=== PATIENT | female | born 1960 | race Caucasian/White ===

== ENCOUNTER 2018-10-28 10:48 | Observation (INO) | payer MEDICARE, OTHER ==
[2018-10-24 14:25] LABS: BASOPHILS % 0.4 % (0.0-1.0); EOSINOPHILS # (AUTO) 0.1 (0.0-0.4); EOSINOPHILS % 1.1 % (0.0-6.0); HEMATOCRIT 44.6 % (34.2-44.1); HEMOGLOBIN 14.9 g/dL (12.0-16.0); LYMPHOCYTES # (AUTO) 1.9 (1.0-3.2); LYMPHOCYTES % 27.2 % (18.0-39.1); MEAN CORPUSCULAR HGB CONC 33.4 g/dL (31-35); MEAN CORPUSCULAR VOLUME 86.8 fL (81-99); MONOCYTES # (AUTO) 0.6 (0.2-0.8); NEUTROPHILS # (AUTO) 4.3 (2.1-6.9); NEUTROPHILS % 61.9 % (38.7-80.0); PLATELET COUNT 205 x10e3/uL (140-360); RED BLOOD COUNT 5.14 x10e6/uL (3.6-5.1); RED CELL DISTRIBUTION WIDTH 12.3 % (11.7-14.4)
[2018-10-24 14:41] LABS: ANION GAP 19.2 mmol/L (8-16); BLOOD UREA NITROGEN 10 mg/dL (7-26); BUN/CREATININE RATIO 13 (6-25); CALCIUM 9.7 mg/dL (8.4-10.2); CARBON DIOXIDE 30 mmol/L (22-29); CHLORIDE 94 mmol/L (98-107); CREATININE, SERUM 0.77 mg/dL (0.57-1.11); EST GLOMERULAR FILTRATION RATE > 60 ML/MIN (60-); GLUCOSE 151 mg/dL (74-118); POTASSIUM 4.2 mmol/L (3.5-5.1); SODIUM 139 mmol/L (136-145)
[~2018-10-28] VITALS: Ht 172.7 cm; Wt 137.0 kg
[~2018-10-28 10:48] MED LIST: AMLODIPINE BESYL5 MG PO; CYCLOBENZAPRINE10 MG PO; CYMBALTA30 MG PO; FUROSEMIDE40 MG PO; GABAPENTIN400 MG PO; GLIPIZIDE ER5 MG PO; HUMULIN R100 UNIT/2 SC; INSULIN 70/30 SQ; JANUVIA100 MG PO; METFORMIN HCL500 M1 PO; MYRBETRIQ50 MG PO; PRAMIPEXOLE D0.25 MG PO; PRAVASTATIN SOD40 MG PO; TYLENOL WITH C1 EAC1 PO; VASOTEC10 MG PO
--- OUTSIDE RECORDS SUMMARY | 2018-10-28 10:53 | XMS REPORT ---
Author Author [facility] Address Unknown Phone Unavailable Care Team Providers Care Visual Associate Name Role Phone Unavailable Unavailable Problems This patient has no known problems. Allergies, Adverse Reactions, Alerts This patient has no known allergies or adverse reactions. Medications This patient has no known medications. Results Test Description Test Time Test Comments Text Results Atomic Results Result Comments SCR MAMM BILATERAL DOMINIQUE CAD DIGITAL 2018-04-14 16:43:19 - SCR MAMM BILATERAL DOMINIQUE CAD DIGITALBILATERAL DIGITAL SCREENING MAMMOGRAM 3D/2D WITH CAD: 03/28/2018CLINICAL: Asymptomatic. Digital breast tomosynthesis was performed in addition to routine CC and MLO views. Current mammographic images were evaluated by either a [employer] M-Vu or a [employer] ImageChecker CAD (computer aided detection system). Comparison is made to exams dated 01/28/2013 mammogram, mammogram, and 09/12/2010 mammogram - [facility]. There are scattered fibroglandular tissues in both breasts. There are benign calcifications in both breasts. No suspicious mass, architectural distortion, malignant type calcification, or lymph node abnormality detected. Breast architecture is stable compared to prior exams.IMPRESSION: BENIGNThere is no mammographic evidence of malignancy. Resume annual screening mammography in one year. Saba roe/arabella:04/14/2018 16:43:19 Entry: bhupinder - 04/15/2018 11:04:16Attending Technologist: Estefany Buck MM, [facility] [place] [facility] MammographyImaging Technologist: Britney Thompson MM, [facility] [place] Mobile Mammographyletter sent: BIRADS 1-2 Normal Mammogram BI-RADS: 2 Benign
[2018-10-28] MEDS ORDERED: CEFAZOLIN SOD 1 GM/NS 50ML 50 ML IV ONE (11:18)
[2018-10-28] MEDS ORDERED: BACITRACIN 50,000 UNIT VIAL ONE (14:52)
[2018-10-28] MEDS ORDERED: BUPIVACAINE HCL 0.5% INJ 30 ML VIAL INJ ONE (15:03)
[2018-10-28] MEDS ORDERED: MORPHINE SULFATE 5 MG/ML VIAL IV PRN (15:15)
[2018-10-28] MEDS ORDERED: DEXTROSE 50% SYRINGE 50 ML IV PRN (15:15)
[2018-10-28] MEDS ORDERED: HYDROCODONE/APAP 5MG-325MG TAB PO PRN (15:15)
[2018-10-28] MEDS ORDERED: ONDANSETRON HCL INJ 2MG/ML 2ML 2 MG/ML VIAL IV PRN (15:15)
[2018-10-28] MEDS ORDERED: METOCLOPRAMIDE HCL 10 MG/2ML VIAL ONE (15:40)
--- NOTE | 2018-10-28 16:02 | Operative Report ---
DATE OF PROCEDURE: 10/28/2018 SURGEON: Alejandro Stone MD PREOPERATIVE DIAGNOSIS: Incarcerated incisional hernia. POSTOPERATIVE DIAGNOSIS: Incarcerated incisional hernia. PROCEDURES: Repair of incarcerated incisional hernia with mesh, partial omentectomy. STAMP MAKER: None. ANESTHESIA: General. INDICATIONS AND FINDINGS: The patient is a 58-year-old female, who presented with complaints of pain and bulge at the upper end of her lower midline wound from previous surgery. Surgery based on the chronically incarcerated incisional hernia, containing a large mass of omentum, which could not be reduced. The herniated mass was about 12 cm in diameter while the fascial defect was about 3 cm in diameter. TECHNIQUE: After adequate general endotracheal anesthesia, the patient in supine position, the abdomen was prepped and draped in sterile fashion with ChloraPrep solution. Transverse incision was made over the area of the hernia, carried down through subcutaneous tissue. The herniated mass was dissected free from the surrounding tissues down to the fascia and freed from the fascia throughout the circumference of the hernia defect. Hernia sac was opened, contained omentum which could not be reduced in the peritoneal cavity. Partial omentectomy was done. The omentum was divided between clamps and the herniated omentum removed and the divided omentum ligated with 2-0 Vicryl. This was then reduced through the hernia defect into the peritoneal cavity. A few adhesions of the edge of the fascia were also lysed. A Sepramesh of appropriate size was soaked in antibiotic solution placed on the undersurface of the fascia and sutured to the undersurface of the fascia with a running horizontal mattress suture of 0 prolene. Thinned out edge of the fascia were then closed transversely over the mesh with a running suture of 0 prolene. Hemostasis of the wound was seen to be adequate. It was irrigated with antibiotic solution, it was then infiltrated with 0.5% Marcaine. A 19-Lao Noe drain was placed in the wound through a separate stab incision. The wound was then closed with 3-0 Vicryl, subcutaneous tissue and denzel for the skin. Sterile dressing was applied. The patient tolerated the procedure well. Estimated blood loss was 50 mL. There were no complications. All counts were correct. The patient was taken to the recovery room in satisfactory condition. MD FE Gloria/WOODY /[id number]
[2018-10-28] MEDS: INSULIN LISPRO 100 UNIT/1 ML 3ML VIAL SQ SCH ×2 (16:30→21:15)
[2018-10-28 16:50] VITALS: BP 121/58
[2018-10-28 16:52] VITALS: BP 124/55
[2018-10-28] MEDS ORDERED: INSULIN SQ SCH (17:00)
[2018-10-28] MEDS ORDERED: MORPHINE SULFATE INJ 4 MG/ML INJ 1ML IV PRN (17:15)
[2018-10-28] MEDS ORDERED: LABETALOL HCL 5 MG/ML 20ML VIAL ONE (17:25)
[2018-10-28] MEDS ORDERED: LIDOCAINE HCL 2% LOCAL INJ 5 ML SDV VIAL INJ ONE (17:25)
[2018-10-28] MEDS ORDERED: ROCURONIUM BROMIDE 10 MG/ML 5ML VIAL ONE (17:25)
[2018-10-28] MEDS ORDERED: SEVOFLURANE INHAL SOLN 250 ML PEN BTL ONE (17:25)
[2018-10-28] MEDS ORDERED: DEXAMETHASONE SOD PHOS INJ 4 MG/ML VIAL ONE (17:25)
[2018-10-28] MEDS ORDERED: SUCCINYLCHOLINE 200 MG/10 ML SYR ONE (17:25)
[2018-10-28] MEDS ORDERED: ONDANSETRON HCL INJ 2MG/ML 2ML 2 MG/ML VIAL ONE (17:25)
[2018-10-28] MEDS ORDERED: PROPOFOL IV EMULSION 10 MG/ML 20 ML VIAL ONE (17:25)
[2018-10-28] MEDS: HUMULIN 70/30 VIAL SQ SCH (17:30)
[2018-10-28] MEDS: ENALAPRIL MALEATE 10 MG TAB PO SCH (17:33)
[2018-10-28] MEDS: GLIPIZIDE 5 MG TAB ER PO SCH (17:33)
[2018-10-28] MEDS: GABAPENTIN 400 MG CAP PO SCH (17:33)
[2018-10-28] MEDS: METFORMIN HCL 500 MG TAB CR PO SCH (17:33)
[2018-10-28] MEDS ORDERED: FENTANYL CITRATE/PF 100MCG/2 ML INJ ONE (18:47)
[2018-10-28] MEDS ORDERED: MIDAZOLAM HCL 2 MG/2 ML VIAL ONE (18:47)
[2018-10-28 20:00] VITALS: BP 105/53
[2018-10-28] MEDS ORDERED: PRAVASTATIN 20 MG TAB PO SCH (21:00)
[2018-10-28] MEDS ORDERED: NON-FORMULARY MEDICATION (Pravastatin Sodium 40 MG) PO SCH (21:00)
[2018-10-28] MEDS ORDERED: PRAMIPEXOLE DIHYDROCHLORIDE 0.25 MG TAB PO SCH (21:00)
[2018-10-28] MEDS: CYCLOBENZAPRINE HCL 10 MG TAB PO SCH (21:16)
[2018-10-29] VITALS: BP 126/57
[2018-10-29] MEDS: SODIUM CHLORIDE 0.9% 1000ML 1,000 ML IV SCH ×3 (01:04→11:04)
[2018-10-29 04:00] VITALS: BP 130/68
[2018-10-29 05:17] VITALS: BP 126/57
[2018-10-29 05:44] LABS: BASOPHILS % 0.3 % (0.0-1.0); HEMATOCRIT 37.2 % (34.2-44.1); HEMOGLOBIN 12.3 g/dL (12.0-16.0); LYMPHOCYTES # (AUTO) 1.3 (1.0-3.2); LYMPHOCYTES % 16.5 % (18.0-39.1); MEAN CORPUSCULAR HEMOGLOBIN 28.5 pg (28-32); MEAN CORPUSCULAR HGB CONC 33.1 g/dL (31-35); MEAN CORPUSCULAR VOLUME 86.1 fL (81-99); MONOCYTES # (AUTO) 0.9 (0.2-0.8); MONOCYTES % 10.9 % (4.4-11.3); NEUTROPHILS # (AUTO) 5.7 (2.1-6.9); NEUTROPHILS % 71.7 % (38.7-80.0); PLATELET COUNT 180 x10e3/uL (140-360); RED BLOOD COUNT 4.32 x10e6/uL (3.6-5.1); RED CELL DISTRIBUTION WIDTH 12.5 % (11.7-14.4)
[2018-10-29 06:05] LABS: ANION GAP 17.2 mmol/L (8-16); BLOOD UREA NITROGEN 17 mg/dL (7-26); BUN/CREATININE RATIO 20 (6-25); CARBON DIOXIDE 26 mmol/L (22-29); CHLORIDE 97 mmol/L (98-107); CREATININE, SERUM 0.83 mg/dL (0.57-1.11); EST GLOMERULAR FILTRATION RATE > 60 ML/MIN (60-); GLUCOSE 319 mg/dL (74-118); POTASSIUM 5.2 mmol/L (3.5-5.1); SODIUM 135 mmol/L (136-145)
--- NOTE | 2018-10-29 06:50 | NUR ---
Report given to LYNN Bruce dayshift nurse at this time.
[2018-10-29] MEDS ORDERED: SOD POLYSTYRENE SULFONATE SUSP 15 GM/60 ML BTL PO ONE (07:45)
[2018-10-29] MEDS ORDERED: NORCO 5-325 TA1 EACH PO (07:53)
[2018-10-29] MEDS ORDERED: SOD POLYSTYRENE SULFONATE SUSP 15 GM/60 ML BTL ONE (08:06)
[2018-10-29 08:14] VITALS: BP 114/61
[2018-10-29] MEDS: INSULIN LISPRO 100 UNIT/1 ML 3ML VIAL SQ SCH ×2 (08:22→12:12)
[2018-10-29] MEDS: CYCLOBENZAPRINE HCL 10 MG TAB PO SCH (08:23)
[2018-10-29] MEDS: METFORMIN HCL 500 MG TAB CR PO SCH (08:23)
[2018-10-29] MEDS: GABAPENTIN 400 MG CAP PO SCH (08:23)
[2018-10-29] MEDS: GLIPIZIDE 5 MG TAB ER PO SCH (08:23)
[2018-10-29] MEDS: ENALAPRIL MALEATE 10 MG TAB PO SCH (08:24)
--- NOTE | 2018-10-29 08:25 | NUR ---
discharge instructions and prescriptions given. theron drain teaching complete iv dc pressure dressing applied and taped pt is waiting for ride home
[2018-10-29] MEDS: HUMULIN 70/30 VIAL SQ SCH (08:49)
[2018-10-29] MEDS ORDERED: DULOXETINE HCL 20 MG DELAYED RELEASE PO SCH (09:00)
[2018-10-29] MEDS ORDERED: FUROSEMIDE 20 MG TAB PO SCH (09:00)
[2018-10-29] MEDS ORDERED: MYRBETRIQ PO SCH (09:00)
[2018-10-29] MEDS ORDERED: AMLODIPINE BESYLATE 5 MG TAB PO SCH (09:00)
[2018-10-29] MEDS ORDERED: FUROSEMIDE 40 MG TAB PO SCH (09:00)
[2018-10-29] MEDS ORDERED: DULOXETINE HCL 30 MG DELAYED RELEASE PO SCH (09:00)
[2018-10-29] MEDS ORDERED: SITAGLIPTIN 100 MG TAB PO SCH (09:00)
[2018-10-29] MEDS ORDERED: ONDANSETRON HCL 4 MG ORAL DISINTEGRATING TAB PO PRN (09:15)
[2018-10-29 09:44] VITALS: BP 114/61
[2018-10-29 12:22] VITALS: BP 138/63
--- NOTE | 2018-10-29 12:25 | NUR ---
PT OFF UNIT TO HOME VIA WHEEL CHAIR
--- NOTE | 2018-10-29 17:43 | NUR ---
KUMAR EXPLAINED TO PT, SIGNED BY PT AND PLACED ON CHART COPY TO PT IN CARE TRANSITIONS FOLDER
[2018-10-29] MEDS ORDERED: SIMVASTATIN 20 MG TAB PO SCH (21:00)
== END 2018-10-29 12:25 | disposition home or self-care (01) ==
LOC: OR 10:48 → RAD HOLD 15:26 → MED/SURG 16:42
PROVIDERS: ADMIT Surgery; ATTEND Surgery
DX: K43.0 Incisional hernia with obstruction, without gangrene (principal); I10 Essential (primary) hypertension; E11.9 Type 2 diabetes mellitus without complications; E78.5 Hyperlipidemia, unspecified; G62.9 Polyneuropathy, unspecified; F32.9 Major depressive disorder, single episode, unspecified
CPT/HCPCS: 36415 ×3; 49561; 49568; 80048 ×2; 82948 ×2; 85025 ×2; 88302; 93005; C1781; G0378 ×2; J0690; J1100; J2001; J2250; J2405; J2704; J2765; J3010; J3490; J7030

== ENCOUNTER 2018-11-05 17:37 | Inpatient (IN) | payer MEDICARE, OTHER ==
[~2018-11-05] VITALS: Ht 172.7 cm; Wt 142.9 kg
[~2018-11-05 17:37] MED LIST changes: +NORCO 5-325 TA1 EACH PO
[2018-11-05] MEDS ORDERED: ASPIRIN 81 MG CHEW TAB PO ONE (18:15)
[2018-11-05 18:26] LABS: BASOPHILS % 0.2 % (0.0-1.0); EOSINOPHILS % 0.2 % (0.0-6.0); HEMATOCRIT 35.8 % (34.2-44.1); HEMOGLOBIN 12.1 g/dL (12.0-16.0); LYMPHOCYTES # (AUTO) 1.2 (1.0-3.2); MEAN CORPUSCULAR HEMOGLOBIN 28.9 pg (28-32); MEAN CORPUSCULAR HGB CONC 33.8 g/dL (31-35); MEAN CORPUSCULAR VOLUME 85.6 fL (81-99); MONOCYTES # (AUTO) 1.3 (0.2-0.8); MONOCYTES % 12.4 % (4.4-11.3); NEUTROPHILS % 75.5 % (38.7-80.0); PLATELET COUNT 208 x10e3/uL (140-360); RED BLOOD COUNT 4.18 x10e6/uL (3.6-5.1); RED CELL DISTRIBUTION WIDTH 12.6 % (11.7-14.4)
[2018-11-05] MEDS ORDERED: ONDANSETRON HCL INJ 2MG/ML 2ML 2 MG/ML VIAL IV ONE (18:29)
[2018-11-05] MEDS ORDERED: SODIUM CHLORIDE 0.9% 1000ML 1,000 ML IV STA (18:29)
[2018-11-05] MEDS ORDERED: KETOROLAC TROMETHAMINE 30 MG/ML VIAL IV ONE (18:29)
[2018-11-05] MEDS ORDERED: ACETAMINOPHEN 325 MG TAB PO PRN (18:30)
[2018-11-05 18:35] LABS: INR 1.11; PROTHROMBIN TIME 14.8 seconds (11.9-14.5)
[2018-11-05 18:36] LABS: PARTIAL THROMBOPLASTIN TIME 36.6 seconds (23.8-35.5)
[2018-11-05 18:42] LABS: ALANINE AMINOTRANSFERASE 27 IU/L (0-55); ALBUMIN 2.7 g/dL (3.5-5.0); ALBUMIN/GLOBULIN RATIO 0.7 (0.8-2.0); ALKALINE PHOSPHATASE 84 IU/L (40-150); ANION GAP 17.4 mmol/L (8-16); BLOOD UREA NITROGEN 10 mg/dL (7-26); BUN/CREATININE RATIO 11 (6-25); CALCIUM 9.2 mg/dL (8.4-10.2); CARBON DIOXIDE 25 mmol/L (22-29); CHLORIDE 94 mmol/L (98-107); CREATINE KINASE 60 IU/L (29-168); CREATININE, SERUM 0.88 mg/dL (0.57-1.11); EST GLOMERULAR FILTRATION RATE > 60 ML/MIN (60-); GLUCOSE 239 mg/dL (74-118); POTASSIUM 4.4 mmol/L (3.5-5.1); SODIUM 132 mmol/L (136-145)
[2018-11-05] MEDS ORDERED: PIPER-TAZ 3.375 GM 50 ML IV ONE (18:45)
[2018-11-05] MEDS ORDERED: VANCOMYCIN 1GM/NS 250 ML 250 ML IV ONE (18:45)
--- NOTE | 2018-11-05 19:53 | Diagnostic Imaging Report ---
EXAM: CT Abdomen and Pelvis WITH contrast INDICATION: ^abd pain COMPARISON: None. TECHNIQUE: Abdomen and pelvis were scanned utilizing a multidetector helical scanner from the lung base to the pubic symphysis after administration of IV contrast. Coronal and sagittal reformations were obtained. Dose modulation, iterative reconstruction, and/or weight based adjustment of the mA/kV was utilized to reduce the radiation dose to as low as reasonably achievable. Routine protocol was performed. Scan was performed when during portal venous phase. IV CONTRAST: 100 mL of Isovue-370 ORAL CONTRAST: None. COMPLICATIONS: None RADIATION DOSE: Total DLP: 1254.63 mGy*cm Estimated effective dose: (DLP x 0.015 x size factor) mSv CTDIvol has been reviewed. It is below the limits set by the Radiation Protocol Committee (RPC). FINDINGS: LINES and TUBES: None. LOWER THORAX: Right lower lobe calcified granuloma. Otherwise, unremarkable. HEPATOBILIARY: Hepatomegaly. No focal hepatic lesions. No biliary ductal dilation. GALLBLADDER: Not visualized. SPLEEN: Splenomegaly. Several punctate calcified granulomas. PANCREAS: No focal masses or ductal dilatation. ADRENALS: No adrenal nodules KIDNEYS/URETERS: Kidneys enhance symmetrically. No hydronephrosis. No cystic or solid mass lesions. No stones. GI TRACT: No abnormal distention, wall thickening, or evidence of bowel obstruction. Appendix is normal. PELVIC ORGANS/BLADDER: Unremarkable. LYMPH NODES: No lymphadenopathy. VESSELS: Unremarkable. PERITONEUM / RETROPERITONEUM: No free air or fluid. BONES: Degenerative changes of the thoracolumbar spine. SOFT TISSUES: Persistent fat-containing periumbilical hernia measuring 6.3 x 4.3 cm. There is adjacent abdominal wall gas containing collection measuring 9.4 x 5.8 cm with adjacent moderate inflammation/edema of the abdominal wall. IMPRESSION: 1. Fat-containing periumbilical hernia with internal fat stranding. Adjacent approximately 9.4 cm abdominal wall gas containing fluid collection, concerning for developing abscess. Surrounding inflammation/edema. 2. Hepatosplenomegaly. Signed by: Dr. Sunny Valentine MD on 11/05/2018 7:50 PM
--- NOTE | 2018-11-05 19:54 | Diagnostic Imaging Report ---
EXAMINATION: CHEST SINGLE (PORTABLE) INDICATION: ^ERMD ORDER ^[id number] ^192 ^Y COMPARISON: None FINDINGS: AP view TUBES and LINES: None. LUNGS: Lungs are well inflated. There is no evidence of pneumonia or pulmonary edema. PLEURA: No pleural effusion or pneumothorax. HEART AND MEDIASTINUM: The cardiomediastinal silhouette is unremarkable. BONES AND SOFT TISSUES: No acute osseous lesion. Soft tissues are unremarkable. UPPER ABDOMEN: No free air under the diaphragm. IMPRESSION: No acute thoracic abnormality. Signed by: Dr. Sunny Valentine MD on 11/05/2018 7:50 PM
[2018-11-05] MEDS ORDERED: MORPHINE SULFATE 2 MG/ML SYR 1ML IV PRN (20:45)
[2018-11-05] MEDS ORDERED: MORPHINE SULFATE INJ 4 MG/ML INJ 1ML IV PRN (20:45)
[2018-11-05] MEDS ORDERED: DEXTROSE 50% SYRINGE 50 ML IV PRN (20:45)
[2018-11-05] MEDS: INSULIN REGULAR, HUMAN 100 UNIT/1 ML 3ML VIAL SQ SCH (21:00)
[2018-11-05] MEDS ORDERED: SODIUM CHLORIDE 0.9% 50ML 50 ML ONE (21:23)
[2018-11-05] MEDS ORDERED: IOPAMIDOL 370 MG/ML 200 ML INFUS..BTL INJ ONE (21:23)
[2018-11-05] MEDS: SODIUM CHLORIDE 0.9% 1000ML 1,000 ML IV SCH (22:06)
[2018-11-05] MEDS: ONDANSETRON HCL INJ 2MG/ML 2ML 2 MG/ML VIAL IV PRN (22:06)
[2018-11-05] MEDS: CEFEPIME 1GM/NS 0.9% 50 ML 50 ML IV SCH (22:06)
--- NOTE | 2018-11-05 22:23 | NUR ---
Received report from ER nurse.
[2018-11-05] MEDS: ACETAMINOPHEN 325 MG TAB PO PRN (22:54)
[2018-11-05] MEDS: VANCOMYCIN 1GM/NS 250 ML 250 ML IV SCH (22:54)
--- NOTE | 2018-11-05 23:00 | NUR ---
Patient arrived to floor via stretcher.
[2018-11-05] MEDS: METRONIDAZOLE 500MG/NS 100ML 100 ML IV SCH (23:40)
[2018-11-06] VITALS (8 sets, daily range): BP systolic 118–152; BP diastolic 56–67
[2018-11-06] MEDS: ONDANSETRON HCL INJ 2MG/ML 2ML 2 MG/ML VIAL IV PRN ×2 (03:32→23:09)
--- NOTE | 2018-11-06 03:32 | NUR ---
Patient c/o nausea, meds given as ordered by MD.
[2018-11-06] MEDS: ACETAMINOPHEN 325 MG TAB PO PRN ×2 (05:19→14:30)
[2018-11-06] MEDS: METRONIDAZOLE 500MG/NS 100ML 100 ML IV SCH ×3 (05:20→23:50)
[2018-11-06 05:24] LABS: BASOPHILS % 0.3 % (0.0-1.0); EOSINOPHILS % 0.3 % (0.0-6.0); HEMATOCRIT 34.8 % (34.2-44.1); HEMOGLOBIN 11.5 g/dL (12.0-16.0); LYMPHOCYTES # (AUTO) 1.5 (1.0-3.2); LYMPHOCYTES % 13.6 % (18.0-39.1); MEAN CORPUSCULAR HEMOGLOBIN 28.7 pg (28-32); MEAN CORPUSCULAR VOLUME 86.8 fL (81-99); MONOCYTES # (AUTO) 1.6 (0.2-0.8); MONOCYTES % 14.5 % (4.4-11.3); NEUTROPHILS % 70.6 % (38.7-80.0); PLATELET COUNT 182 x10e3/uL (140-360); RED BLOOD COUNT 4.01 x10e6/uL (3.6-5.1); RED CELL DISTRIBUTION WIDTH 12.7 % (11.7-14.4)
[2018-11-06] MEDS ORDERED: MECLIZINE HCL 12.5 MG TAB PO PRN (05:30)
[2018-11-06 05:38] LABS: ANION GAP 14.9 mmol/L (8-16); BLOOD UREA NITROGEN 15 mg/dL (7-26); BUN/CREATININE RATIO 19 (6-25); CALCIUM 9.2 mg/dL (8.4-10.2); CARBON DIOXIDE 25 mmol/L (22-29); CHLORIDE 99 mmol/L (98-107); EST GLOMERULAR FILTRATION RATE > 60 ML/MIN (60-); GLUCOSE 246 mg/dL (74-118); POTASSIUM 4.9 mmol/L (3.5-5.1); SODIUM 134 mmol/L (136-145)
[2018-11-06] MEDS: PIPER-TAZ 3.375 GM 50 ML IV SCH ×3 (05:51→18:10)
[2018-11-06] MEDS: SODIUM CHLORIDE 0.9% 1000ML 1,000 ML IV SCH ×2 (06:32→18:18)
--- NOTE | 2018-11-06 07:00 | NUR ---
BEDSIDE SHIFT REPORT RECEIVED FROM THE COMMERCIAL CORRESPONDENT RN. PT DENIES NEEDS AT THIS TIME.
[2018-11-06] MEDS: INSULIN REGULAR, HUMAN 100 UNIT/1 ML 3ML VIAL SQ SCH ×4 (08:00→21:00)
[2018-11-06 08:06] LABS: BILIRUBIN,URINE NEGATIVE (NEGATIVE); CLARITY,URINE CLEAR (CLEAR); COLOR,URINE YELLOW (YELLOW); KETONES,URINE TRACE (NEGATIVE); LEUKOCYTE ESTERASE ,URINE NEGATIVE (NEGATIVE); NITRITE,URINE NEGATIVE (NEGATIVE); PROTEIN,URINE DIPSTICK NEGATIVE (NEGATIVE); URINE UROBILINOGEN 0.2 mg/dL (0.2 - 1)
--- NOTE | 2018-11-06 08:23 | NUR ---
PT OFF UNIT FOR PROCEDURE IN SAFE CONDITION.
[2018-11-06 08:29] LABS: BACTERIA,URINE MODERATE /HPF; EPITHELIAL CELLS,URINE RARE /LPF; RBC,URINE 0-5 /HPF (0-5)
[2018-11-06] MEDS ORDERED: MORPHINE SULFATE INJ 4 MG/ML INJ 1ML IV PRN (08:45)
--- NOTE | 2018-11-06 08:50 | NUR ---
PT BACK TO UNIT AFTER PROCEDURE. PT DENIES NEEDS AT THIS TIME.
[2018-11-06] MEDS ORDERED: INSULIN SQ SCH (09:00)
[2018-11-06] MEDS ORDERED: DULOXETINE HCL 30 MG DELAYED RELEASE PO SCH (09:00)
[2018-11-06] MEDS ORDERED: NON-FORMULARY MEDICATION (Mirabegron (Myrbetriq) 50 MG) PO SCH (09:00)
[2018-11-06] MEDS: NON-FORMULARY MEDICATION (Mirabegron (Myrbetriq) 50 MG) PO SCH (09:00)
[2018-11-06] MEDS ORDERED: FUROSEMIDE 40 MG TAB PO SCH (09:00)
[2018-11-06] MEDS: FAMOTIDINE 20 MG TAB PO SCH ×2 (09:26→18:10)
[2018-11-06] MEDS: AMLODIPINE BESYLATE 5 MG TAB PO SCH (09:34)
[2018-11-06] MEDS: FUROSEMIDE 20 MG TAB PO SCH (09:34)
[2018-11-06] MEDS: GABAPENTIN 400 MG CAP PO SCH ×2 (09:34→18:10)
[2018-11-06] MEDS: SITAGLIPTIN 100 MG TAB PO SCH (09:34)
[2018-11-06] MEDS: PRAMIPEXOLE DIHYDROCHLORIDE 0.25 MG TAB PO SCH (09:34)
[2018-11-06] MEDS: CYCLOBENZAPRINE HCL 10 MG TAB PO SCH ×3 (09:34→22:20)
[2018-11-06] MEDS: DULOXETINE HCL 20 MG DELAYED RELEASE PO SCH (09:34)
--- NOTE | 2018-11-06 09:42 | Diagnostic Imaging Report ---
Exam: Head CT without contrast History: Trauma, fall Comparison studies: None Technique: Axial images were obtained from the skull base to the vertex. Coronal and sagittal images reconstructed from the axial data. Dose modulation, iterative reconstruction, and/or weight based adjustment of the mA/kV was utilized to reduce the radiation dose to as low as reasonably achievable. Radiation dose: Total DLP: 832 mGy*cm. Estimated effective dose: DLP x 0.015 Intravenous contrast: None Findings: Scalp: No abnormalities. Bones: No fractures, blastic or lytic lesions. Brain sulci: Appropriate for age. Ventricles: Normal in size and configuration. No hydrocephalus. Extra-axial spaces: No masses, no fluid collection. Parenchyma: A few scattered hypodensities in the supratentorial white matter are nonspecific but most compatible with chronic small vessel ischemic changes. No mass, acute hemorrhage or acute cortical vascular insults. Sellar/suprasellar region: Partially CSF filled sella. Craniocervical junction: Patent foramen magnum. No Chiari one malformation. Incidental findings: Right lens replacement presumably for previous cataract surgery. Atherosclerotic calcifications in the carotid siphons and intradural vertebral arteries. IMPRESSION: 1. No acute abnormalities. 2. Mild chronic microvascular ischemic changes. Signed by: Dr. Alejandro Forrest M.D. on 11/06/2018 9:38 AM
[2018-11-06] MEDS: ENALAPRIL MALEATE 10 MG TAB PO SCH ×2 (10:00→18:10)
[2018-11-06] MEDS: INSULIN ASPART 70/30 100 UNITS/ML VIAL SC SCH ×2 (10:00→18:00)
--- NOTE | 2018-11-06 11:40 | NUR ---
Notified [facility] So that pt has [facility], gave order to change admitting to Dr. Peña. CM spoke with Dr. Peña who agrees to accept pt. Gave lab orders, which were entered into system.
[2018-11-06 13:14] LABS: CHOL/HDL RATIO 2.8 (3.0-3.6)
--- NOTE | 2018-11-06 16:00 | NUR ---
DR. PARKS AT BEDSIDE TO SEE THE PT.
--- NOTE | 2018-11-06 19:00 | NUR ---
BEDSIDE SHIFT REPORT GIVEN TO THE CONSULTING NURSE RN. PT DENIES NEEDS AT THIS TIME.
--- NOTE | 2018-11-06 19:33 | NUR ---
Patient received lying in bed. AAO x 3. Patient had no complaints of pain. No signs of respiratory distress. IVF infusing at 100 cc / hr. Bed locked and in lowest position. Bed rails up x 2. Patient instructed to call for assistance when needed. Call light within reach.
[2018-11-06] MEDS ORDERED: NON-FORMULARY MEDICATION (Pravastatin Sodium 40 MG) PO SCH ×2 (21:00)
[2018-11-06] MEDS: CEFEPIME 1GM/NS 0.9% 50 ML 50 ML IV SCH (22:20)
[2018-11-06] MEDS: PRAVASTATIN 20 MG TAB PO SCH (22:20)
--- NOTE | 2018-11-06 22:48 | Consultation ---
DATE OF CONSULTATION: 11/06/2018 HISTORY OF PRESENT ILLNESS: The patient is a 58-year-old female, who is known to me. She had repair of an incarcerated incisional hernia about 9 days ago. She was seen in my office a couple days ago, denzel removed at that time. She had slight erythema around the drain site, which she has had a drain, was removed. The patient apparently has had low-grade fever and she fell at home and came back to the hospital. A CT of the abdomen and pelvis was done, which revealed fluid collection in the abdominal wound with some postsurgical changes, also small hernia seen in the periumbilical area. The patient denies any abdominal pain. She does have some nausea. PAST MEDICAL HISTORY: Significant for diabetes, hypertension, peripheral neuropathy, hyperlipidemia, and depression. PAST SURGICAL HISTORY: Includes section, cholecystectomy, recent hernia repair, and previous hernia repair. ALLERGIES: SHE HAS ALLERGY TO METOPROLOL AND SHRIMP. MEDICATIONS: Listed in the chart. FAMILY HISTORY: Noncontributory. SOCIAL HISTORY: The patient occasionally drinks alcohol. Does not smoke cigarettes. REVIEW OF SYSTEMS: Significant only for occasional dizziness and low-grade fever. PHYSICAL EXAMINATION: GENERAL: The patient is awake and alert, in no distress. VITAL SIGNS: Normal. She still has low-grade fever. Temperature 100.8 today. Blood pressure is normal. HEENT: There was no scleral icterus. NECK: Had no masses. LUNGS: Equal breath sounds are clear bilaterally. CARDIAC: Regular rate and rhythm with no murmur. ABDOMEN: Soft. There is some erythema around the drain site on the left side of the abdomen away from the area of the recent hernia repair. There is no drainage noted. There is no crepitus. EXTREMITIES: Have no edema. NEUROLOGIC: Grossly intact. LABORATORY TEST: The white blood count on admission was 10.6, repeat was 11.3, hemoglobin 11.5, and hematocrit 35. Chemistries were essentially normal. ASSESSMENT: This is a 58-year-old female, status post repair of incarcerated incisional hernia. There is postop seroma, which is part of the primary findings seen on CT scan. I do not think this is an abscess because clinically the site of the hernia repair is clean with no erythema, but there is some cellulitis around the drain site. At this point, I recommend continue the patient on antibiotics as have been ordered. She may have diet as tolerated. Hopefully, the seroma will not become infected, if it does then she may require a drainage procedure, but at this point, I think it may resolve without surgery. Thank you for asking me to see Ms. Johnson. MD FE Gloria/WOODY /[id number]
[2018-11-06] MEDS: VANCOMYCIN 1GM/NS 250 ML 250 ML IV SCH (22:50)
[2018-11-07] VITALS (11 sets, daily range): BP systolic 108–147; BP diastolic 51–85
[2018-11-07] MEDS: PIPER-TAZ 3.375 GM 50 ML IV SCH ×5 (00:30→23:50)
[2018-11-07] MEDS: ACETAMINOPHEN 325 MG TAB PO PRN ×3 (01:37→16:17)
[2018-11-07 04:00] LABS: BASOPHILS % 0.3 % (0.0-1.0); EOSINOPHILS % 0.1 % (0.0-6.0); HEMATOCRIT 32.8 % (34.2-44.1); HEMOGLOBIN 10.9 g/dL (12.0-16.0); LYMPHOCYTES # (AUTO) 1.6 (1.0-3.2); LYMPHOCYTES % 16.6 % (18.0-39.1); MEAN CORPUSCULAR HEMOGLOBIN 28.2 pg (28-32); MEAN CORPUSCULAR HGB CONC 33.2 g/dL (31-35); MEAN CORPUSCULAR VOLUME 84.8 fL (81-99); MONOCYTES # (AUTO) 1.2 (0.2-0.8); MONOCYTES % 12.8 % (4.4-11.3); NEUTROPHILS # (AUTO) 6.6 (2.1-6.9); NEUTROPHILS % 69.7 % (38.7-80.0); PLATELET COUNT 216 x10e3/uL (140-360); RED BLOOD COUNT 3.87 x10e6/uL (3.6-5.1); RED CELL DISTRIBUTION WIDTH 12.5 % (11.7-14.4)
[2018-11-07 04:29] LABS: ANION GAP 11.8 mmol/L (8-16); BLOOD UREA NITROGEN 8 mg/dL (7-26); BUN/CREATININE RATIO 12 (6-25); CALCIUM 8.8 mg/dL (8.4-10.2); CARBON DIOXIDE 28 mmol/L (22-29); CHLORIDE 98 mmol/L (98-107); CHOL/HDL RATIO 2.9 (3.0-3.6); CHOLESTEROL 120 MD/DL (0-199); CREATININE, SERUM 0.65 mg/dL (0.57-1.11); EST GLOMERULAR FILTRATION RATE > 60 ML/MIN (60-); GLUCOSE 75 mg/dL (74-118); HDL CHOLESTEROL 42 MG/DL (40-60); LDL CHOLESTEROL 64 MG/DL (60-130); MAGNESIUM 1.6 MG/DL (1.3-2.1); SODIUM 134 mmol/L (136-145); TRIGLYCERIDES 71 MG/DL (0-149)
[2018-11-07 04:32] LABS: POTASSIUM 3.8 mmol/L (3.5-5.1)
[2018-11-07 04:35] LABS: B-TYPE NATRIURETIC PEPTIDE2 118.3 pg/mL (0-100)
[2018-11-07 04:52] LABS: FREE T4 (FREE THYROXINE) 1.15 ng/dL (0.8-1.8); THYROID STIMULATING HORMONE 0.747 uIU/mL (0.350-4.940)
[2018-11-07] MEDS: SODIUM CHLORIDE 0.9% 1000ML 1,000 ML IV SCH ×3 (05:00→22:32)
[2018-11-07] MEDS: METRONIDAZOLE 500MG/NS 100ML 100 ML IV SCH ×2 (05:28→13:12)
--- NOTE | 2018-11-07 05:28 | NUR ---
IV infiltrated on left arm. New IV inserted in left hand 20G. Patient tolerated well.
--- NOTE | 2018-11-07 07:00 | NUR ---
Patient resting comfortably . Walking rounds done. Shift report given to oncoming nurse.
--- NOTE | 2018-11-07 07:00 | NUR ---
BEDSIDE SHIFT REPORT RECEIVED FROM THE SHEET HANGER RN. BED IS AT THE LOWEST POSITION AND LOCKED. CALL LIGHT WITH IN EASY REACH. INSTRUCTED POT TO CALL FOR NEEDS.PT VERBALIZED UNDERSTANDING. PT REFUSED BED ALARM.
[2018-11-07] MEDS: INSULIN REGULAR, HUMAN 100 UNIT/1 ML 3ML VIAL SQ SCH ×4 (07:30→20:43)
[2018-11-07] MEDS: FAMOTIDINE 20 MG TAB PO SCH ×2 (08:05→16:58)
[2018-11-07] MEDS: INSULIN ASPART 70/30 100 UNITS/ML VIAL SC SCH ×2 (09:00→16:31)
[2018-11-07] MEDS: NON-FORMULARY MEDICATION (Mirabegron (Myrbetriq) 50 MG) PO SCH (09:00)
[2018-11-07] MEDS: DULOXETINE HCL 20 MG DELAYED RELEASE PO SCH (09:19)
[2018-11-07] MEDS: CYCLOBENZAPRINE HCL 10 MG TAB PO SCH ×3 (09:20→20:43)
[2018-11-07] MEDS: SITAGLIPTIN 100 MG TAB PO SCH (09:22)
[2018-11-07] MEDS: PRAMIPEXOLE DIHYDROCHLORIDE 0.25 MG TAB PO SCH (09:23)
[2018-11-07] MEDS: FUROSEMIDE 20 MG TAB PO SCH (09:23)
[2018-11-07] MEDS: GABAPENTIN 400 MG CAP PO SCH ×2 (09:23→16:59)
[2018-11-07] MEDS: ENALAPRIL MALEATE 10 MG TAB PO SCH ×2 (09:24→17:00)
[2018-11-07] MEDS: AMLODIPINE BESYLATE 5 MG TAB PO SCH (09:24)
--- NOTE | 2018-11-07 09:24 | NUR ---
IMM letter delivered and explained to pt. She verbalized understanding. Signed copy placed in chart. Copy to pt.
--- NOTE | 2018-11-07 10:00 | NUR ---
PT REPORTED THAT, WHILE SHE WAS IN THE TOILET AND REACHED OUT TO GRAB HER WIPES, PT SLIDE FROM THE TOILET SEAT AND SAT TO THE FLOOR. PT STATED THAT SHE WAS SITTING ON THE TOILET SEAT AND WAS HAVING A BOWEL MOVEMENT. RN ASSESSED THE PT, PT DENIED ANY PAIN OR DISCOMFORT. PT AMBULATING WELL. NO VISIBLE BRUISES REDNESS OR SWELLING NOTED. ATTENDING MD NOTIFIED, NEGATIVE CUTTER NOTIFIED AND FAMILY MEMBER EMMA (SON) ALSO NOTIFIED. PT DENIED FURTHER NEEDS. EDUCATED PT ABOUT FALL PRECAUTIONS. YELLOW SOCKS ARE ON, BED ALARM IS ON. BED IS AT THE LOWEST POSITION AND LOCKED. CALL LIGHT WITH IN EASY REACH. INSTRUCTED PT TO USE CALL LIGHT FOR ANY NEEDS.
--- NOTE | 2018-11-07 11:00 | NUR ---
PT WALKED 300 FT WITH PT.
--- NOTE | 2018-11-07 11:01 | NUR ---
H&P cc: adbominal wall pain HPI: 58yoF, PCP , developed abdominal wall pain after incarcerated hernia repair. Imaging suggest hematoma. PMH: depression, HTN, Morbid obesity, DM2, PSHx: incarcerated hernia repair ; csection; lap du Allergies; see emr FH/Sh; no illicits; meds; see MAR ROS: no f/c/s/N/V/D/MILLER/vision changes/cp/so v/s: revd PE: tired appearing anicteric ns1s2 mod bs soft; lower abdomen with dressing; mild right abdominal wall firmer than left. skin dry no e/t a&ox3; [place] labs/meds; revd A/P: Incarcerated Incisional hernia- had repaired Abdominal seroma- due to surgery Morbid obesity - 1/2 portion sizes; BMI 45.9 Uncontrolled DM2- Hba1c 9.4; LDL 64 prop: scd Dispo:
--- NOTE | 2018-11-07 12:00 | NUR ---
DR. DUENAS AT BEDSIDE TO SEE THE PT.
--- NOTE | 2018-11-07 14:17 | NUR ---
Wound assessment for redness in sacral area, and to panis and under breast. Redness appears to be from intertrigo and yeast to inner buttocks just below sacrum, panis, and mostly under left breast rather than right. Recommendations are to wash the affected areas daily with soap and water, pat dry, apply venelex with nystatin powder daily.
--- NOTE | 2018-11-07 16:13 | NUR ---
PAGED DR. DUENAS AND LEFT MESSAGE REGARDING PT ELEVATED TEMPERATURE..
[2018-11-07] MEDS: DOCUSATE SODIUM 100 MG CAP PO SCH (16:58)
[2018-11-07] MEDS: SENNA-S TABLET PO SCH (16:59)
--- NOTE | 2018-11-07 19:00 | NUR ---
BEDSIDE SHIFT REPORT GIVEN TO THE TOOLROOM CHECKER RN. PT FAMILY AT BEDSIDE. PT DENIES NEEDS AT THIS TIME.
[2018-11-07] MEDS: VANCOMYCIN 1GM/NS 250 ML 250 ML IV SCH (20:43)
[2018-11-07] MEDS: PRAVASTATIN 20 MG TAB PO SCH (20:43)
[2018-11-07] MEDS ORDERED: MORPHINE SULFATE 2 MG/ML SYR 1ML IV PRN (21:45)
[2018-11-08] VITALS (14 sets, daily range): BP systolic 87–140; BP diastolic 55–118
[2018-11-08] MEDS: ACETAMINOPHEN 325 MG TAB PO PRN ×4 (00:03→22:10)
--- NOTE | 2018-11-08 05:50 | NUR ---
Temp 98.7 F. Pulse 103 b/min. No complaints at this time.
[2018-11-08] MEDS: PIPER-TAZ 3.375 GM 50 ML IV SCH ×3 (06:02→18:26)
[2018-11-08] MEDS: ONDANSETRON HCL INJ 2MG/ML 2ML 2 MG/ML VIAL IV PRN (06:18)
--- NOTE | 2018-11-08 07:00 | NUR ---
BEDSIDE SHIFT REPORT RECEIVED FROM THE MESH WORKER RN. BED IS AT THE LOWEST POSITION AND LOCKED. BED ALARM IS ON. FALL SAFETY PRECAUTIONS IMPLEMENTED. EDUCATED PT ABOUT FALL PRECAUTIONS. FALL PREVENTION YELLOW SOCKS ARE ON WITH PT . CALL LIGHT WITH IN EASY REACH. INSTRUCTED PT TO USE CALL LIGHT FOR ANY NEEDS. PT VERBALIZED UNDERSTANDING. PT DENIES NEEDS AT THIS TIME.
--- NOTE | 2018-11-08 07:13 | NUR ---
IM- progress note O/N: no events ROS: no f/c/s/N/V/D/MILLER/vision changes/cp/so v/s: revd PE: tired appearing anicteric ns1s2 mod bs soft; lower abdomen with dressing; mild right abdominal wall firmer than left. skin dry no e/t a&ox3; [place] labs/meds; revd A/P: Incarcerated Incisional hernia- had repaired Abdominal seroma- due to surgery Morbid obesity - 1/2 portion sizes; BMI 45.9 Uncontrolled DM2- Hba1c 9.4; LDL 64 prop: scd Dispo: 11/08 cont care; 2 antibiotics for coverage. Ignacio Peña MD, PhD.
--- NOTE | 2018-11-08 08:00 | NUR ---
PT IS WALKING WITHOUT ASSISTANCE. NON COMPLIANT WITH FALL PRECAUTIONS.
[2018-11-08] MEDS: INSULIN REGULAR, HUMAN 100 UNIT/1 ML 3ML VIAL SQ SCH ×4 (08:10→21:23)
[2018-11-08] MEDS: FAMOTIDINE 20 MG TAB PO SCH ×2 (08:25→16:30)
[2018-11-08] MEDS: SODIUM CHLORIDE 0.9% 1000ML 1,000 ML IV SCH ×2 (08:32→18:32)
--- NOTE | 2018-11-08 08:50 | NUR ---
PAGED DR. DUENAS AND LEFT MESSAGE REGARDING PT ELEVATED HR.
[2018-11-08] MEDS: NYSTATIN 15 GM POWDER UD BTL TOP SCH (09:00)
[2018-11-08] MEDS: BALSAM PERU/CASTOR OIL 60 GM OINT...G. TP SCH (09:00)
[2018-11-08] MEDS: NON-FORMULARY MEDICATION (Mirabegron (Myrbetriq) 50 MG) PO SCH (09:00)
[2018-11-08] MEDS: ENALAPRIL MALEATE 10 MG TAB PO SCH ×2 (09:00→17:00)
[2018-11-08] MEDS: INSULIN ASPART 70/30 100 UNITS/ML VIAL SC SCH ×2 (09:00→21:23)
[2018-11-08] MEDS: GABAPENTIN 400 MG CAP PO SCH ×2 (09:55→18:27)
[2018-11-08] MEDS: AMLODIPINE BESYLATE 5 MG TAB PO SCH (09:55)
[2018-11-08] MEDS: CYCLOBENZAPRINE HCL 10 MG TAB PO SCH ×3 (09:59→21:20)
[2018-11-08] MEDS: DULOXETINE HCL 20 MG DELAYED RELEASE PO SCH (09:59)
[2018-11-08] MEDS: FUROSEMIDE 20 MG TAB PO SCH (10:00)
[2018-11-08] MEDS: SITAGLIPTIN 100 MG TAB PO SCH (10:00)
[2018-11-08] MEDS: PRAMIPEXOLE DIHYDROCHLORIDE 0.25 MG TAB PO SCH (10:00)
[2018-11-08] MEDS: DOCUSATE SODIUM 100 MG CAP PO SCH ×2 (10:08→18:27)
[2018-11-08] MEDS: SENNA-S TABLET PO SCH ×2 (10:08→18:27)
--- NOTE | 2018-11-08 10:47 | NUR ---
PT WITH PT. PT WALKED ON THE HALLWAY WITH WALKER.
--- NOTE | 2018-11-08 12:55 | NUR ---
NOTIFIED DR. DUENAS REGARDING PT LOW BP, ELEVATED HR AND HOLD ON ENALAPRIL. NO NEW ORDERS RECEIVED.
--- NOTE | 2018-11-08 16:45 | NUR ---
DR. DUENAS AT BEDSIDE. INFORMED DR ABOUT PT LOW BP, ELEVATED HR AND FEVER. NEW ORDER FOR TELE AND NS BOLUS.
[2018-11-08] MEDS ORDERED: SODIUM CHLORIDE 0.9% 1000ML 1,000 ML IV ONE (17:00)
--- NOTE | 2018-11-08 17:30 | NUR ---
PER DR. DUENAS GIVE 1000 ML BOLUS. AFTER BOLUS, IF BP WITH IN NORMAL RANGE SBP 120 STOP IT IF NOT GIVE ANOTHER 1000 ML.
--- NOTE | 2018-11-08 17:40 | NUR ---
PT AFIB WITH RVR PER TELE. NOTIFIED DR. DUENAS. NEW ORDER RECEIVED.
[2018-11-08] MEDS ORDERED: DIGOXIN INJ 0.25 MG/ML 2 ML AMP ONE (17:59)
[2018-11-08] MEDS ORDERED: DIGOXIN INJ 0.25 MG/ML 2 ML AMP IV NR (18:00)
[2018-11-08] MEDS ORDERED: SODIUM CHLORIDE 0.9% 1000ML 1,000 ML IV SCH ×2 (18:00→19:00)
--- NOTE | 2018-11-08 19:00 | NUR ---
BEDSIDE SHIFT REPORT GIVEN TO THE CORPORATE SERVICES MANAGER RN. PT FAMILY AT BEDSIDE. PT AAOX4. PT DENIED FURTHER NEEDS.
--- NOTE | 2018-11-08 20:56 | NUR ---
asked pt what allergy to metoprolol was and pt stated "sarbjit never taken that before", pt called and stated "yeah he says sarbjit never taken that and he knows all my medicines", informed
--- NOTE | 2018-11-08 21:10 | NUR ---
pt in afib with heart rate 120-130s, Dr. Estes called and informed, order to send pt to ICU to be started on amiodarone drip
[2018-11-08] MEDS: PRAVASTATIN 20 MG TAB PO SCH (21:20)
[2018-11-08] MEDS: VANCOMYCIN 1GM/NS 250 ML 250 ML IV SCH (21:20)
--- NOTE | 2018-11-08 21:35 | NUR ---
report given to LYNN Solis in ICU
--- NOTE | 2018-11-08 21:55 | NUR ---
pt transferred to room 196 in ICU, AAOx3, no c/o pain/discomfort, resp even and unlabored
[2018-11-08] MEDS ORDERED: AMIODARONE HCL 150 MG/100 ML BAG IV ONE (22:00)
[2018-11-08] MEDS ORDERED: AMIODARONE HCL 100 ML IV ONE (22:03)
[2018-11-08] MEDS ORDERED: AMIODARONE 900MG 500 ML IV ONE (22:03)
[2018-11-08] MEDS: AMIODARONE HCL 900 MG in DEXTROSE 5% 500ML 500 ML IV SCH (22:20)
--- NOTE | 2018-11-08 22:30 | NUR ---
Patient had fever 101.8. Medicated Tylenol 650mg p/o as order. Assisted to apply ice pack, patient tolerated well. Will continue to monitor.
--- NOTE | 2018-11-08 22:59 | NUR ---
Report received from LYNN Heart. Patient admitted in unit @2150 by wheelchair. Patient received alert/oriented x3. Denied pain and no SOB. Respiratory even and unlabored. Patient had redness on her lower abdominal area. No skin breakdown noted. Bed in lower position,locked. Call lewis within reach. Patient instructed to call for help as needed,verbalized and understand. Will continue to monitor.
[2018-11-08] MEDS ORDERED: FLUCONAZOLE 200 MG/100 ML 100 ML IV ONE (23:31)
[2018-11-08] MEDS: FLUCONAZOLE 100 MG/NS 50 ML 50 ML IV SCH (23:43)
[2018-11-09] VITALS (25 sets, daily range): BP systolic 80–146; BP diastolic 51–118
[2018-11-09] MEDS ORDERED: DIGOXIN INJ 0.25 MG/ML 2 ML AMP IV NR
[2018-11-09] MEDS: PIPER-TAZ 3.375 GM 50 ML IV SCH ×5 (00:21→23:59)
[2018-11-09] MEDS: HYDROCODONE/APAP 5MG-325MG TAB PO PRN ×2 (04:30→12:05)
[2018-11-09] MEDS: SODIUM CHLORIDE 0.9% 1000ML 1,000 ML IV SCH ×2 (04:32→11:48)
--- NOTE | 2018-11-09 07:07 | NUR ---
Report given to LYNN Bowie,walking round done
[2018-11-09] MEDS: DULOXETINE HCL 20 MG DELAYED RELEASE PO SCH (08:18)
[2018-11-09] MEDS: DOCUSATE SODIUM 100 MG CAP PO SCH ×2 (08:18→16:04)
[2018-11-09] MEDS: NON-FORMULARY MEDICATION (Mirabegron (Myrbetriq) 50 MG) PO SCH (08:18)
[2018-11-09] MEDS: FAMOTIDINE 20 MG TAB PO SCH ×2 (08:18→15:56)
[2018-11-09] MEDS: SITAGLIPTIN 100 MG TAB PO SCH (08:19)
[2018-11-09] MEDS: FUROSEMIDE 20 MG TAB PO SCH (08:19)
[2018-11-09] MEDS: CYCLOBENZAPRINE HCL 10 MG TAB PO SCH ×3 (08:19→20:53)
[2018-11-09] MEDS: BALSAM PERU/CASTOR OIL 60 GM OINT...G. TP SCH (08:20)
[2018-11-09] MEDS: GABAPENTIN 400 MG CAP PO SCH ×2 (08:20→16:05)
[2018-11-09] MEDS: NYSTATIN 15 GM POWDER UD BTL TOP SCH (08:20)
[2018-11-09] MEDS: ENALAPRIL MALEATE 10 MG TAB PO SCH ×2 (08:20→16:06)
[2018-11-09] MEDS: SENNA-S TABLET PO SCH ×2 (08:21→16:05)
[2018-11-09] MEDS: AMLODIPINE BESYLATE 5 MG TAB PO SCH (08:21)
[2018-11-09] MEDS: INSULIN ASPART 70/30 100 UNITS/ML VIAL SC SCH ×2 (08:21→21:00)
[2018-11-09] MEDS: INSULIN REGULAR, HUMAN 100 UNIT/1 ML 3ML VIAL SQ SCH ×4 (08:36→21:01)
[2018-11-09] MEDS: PRAMIPEXOLE DIHYDROCHLORIDE 0.25 MG TAB PO SCH (08:36)
--- NOTE | 2018-11-09 09:28 | NUR ---
IM- progress note O/N: A.fib with RVR ROS: no f/c/s/N/V/D/MILLER/vision changes/cp/so v/s: revd PE: tired appearing anicteric ns1s2 mod bs soft; lower abdomen with dressing; mild right abdominal wall firmer than left. skin dry no e/t a&ox3; [place] labs/meds; revd A/P: Incarcerated Incisional hernia- had repaired Abdominal seroma- due to surgery Morbid obesity - 1/2 portion sizes; BMI 45.9 Uncontrolled DM2- Hba1c 9.4; LDL 64 prop: scd Dispo: 11/08 cont care; 2 antibiotics for coverage. 11/09 was hypotensive, EKG showed A.fib with RVR, given dig, sent to ICU on amio; bolused fluids; continue antibiotics; fever resolving? cct>35mins. Ignacio Peña MD, PhD.
[2018-11-09] MEDS: DIGOXIN 0.25 MG TAB PO SCH (11:53)
--- NOTE | 2018-11-09 12:47 | Consultation ---
DATE OF CONSULTATION: Cardiology Consultation REQUESTING PHYSICIAN: Ignacio Peña MD. REASON FOR CONSULTATION: Atrial fibrillation with RVR. HISTORY OF PRESENT ILLNESS: Mrs. Johnson is a 58-year-old female, who is well known to our practice and has a pertinent past medical history of diabetes, hypertension, venous insufficiency, hyperlipidemia, and has depression, who states that she came back to the ER after recently undergoing repair of incarcerated incisional hernia with Dr. Stone about a week and a half ago. However, she continued to experience abdominal pain and also swelling around her incision and drain site. However, while seeking care yesterday, she went into a new onset of atrial fibrillation and for that reason, she was transferred to ICU. At this time and even at the point of onset of atrial fibrillation the patient has remained asymptomatic. She denies any palpitations, chest pain, dizziness, syncope, abdominal discomfort, nausea, vomiting, or dysuria. PAST MEDICAL HISTORY: Diabetes, hypertension, peripheral neuropathy, hyperlipidemia, depression, venous insufficiency. REVIEW OF SYSTEMS: Negative except as mentioned above. PAST SURGICAL HISTORY: , recent hernia repair, cholecystectomy. ALLERGIES: PER ELECTRONIC CHART. FAMILY HISTORY: Noncontributory. SOCIAL HISTORY: Does not smoke or use illicit drugs. However, endorses occasional alcohol intake. PHYSICAL EXAMINATION: VITAL SIGNS: Temperature 98.0, pulse 116, respiratory rate 18, blood pressure 122/59, oxygen saturation 96% on 2 L nasal cannula. GENERAL: Alert and oriented x3. Resting comfortably in bed. Does not appear to be in any acute distress. NECK: Supple. No JVD noted. CARDIOVASCULAR: Irregular rate and rhythm. Tachycardic. No gallops, no murmurs. LUNGS: Clear to auscultation throughout. No wheezing. No rhonchi. ABDOMEN: Soft, nontender. Normoactive bowel sounds. Right lower quadrant with Steri-Strips and slight erythema noted. EXTREMITIES: Lower extremities 2+ nonpitting edema. CARDIOVASCULAR MEDICATIONS: 1. Furosemide 20 mg p.o. daily. 2. Amiodarone IV titrate. 3. Enalapril 20 mg p.o. b.i.d. 4. Amlodipine 5 mg p.o. daily. LABORATORY DATA: No new labs today. TELEMETRY: Atrial fibrillation with rapid ventricular response. IMPRESSION: 1. Atrial fibrillation with rapid ventricular response. 2. Hypertension. 3. Recent hernia repair with slight complication and fluid buildup. 4. Venous insufficiency. PLAN: Continue the above-listed cardiac medications. Medications will be adjusted for better rate control. Echocardiogram ordered, awaiting completion and also review. Recommendations will follow. Maintain on telemetry at all times. We will continue to follow this patient very closely. Thank you for this consultation. Dictated by Liliya Garcia NP MD PRINCE CatalanV/WOODY /[id number]
[2018-11-09] MEDS: CARVEDILOL 12.5 MG TAB PO SCH (16:04)
[2018-11-09] MEDS: APIXABAN 5 MG TABLET PO SCH (16:06)
[2018-11-09] MEDS: ACETAMINOPHEN 325 MG TAB PO PRN (19:36)
[2018-11-09] MEDS ORDERED: AMIODARONE 900MG 500 ML IV ONE (20:40)
[2018-11-09] MEDS: PRAVASTATIN 20 MG TAB PO SCH (20:53)
[2018-11-09] MEDS: VANCOMYCIN 1GM/NS 250 ML 250 ML IV SCH (20:53)
[2018-11-09] MEDS: AMIODARONE HCL 900 MG in DEXTROSE 5% 500ML 500 ML IV SCH (20:54)
[2018-11-09] MEDS: FLUCONAZOLE 100 MG/NS 50 ML 50 ML IV SCH (23:01)
[2018-11-10] VITALS (23 sets, daily range): BP systolic 82–143; BP diastolic 45–88
[2018-11-10] MEDS: HYDROCODONE/APAP 5MG-325MG TAB PO PRN ×2 (00:18→15:13)
[2018-11-10] MEDS: ACETAMINOPHEN 325 MG TAB PO PRN (02:50)
[2018-11-10] MEDS: SODIUM CHLORIDE 0.9% 1000ML 1,000 ML IV SCH ×3 (03:12→19:19)
[2018-11-10 05:15] LABS: BASOPHILS % 0.2 % (0.0-1.0); EOSINOPHILS # (AUTO) 0.1 (0.0-0.4); EOSINOPHILS % 0.7 % (0.0-6.0); LYMPHOCYTES # (AUTO) 1.2 (1.0-3.2); LYMPHOCYTES % 13.9 % (18.0-39.1); MEAN CORPUSCULAR HGB CONC 32.4 g/dL (31-35); MEAN CORPUSCULAR VOLUME 86.5 fL (81-99); NEUTROPHILS # (AUTO) 6.2 (2.1-6.9); NEUTROPHILS % 72.8 % (38.7-80.0); PLATELET COUNT 249 x10e3/uL (140-360); RED BLOOD COUNT 3.93 x10e6/uL (3.6-5.1); RED CELL DISTRIBUTION WIDTH 12.6 % (11.7-14.4)
--- NOTE | 2018-11-10 05:32 | NUR ---
IM- progress note O/N: A.fib with RVR ROS: no f/c/s/N/V/D/MILLER/vision changes/cp/so v/s: revd PE: tired appearing anicteric ns1s2 mod bs soft; lower abdomen with dressing; mild right abdominal wall firmer than left. skin dry no e/t a&ox3; [facility] labs/meds; revd A/P: Incarcerated Incisional hernia- had repaired Abdominal seroma- due to surgery Morbid obesity - 1/2 portion sizes; BMI 45.9 Uncontrolled DM2- Hba1c 9.4; LDL 64 prop: scd Dispo: 11/08 cont care; 2 antibiotics for coverage. 11/09 was hypotensive, EKG showed A.fib with RVR, given dig, sent to ICU on amio; bolused fluids; continue antibiotics; fever resolving? cct>35mins./ 11/10 cont tx of A.fib/RVR, cont antimicrobials; cct>35mins. Ignacio Peña MD, PhD.
[2018-11-10 05:33] LABS: ANION GAP 13.1 mmol/L (8-16); BLOOD UREA NITROGEN 5 mg/dL (7-26); BUN/CREATININE RATIO 7 (6-25); CALCIUM 8.4 mg/dL (8.4-10.2); CARBON DIOXIDE 31 mmol/L (22-29); CHLORIDE 97 mmol/L (98-107); EST GLOMERULAR FILTRATION RATE > 60 ML/MIN (60-); GLUCOSE 109 mg/dL (74-118); POTASSIUM 4.1 mmol/L (3.5-5.1); SODIUM 137 mmol/L (136-145)
[2018-11-10] MEDS: PIPER-TAZ 3.375 GM 50 ML IV SCH ×3 (05:52→17:12)
[2018-11-10] MEDS: LIDOCAINE 5% PATCH TP SCH ×2 (06:10→07:16)
--- NOTE | 2018-11-10 06:38 | NUR ---
Dr Stone here for rounds, orders received to consult IR for drain insertion to abdominal wound
--- NOTE | 2018-11-10 07:02 | NUR ---
Report given to oncoming RN Azeb,walking round done.
[2018-11-10] MEDS: INSULIN REGULAR, HUMAN 100 UNIT/1 ML 3ML VIAL SQ SCH ×4 (07:22→20:21)
[2018-11-10] MEDS: FAMOTIDINE 20 MG TAB PO SCH ×2 (07:22→16:35)
[2018-11-10] MEDS: DOCUSATE SODIUM 100 MG CAP PO SCH ×2 (07:23→16:35)
[2018-11-10] MEDS: CYCLOBENZAPRINE HCL 10 MG TAB PO SCH ×3 (07:24→20:10)
[2018-11-10] MEDS: APIXABAN 5 MG TABLET PO SCH (07:24)
[2018-11-10] MEDS: CARVEDILOL 12.5 MG TAB PO SCH ×2 (07:24→16:40)
[2018-11-10] MEDS: DULOXETINE HCL 20 MG DELAYED RELEASE PO SCH (07:24)
[2018-11-10] MEDS: SENNA-S TABLET PO SCH ×2 (07:25→16:40)
[2018-11-10] MEDS: FUROSEMIDE 20 MG TAB PO SCH (07:25)
[2018-11-10] MEDS: DIGOXIN 0.25 MG TAB PO SCH (07:25)
[2018-11-10] MEDS: PRAMIPEXOLE DIHYDROCHLORIDE 0.25 MG TAB PO SCH (07:25)
[2018-11-10] MEDS: GABAPENTIN 400 MG CAP PO SCH ×2 (07:25→16:40)
[2018-11-10] MEDS: SITAGLIPTIN 100 MG TAB PO SCH (07:25)
[2018-11-10] MEDS: AMLODIPINE BESYLATE 5 MG TAB PO SCH (07:25)
[2018-11-10] MEDS: ENALAPRIL MALEATE 10 MG TAB PO SCH ×2 (07:26→16:40)
[2018-11-10] MEDS: INSULIN ASPART 70/30 100 UNITS/ML VIAL SC SCH ×2 (08:50→20:21)
[2018-11-10] MEDS: BALSAM PERU/CASTOR OIL 60 GM OINT...G. TP SCH (08:52)
[2018-11-10] MEDS: NON-FORMULARY MEDICATION (Mirabegron (Myrbetriq) 50 MG) PO SCH (08:52)
[2018-11-10] MEDS: NYSTATIN 15 GM POWDER UD BTL TOP SCH (08:52)
--- NOTE | 2018-11-10 09:11 | NUR ---
Pt transferred from [facility] 2 to ICU for higher level of care. Will need new PT orders to resume skilled PT services. Thank you. Addendum: 11/10/18 at 0912 by TACO GONZALEZ WAREHOUSE FORKLIFT OPERATOR Amended: Links added.
--- NOTE | 2018-11-10 12:06 | NUR ---
EDUCATED ABOUT IMM, SIGNED, FILED IN CHART, WITH COPY LEFT WITH FAMILY AT BEDSIDE.
[2018-11-10] MEDS: AMIODARONE HCL 200 MG TAB PO SCH (15:13)
--- NOTE | 2018-11-10 18:33 | Progress Note ---
DATE: Cardiology Progress Note SUBJECTIVE: The patient mildly confused. Denies chest pain. OBJECTIVE: VITAL SIGNS: Temperature is 98.7, heart rate is 94, respirations are 23, blood pressure is 92/45, and ox saturation 96% on 2 L nasal cannula. GENERAL: She is a chronically ill-appearing woman, lying comfortably in bed, in no apparent distress. CARDIOVASCULAR: Irregularly irregular, normal rate. LUNGS: Clear. ABDOMEN: Wound is dressed with bloody drainage. CARDIOVASCULAR MEDICATIONS: Reviewed. TELEMETRY: Telemetry monitoring revealed atrial fibrillation. IMPRESSION: 1. Atrial fibrillation. 2. Hypertension. 3. Venous insufficiency. 4. Hernia repair. RECOMMENDATIONS: We will continue to hold anticoagulation, given significant bleeding from her wound. Continue all other current cardiovascular medications. Maintain on telemetry. We will continue to follow along closely with you. DO CHEL Avila/WOODY /[id number]
[2018-11-10] MEDS: VANCOMYCIN 1GM/NS 250 ML 250 ML IV SCH (20:10)
[2018-11-10] MEDS: PRAVASTATIN 20 MG TAB PO SCH (20:10)
[2018-11-10] MEDS: FLUCONAZOLE 100 MG/NS 50 ML 50 ML IV SCH (23:16)
[2018-11-11] VITALS (12 sets, daily range): BP systolic 93–153; BP diastolic 54–95
[2018-11-11] MEDS: PIPER-TAZ 3.375 GM 50 ML IV SCH ×4 (00:14→18:01)
[2018-11-11] MEDS: ACETAMINOPHEN 325 MG TAB PO PRN (05:58)
[2018-11-11] MEDS: SODIUM CHLORIDE 0.9% 1000ML 1,000 ML IV SCH ×2 (06:32→18:01)
--- NOTE | 2018-11-11 06:45 | NUR ---
IM- progress note O/N: A.fib with RVR ROS: no f/c/s/N/V/D/MILLER/vision changes/cp/so v/s: revd PE: tired appearing anicteric ns1s2 mod bs soft; lower abdomen with dressing; mild right abdominal wall firmer than left. skin dry no e/t a&ox3; [facility] labs/meds; revd A/P: Incarcerated Incisional hernia- had repaired Abdominal seroma- due to surgery Morbid obesity - 1/2 portion sizes; BMI 45.9 Uncontrolled DM2- Hba1c 9.4; LDL 64 prop: scd Dispo: 11/08 cont care; 2 antibiotics for coverage. 11/09 was hypotensive, EKG showed A.fib with RVR, given dig, sent to ICU on amio; bolused fluids; continue antibiotics; fever resolving? cct>35mins./ 11/10 cont tx of A.fib/RVR, cont antimicrobials; cct>35mins. 11/11 hR improving Ignacio Peña MD, PhD.
[2018-11-11] MEDS: INSULIN REGULAR, HUMAN 100 UNIT/1 ML 3ML VIAL SQ SCH ×4 (07:30→21:15)
[2018-11-11] MEDS: FAMOTIDINE 20 MG TAB PO SCH ×2 (09:00→17:30)
[2018-11-11] MEDS: DIGOXIN 0.25 MG TAB PO SCH (09:00)
[2018-11-11] MEDS: LIDOCAINE 5% PATCH TP SCH (09:00)
[2018-11-11] MEDS: SITAGLIPTIN 100 MG TAB PO SCH (09:00)
[2018-11-11] MEDS: AMIODARONE HCL 200 MG TAB PO SCH ×2 (09:00→17:30)
[2018-11-11] MEDS: DOCUSATE SODIUM 100 MG CAP PO SCH ×2 (09:00→17:30)
[2018-11-11] MEDS: CARVEDILOL 12.5 MG TAB PO SCH ×2 (09:00→17:31)
[2018-11-11] MEDS: CYCLOBENZAPRINE HCL 10 MG TAB PO SCH ×3 (09:00→21:37)
[2018-11-11] MEDS: NON-FORMULARY MEDICATION (Mirabegron (Myrbetriq) 50 MG) PO SCH (09:00)
[2018-11-11] MEDS: GABAPENTIN 400 MG CAP PO SCH ×2 (09:00→17:31)
[2018-11-11] MEDS: FUROSEMIDE 20 MG TAB PO SCH (09:00)
[2018-11-11] MEDS: PRAMIPEXOLE DIHYDROCHLORIDE 0.25 MG TAB PO SCH (09:00)
[2018-11-11] MEDS: DULOXETINE HCL 20 MG DELAYED RELEASE PO SCH (09:00)
[2018-11-11] MEDS: INSULIN ASPART 70/30 100 UNITS/ML VIAL SC SCH ×2 (09:00→21:15)
[2018-11-11] MEDS: SENNA-S TABLET PO SCH ×2 (09:00→17:31)
[2018-11-11] MEDS: ENALAPRIL MALEATE 10 MG TAB PO SCH ×2 (09:00→17:31)
[2018-11-11] MEDS: AMLODIPINE BESYLATE 5 MG TAB PO SCH (09:00)
--- NOTE | 2018-11-11 11:39 | Progress Note ---
DATE: Cardiology Progress Note SUBJECTIVE: The patient feeling better. No chest pain. OBJECTIVE: VITAL SIGNS: Heart rate is 92, respirations 16, blood pressure is 124/95, and oxygen saturation 96% on 2 liters nasal cannula. GENERAL: She is obese woman, seated at bedside, no apparent distress. CARDIOVASCULAR: She is irregularly irregular. Normal rate. LUNGS: Diminished breath sounds in the bases. ABDOMEN: Obese and soft. There is a dressing over anterior abdomen. EXTREMITIES: 1+ edema. LABORATORY DATA: Reviewed. Hemoglobin 11. No chemistries. MEDICATIONS: Cardiovascular medications reviewed, include: 1. Amiodarone 200 mg b.i.d. 2. Digoxin 0.25 mg daily. 3. Lasix 20 mg p.o. daily. 4. Amlodipine 5 mg daily. 5. Carvedilol 25 mg b.i.d. 6. Enalapril 20 mg p.o. b.i.d. TELEMETRY MONITORING: Revealed atrial fibrillation. IMPRESSION: 1. Atrial fibrillation. 2. Hypertension. 3. Venous insufficiency. 4. Hernia repair with bleeding. RECOMMENDATIONS: Continue anticoagulation and surgical plans per General Surgery. Continue to hold anticoagulation given significant bleeding from her wound. Continue all her current cardiovascular medications. Maintain the patient on telemetry. We will continue to follow closely along with you. DO CHEL Avila/MODL /[id number]
[2018-11-11] MEDS: BALSAM PERU/CASTOR OIL 60 GM OINT...G. TP SCH (12:07)
[2018-11-11] MEDS: NYSTATIN 15 GM POWDER UD BTL TOP SCH (12:08)
--- NOTE | 2018-11-11 15:21 | NUR ---
Nutrition LOS Note RD Recommendation(s) for Physician / Nutrition Prescription: continue with diet as prescribed Plan of Care: Patient has been screened and assessed for nutrition risk. At this time, the patient does not pose any nutrition risk. No further nutrition intervention is warranted at this time. Will re-evaluate if consulted by medical staff. Nutrition reason for involvement: LOS Primary Dx: Incarcerated Incisional hernia- had repaired, abdominal seroma- due to surgery PMH: diabetes, hypertension, peripheral neuropathy, hyperlipidemia, and depression Ht: 68in Wt: 315.02lb BMI: 47.9kg/m2 IBW: 140lb +/- 10% RD Assessment: (11/11) 58 yo F, who was admitted for postop abdominal seroma. Visited pt in the room. Pt reported good appetite No complains of nausea or vomiting. Pt denied any chewing or swallowing difficulty. Pt was given laxatives for constipation. Current diet is appropriate and adequate. No nutrition related question at this time. Malnutrition Evaluation (11/11/18) The patient does not meet criteria for a specified degree of malnutrition at this time. Will re-evaluate at follow-up as appropriate. Diet Education Needs Assessment: Diet education not indicated. Nutrition Care Level: Low Signed by Zohreh Perez, MS, RD, LD
--- NOTE | 2018-11-11 17:30 | NUR ---
RECEIVED PT FROM ICU. AAOX4. FAMILY AT BEDSIDE. FALL PRECAUTIONS IMPLEMENTED. EDUCATED PT ABOUT FALL PRECAUTIONS. CALL LIGHT WITH IN EASY REACH. INSTRUCTED PT TO USE CALL LIGHT FOR ALL THE NEEDS. BED IS AT THE LOWEST POSITION AND LOCKED. PT DENIES NEEDS AT THIS TIME.
--- NOTE | 2018-11-11 19:00 | NUR ---
BEDSIDE SHIFT REPORT GIVEN TO THE CERTIFIED SCRUM MASTER RN. PT DENIED FURTHER NEEDS.
--- NOTE | 2018-11-11 19:07 | NUR ---
Bedside shift report received from previous nurse. Call light within reach. patient in bed
--- NOTE | 2018-11-11 19:10 | NUR ---
Bedside shift report received from previous nurse. Call light within reach. patient in bed
[2018-11-11] MEDS: VANCOMYCIN 1GM/NS 250 ML 250 ML IV SCH (20:24)
[2018-11-11] MEDS: PRAVASTATIN 20 MG TAB PO SCH (21:14)
[2018-11-11] MEDS: FLUCONAZOLE 100 MG/NS 50 ML 50 ML IV SCH (23:04)
[2018-11-12] VITALS (10 sets, daily range): BP systolic 94–152; BP diastolic 47–79
[2018-11-12] MEDS: PIPER-TAZ 3.375 GM 50 ML IV SCH ×4 (00:27→18:08)
[2018-11-12] MEDS: HYDROCODONE/APAP 5MG-325MG TAB PO PRN ×2 (04:39→21:15)
--- NOTE | 2018-11-12 06:01 | NUR ---
IM- progress note O/N: A.fib with RVR ROS: no f/c/s/N/V/D/MILLER/vision changes/cp/so v/s: revd PE: tired appearing anicteric ns1s2 mod bs soft; lower abdomen with dressing; mild right abdominal wall firmer than left. skin dry no e/t a&ox3; [facility] labs/meds; revd A/P: Incarcerated Incisional hernia- had repaired Abdominal seroma- due to surgery Morbid obesity - 1/2 portion sizes; BMI 45.9 Uncontrolled DM2- Hba1c 9.4; LDL 64 prop: scd Dispo: 11/08 cont care; 2 antibiotics for coverage. 11/09 was hypotensive, EKG showed A.fib with RVR, given dig, sent to ICU on amio; bolused fluids; continue antibiotics; fever resolving? cct>35mins./ 11/10 cont tx of A.fib/RVR, cont antimicrobials; cct>35mins. 11/11 hR improving 11/12 Zaria krusei; may not need drainage of seroma? Ignacoi Peña MD, PhD.
[2018-11-12 06:29] LABS: BASOPHILS % 0.7 % (0.0-1.0); EOSINOPHILS # (AUTO) 0.1 (0.0-0.4); EOSINOPHILS % 3.3 % (0.0-6.0); HEMATOCRIT 33.7 % (34.2-44.1); HEMOGLOBIN 10.7 g/dL (12.0-16.0); LYMPHOCYTES # (AUTO) 1.3 (1.0-3.2); LYMPHOCYTES % 29.3 % (18.0-39.1); MEAN CORPUSCULAR HGB CONC 31.8 g/dL (31-35); MEAN CORPUSCULAR VOLUME 88.2 fL (81-99); MONOCYTES # (AUTO) 0.6 (0.2-0.8); MONOCYTES % 13.1 % (4.4-11.3); NEUTROPHILS # (AUTO) 2.2 (2.1-6.9); PLATELET COUNT 299 x10e3/uL (140-360); RED BLOOD COUNT 3.82 x10e6/uL (3.6-5.1); RED CELL DISTRIBUTION WIDTH 12.6 % (11.7-14.4)
[2018-11-12 06:33] LABS: BLOOD UREA NITROGEN 11 mg/dL (7-26); BUN/CREATININE RATIO 15 (6-25); CALCIUM 8.3 mg/dL (8.4-10.2); CARBON DIOXIDE 30 mmol/L (22-29); CHLORIDE 98 mmol/L (98-107); CREATININE, SERUM 0.71 mg/dL (0.57-1.11); EST GLOMERULAR FILTRATION RATE > 60 ML/MIN (60-); GLUCOSE 94 mg/dL (74-118); SODIUM 136 mmol/L (136-145)
--- NOTE | 2018-11-12 07:29 | NUR ---
GAVE BEDSHIFT REPORT TO ONCOMING NURSE. PATIENT ASLEEP IN BED. CALL LIGHT WITHIN REACH.
[2018-11-12] MEDS: INSULIN REGULAR, HUMAN 100 UNIT/1 ML 3ML VIAL SQ SCH ×4 (07:30→21:15)
[2018-11-12] MEDS: SENNA-S TABLET PO SCH ×2 (09:00→17:00)
[2018-11-12] MEDS: INSULIN ASPART 70/30 100 UNITS/ML VIAL SC SCH ×2 (09:00→21:15)
[2018-11-12] MEDS: CARVEDILOL 12.5 MG TAB PO SCH ×2 (09:00→17:00)
[2018-11-12] MEDS: NON-FORMULARY MEDICATION (Mirabegron (Myrbetriq) 50 MG) PO SCH (09:00)
[2018-11-12] MEDS: DOCUSATE SODIUM 100 MG CAP PO SCH ×2 (09:00→17:00)
[2018-11-12] MEDS: NYSTATIN 15 GM POWDER UD BTL TOP SCH (09:00)
[2018-11-12] MEDS: ENALAPRIL MALEATE 10 MG TAB PO SCH ×2 (09:00→17:00)
[2018-11-12] MEDS: AMLODIPINE BESYLATE 5 MG TAB PO SCH (09:00)
[2018-11-12] MEDS: SITAGLIPTIN 100 MG TAB PO SCH (09:55)
[2018-11-12] MEDS: FUROSEMIDE 20 MG TAB PO SCH (09:55)
[2018-11-12] MEDS: DIGOXIN 0.25 MG TAB PO SCH (09:55)
[2018-11-12] MEDS: CYCLOBENZAPRINE HCL 10 MG TAB PO SCH ×3 (09:55→21:15)
[2018-11-12] MEDS: GABAPENTIN 400 MG CAP PO SCH ×2 (09:55→18:08)
[2018-11-12] MEDS: DULOXETINE HCL 20 MG DELAYED RELEASE PO SCH (09:55)
[2018-11-12] MEDS: PRAMIPEXOLE DIHYDROCHLORIDE 0.25 MG TAB PO SCH (09:55)
[2018-11-12] MEDS: LIDOCAINE 5% PATCH TP SCH (09:56)
[2018-11-12] MEDS: FAMOTIDINE 20 MG TAB PO SCH ×2 (09:57→18:08)
[2018-11-12] MEDS: AMIODARONE HCL 200 MG TAB PO SCH ×2 (09:57→18:08)
[2018-11-12] MEDS: SODIUM CHLORIDE 0.9% 1000ML 1,000 ML IV SCH ×2 (10:12→13:12)
[2018-11-12] MEDS: BALSAM PERU/CASTOR OIL 60 GM OINT...G. TP SCH (10:12)
--- NOTE | 2018-11-12 11:07 | NUR ---
EDUCATED ABOUT IMM, SIGNED, FILED IN CHART, WITH COPY LEFT WITH FAMILY AT BEDSIDE.
--- NOTE | 2018-11-12 14:22 | Progress Note ---
DATE: Cardiology Progress Note SUBJECTIVE: The patient is sleeping comfortably. No complaints. OBJECTIVE: VITAL SIGNS: Temperature 98.1, heart rate is 86, respirations are 19, blood pressure is 107/63, and oxygen saturation 93% on room air. GENERAL: Well appearing, in no apparent distress. CARDIOVASCULAR: Irregularly irregular. LUNGS: Diminished breath sounds at the bases. ABDOMEN: Soft, nontender, and nondistended. EXTREMITIES: No edema. LABORATORY DATA: Reviewed. MEDICATIONS: Cardiovascular medications reviewed. TELEMETRY: Monitoring revealed atrial fibrillation. IMPRESSION: 1. Abdominal wound. 2. History of hernia repair. 3. Hypertension. 4. Venous insufficiency. 5. Atrial fibrillation. RECOMMENDATIONS: Resume anticoagulation when okay with General Surgery. Continue current cardiovascular medications for rate control and antihypertensive effect. Maintain on telemetry. We will continue to follow along with you. DO CHEL Avila/WOODY /[id number]
[2018-11-12] MEDS ORDERED: ONDANSETRON HCL 4 MG ORAL DISINTEGRATING TAB PO PRN (15:45)
[2018-11-12] MEDS: VANCOMYCIN 1GM/NS 250 ML 250 ML IV SCH (21:15)
--- NOTE | 2018-11-12 21:15 | NUR ---
PATIENT RESTING IN ROOM, NO DISTRESS NOTED. PATIENT VOICED PAIN IN SACRUM AREA AND WAS MEDICATED ORDERED. PATIENT ALSO REFUSED MEDICATION FOR SACRUM AND DRESSING WELL, AND VOICED THAT IT WAS IRRITATING HER. BOTH SIDE RAILS ARE UP, BED IS LOW, CALL LIGHT WITHIN REACH, WILL CONTINUE TO MONITOR.
[2018-11-12] MEDS: PRAVASTATIN 20 MG TAB PO SCH (21:45)
[2018-11-12] MEDS: FLUCONAZOLE 100 MG/NS 50 ML 50 ML IV SCH (23:24)
[2018-11-13] VITALS: BP 115/57
[2018-11-13] MEDS: PIPER-TAZ 3.375 GM 50 ML IV SCH ×3 (00:26→12:54)
[2018-11-13] MEDS: SODIUM CHLORIDE 0.9% 1000ML 1,000 ML IV SCH ×2 (00:26→08:44)
[2018-11-13 03:50] VITALS: BP 131/65
--- NOTE | 2018-11-13 07:16 | NUR ---
D/C summar Principal dx: Incarcerated Incisional hernia- had repaired Abdominal seroma- due to surgery A.fib with RVR Zaria krusei infection of wound MSSA infection of wound Secondary Dx: Morbid obesity - 1/2 portion sizes; BMI 45.9 Uncontrolled DM2- Hba1c 9.4; LDL 64 prop: scd Dispo: 11/08 cont care; 2 antibiotics for coverage. 11/09 was hypotensive, EKG showed A.fib with RVR, given dig, sent to ICU on amio; bolused fluids; continue antibiotics; fever resolving? cct>35mins./ 11/10 cont tx of A.fib/RVR, cont antimicrobials; cct>35mins. 11/11 hR improving 11/12 Zaria krusei; may not need drainage of seroma? 11/13 MSSA infection of wound also. d/c home on cipro f/u pcp 1 week stable d/c>35mins Ignacio Peña MD, PhD.
[2018-11-13] MEDS: INSULIN REGULAR, HUMAN 100 UNIT/1 ML 3ML VIAL SQ SCH ×2 (07:30→12:55)
[2018-11-13] MEDS: INSULIN ASPART 70/30 100 UNITS/ML VIAL SC SCH (08:17)
[2018-11-13] MEDS: SENNA-S TABLET PO SCH (08:18)
[2018-11-13] MEDS: DOCUSATE SODIUM 100 MG CAP PO SCH (08:18)
[2018-11-13] MEDS: NON-FORMULARY MEDICATION (Mirabegron (Myrbetriq) 50 MG) PO SCH (08:18)
[2018-11-13 08:20] VITALS: BP 104/62
[2018-11-13] MEDS: FAMOTIDINE 20 MG TAB PO SCH (08:44)
[2018-11-13] MEDS: AMIODARONE HCL 200 MG TAB PO SCH (08:45)
[2018-11-13] MEDS: FUROSEMIDE 20 MG TAB PO SCH (08:45)
[2018-11-13] MEDS: SITAGLIPTIN 100 MG TAB PO SCH (08:45)
[2018-11-13] MEDS: CYCLOBENZAPRINE HCL 10 MG TAB PO SCH (08:45)
[2018-11-13] MEDS: DULOXETINE HCL 20 MG DELAYED RELEASE PO SCH (08:45)
[2018-11-13] MEDS: DIGOXIN 0.25 MG TAB PO SCH (08:45)
[2018-11-13] MEDS: CARVEDILOL 12.5 MG TAB PO SCH (08:45)
[2018-11-13] MEDS: NYSTATIN 15 GM POWDER UD BTL TOP SCH (08:46)
[2018-11-13] MEDS: GABAPENTIN 400 MG CAP PO SCH (08:46)
[2018-11-13] MEDS: PRAMIPEXOLE DIHYDROCHLORIDE 0.25 MG TAB PO SCH (08:46)
[2018-11-13] MEDS: BALSAM PERU/CASTOR OIL 60 GM OINT...G. TP SCH (08:46)
[2018-11-13] MEDS: AMLODIPINE BESYLATE 5 MG TAB PO SCH (08:46)
[2018-11-13] MEDS: ENALAPRIL MALEATE 10 MG TAB PO SCH (08:46)
[2018-11-13] MEDS: LIDOCAINE 5% PATCH TP SCH (08:46)
[2018-11-13 08:50] VITALS: BP 164/62
[2018-11-13 12:34] VITALS: BP 125/71
--- NOTE | 2018-11-13 13:17 | Progress Note ---
DATE: Cardiology Progress Note SUBJECTIVE: The patient feeling better. Denies any chest pain, palpitations, or shortness of breath. OBJECTIVE: VITAL SIGNS: Temperature is 97.9, heart rate is 80, respirations are 20, blood pressure is 164/60, and ox saturation 96% on room air. GENERAL: Well appearing, in no apparent distress. CARDIOVASCULAR: Irregularly irregular. LUNGS: Clear to auscultation. ABDOMEN: Soft, nontender, nondistended. EXTREMITIES: No edema. CARDIOVASCULAR MEDICATIONS: Reviewed. LABORATORY DATA: Reviewed. TELEMETRY: Monitoring revealed atrial fibrillation. IMPRESSION: 1. Atrial fibrillation. 2. Abdominal wound with a history of hernia repair. 3. Hypertension. 4. Venous insufficiency. RECOMMENDATIONS: Resume anticoagulation for stroke risk reduction. If no procedures are going to be performed, continue all the current cardiovascular medications for heart rate control and blood pressure. Maintain on telemetry. We will continue to follow along with you. DO CHEL Avila/WOODY /[id number]
[2018-11-13] MEDS ORDERED: SIMVASTATIN 20 MG TAB PO SCH (21:00)
== END 2018-11-13 14:39 | disposition home or self-care (01) | DRG 862 ==
LOC: ER 17:37 → ERHOLD 20:44 → MED/SURG2 23:00 → ICU 11-08 21:50 → MED/SURG2 11-11 17:27
PROVIDERS: ADMIT Internal Medicine; ATTEND Internal Medicine
DX: T81.43XA Infection following a procedure, organ and space surgical site, initial encounter (principal); A41.9 Sepsis, unspecified organism; I10 Essential (primary) hypertension; F32.9 Major depressive disorder, single episode, unspecified; E78.5 Hyperlipidemia, unspecified; G25.81 Restless legs syndrome; W19.XXXA Unspecified fall, initial encounter; I16.0 Hypertensive urgency; I87.2 Venous insufficiency (chronic) (peripheral); I48.91 Unspecified atrial fibrillation; Z98.890 Other specified postprocedural states; E11.42 Type 2 diabetes mellitus with diabetic polyneuropathy; Z79.4 Long term (current) use of insulin; K43.2 Incisional hernia without obstruction or gangrene
CPT/HCPCS: 36415; 70450; 71045; 74177; 80048; 80053; 80061; 80202; 81001; 82550; 82553; 82948; 83036; 83605; 83735; 83880; 84439; 84443; 84484; 85025; 85610; 85651; 85730; 87040; 87071; 87086; 87186; 87205; 93005; 93306; 93880; 96365; 96372; 97139; 99284; J0692; J1160; J1450; J1815; J1817; J1885; J2270; J2405; J2543; J3370; J7030; Q9967

== ENCOUNTER → 2019-10-28 | Day surgery (SDC) | payer MEDICARE, OTHER ==
[2019-10-23 12:34] LABS: ANION GAP 18.4 mmol/L (8-16); BLOOD UREA NITROGEN 10 mg/dL (7-26); BUN/CREATININE RATIO 13 (6-25); CALCIUM 9.8 mg/dL (8.4-10.2); CARBON DIOXIDE 30 mmol/L (22-29); CHLORIDE 100 mmol/L (98-107); CREATININE, SERUM 0.77 mg/dL (0.57-1.11); EST GLOMERULAR FILTRATION RATE > 60 ML/MIN (60-); GLUCOSE 189 mg/dL (74-118); POTASSIUM 4.4 mmol/L (3.5-5.1); SODIUM 144 mmol/L (136-145)
[~2019-10-28] MED LIST changes: +BUPIVACAINE HCL 0.5% INJ 30 ML VIAL INJ ONE; +BYDUREON P2 MG/0.65 SQ; +CEFAZOLIN SOD 1 GM/NS 50ML 100 ML IV ONE; +CYMBALTA20 MG PO; +ETOMIDATE 2 MG/ML 10 ML INJ IV ONE; +EUCRISA TP; +IBUPROFEN600 MG PO; +INSULIN REGULAR, HUMAN 100 UNIT/1 ML 3ML VIAL ONE; +KETOROLAC TROMETHAMINE 30 MG/ML VIAL ONE; +LABETALOL HCL 5 MG/ML 20ML VIAL ONE; +LIDOCAINE HCL 2% LOCAL INJ 5 ML SDV VIAL INJ ONE; +LOMOTIL TABLET1 EACH PO; +METOCLOPRAMIDE HCL 10 MG/2ML VIAL ONE; +ONDANSETRON HCL INJ 2MG/ML 2ML 2 MG/ML VIAL ONE; +PROPOFOL IV EMULSION 10 MG/ML 20 ML VIAL ONE; +SEVOFLURANE INHAL SOLN 250 ML PEN BTL ONE; +ZOFRAN4 MG PO
[2019-10-28 13:30] VITALS: BP 143/62
--- NOTE | 2019-10-29 10:23 | Operative Report ---
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 POSTOPERATIVE DIAGNOSES: Right knee medial meniscus tear, right knee lateral meniscus tear, and right knee degenerative joint disease of the knee. OPERATIONS AND PROCEDURES PERFORMED: The patient underwent right knee examination under anesthesia, right knee arthroscopy, right knee partial medial meniscectomy, right knee partial lateral meniscectomy, right knee chondroplasty of the patella, the trochlea, the medial femoral condyle, the medial tibial plateau, the lateral femoral condyle and lateral tibial plateau. REINFORCING STEEL WORKER WIRE MESH: There was no operator/assistant foreman. ANESTHESIA: General endotracheal intubation anesthesia. IV FLUIDS: Per the anesthesia record. BLOOD LOSS: Less than 5 mL. COMPLICATIONS: None. BRIEF DESCRIPTION OF THE PATIENT'S OPERATIVE PROCEDURE: Ms. Johnson was taken to the operating room and placed in supine position on the operating table. Following induction of general anesthesia as well as endotracheal intubation, the patient's right lower extremity was examined under anesthesia. She was found to have a mild effusion within the knee joint, but otherwise ligamentously stable knee. The patient's lower extremity was prepped and draped in standard surgical fashion. A two-port technique was used to provide this patient's arthroscopic evaluation of the knee joint. Examination of the suprapatellar pouch, medial and lateral gutters found no evidence of loose bodies. There was, however, evidence of chondromalacia of the patellar and trochlear surfaces. The scope was advanced to the medial compartment. Examination of the medial compartment demonstrated a torn medial meniscus. There was also chondromalacia of the articulating surfaces. A combination of biting forceps and a motorized shaver were used to resect the torn portion of the meniscus. Chondroplasties of the medial femoral condyle and medial tibial plateau were performed at this time. Scope was then advanced to the intercondylar notch and the anterior cruciate ligament was identified and found to be intact. Scope was then advanced to lateral compartment and a torn lateral meniscus was encountered. There was also chondromalacia of the articulating surfaces. A combination of biting forceps and a motorized shaver were used to resect the torn portion of meniscus. Chondroplasties of the lateral femoral condyle and lateral tibial plateau are performed at this time. Scope was then placed in suprapatellar pouch and chondroplasties of the patella and trochlea were performed. The knee was then inflated with sterile normal saline. Each of the portal sites were closed using 4-0 nylon suture. The portal sites as well as the knee itself were then injected with 0.5% Marcaine with epinephrine. Sterile dressings were applied. The patient was then awakened and taken to postanesthesia care unit in stable condition. MD SAUL Santo/WOODY /[id number]
== END | disposition home or self-care (01) ==
LOC: OR 07:53
PROVIDERS: ATTEND Specialist
DX: S83.221A Peripheral tear of medial meniscus, current injury, right knee, initial encounter (principal); S83.261A Peripheral tear of lateral meniscus, current injury, right knee, initial encounter; M17.11 Unilateral primary osteoarthritis, right knee; M22.41 Chondromalacia patellae, right knee; M75.111 Incomplete rotator cuff tear or rupture of right shoulder, not specified as traumatic; E11.9 Type 2 diabetes mellitus without complications; F95.9 Tic disorder, unspecified; R05 Cough; I10 Essential (primary) hypertension; M54.5 Low back pain; E66.01 Morbid (severe) obesity due to excess calories; F32.9 Major depressive disorder, single episode, unspecified; X58.XXXA Exposure to other specified factors, initial encounter; Z88.6 Allergy status to analgesic agent; Z91.013 Allergy to seafood; Z01.810 Encounter for preprocedural cardiovascular examination; Z01.812 Encounter for preprocedural laboratory examination; Z11.59 Encounter for screening for other viral diseases; Z79.4 Long term (current) use of insulin; Z79.84 Long term (current) use of oral hypoglycemic drugs; Z68.41 Body mass index [BMI] 40.0-44.9, adult
CPT/HCPCS: 29880; 36415 ×2; 80048; 82948; 93005; J0690; J1885; J2001; J2405; J2704; J2765; J3490; U0002; J1817

== ENCOUNTER 2019-12-23 00:29 | Emergency (ER) | payer MEDICARE, OTHER ==
[~2019-12-23] VITALS: Ht 172.7 cm; Wt 142.9 kg
[~2019-12-23 00:29] MED LIST changes: -BUPIVACAINE HCL 0.5% INJ 30 ML VIAL INJ ONE; -CEFAZOLIN SOD 1 GM/NS 50ML 100 ML IV ONE; -ETOMIDATE 2 MG/ML 10 ML INJ IV ONE; -INSULIN REGULAR, HUMAN 100 UNIT/1 ML 3ML VIAL ONE; -KETOROLAC TROMETHAMINE 30 MG/ML VIAL ONE; -LABETALOL HCL 5 MG/ML 20ML VIAL ONE; -LIDOCAINE HCL 2% LOCAL INJ 5 ML SDV VIAL INJ ONE; -METOCLOPRAMIDE HCL 10 MG/2ML VIAL ONE; -ONDANSETRON HCL INJ 2MG/ML 2ML 2 MG/ML VIAL ONE; -PROPOFOL IV EMULSION 10 MG/ML 20 ML VIAL ONE; -SEVOFLURANE INHAL SOLN 250 ML PEN BTL ONE
[2019-12-23] MEDS ORDERED: LIDOCAINE 4% PATCH TP SCH (00:53)
[2019-12-23 01:12] LABS: BILIRUBIN,URINE NEGATIVE (NEGATIVE); CLARITY,URINE SL CLOUDY (CLEAR); COLOR,URINE YELLOW (YELLOW); KETONES,URINE NEGATIVE (NEGATIVE); LEUKOCYTE ESTERASE ,URINE NEGATIVE (NEGATIVE); NITRITE,URINE POSITIVE (NEGATIVE); PROTEIN,URINE DIPSTICK NEGATIVE (NEGATIVE); URINE UROBILINOGEN 0.2 mg/dL (0.2 - 1)
[2019-12-23 01:20] LABS: BACTERIA,URINE MANY /HPF; EPITHELIAL CELLS,URINE FEW /LPF; RBC,URINE 0-5 /HPF (0-5)
--- NOTE | 2019-12-23 01:48 | Emergency Department Note ---
History of Present Illnes History of Present Illness Chief Complaint: Back Pain History of Present Illness This is a 59 year old female Chief Complaint Comment 59 Y/O FEMALE PT AAOX3 PRESENTS TO THE ER C/O LOWER BACK PAIN S/P FALL ON SATURDAY; PT STATES SHE WAS AT [facility] AND HAD FULL BODY SCAN AND DX WITH FX TO LT ARM; PT STATING HER BACK HAS BEEN HURTING SO BAD SHE IS UNABLE TO MAKE IT TO THE RESTROOM AND IS INCONTINENT; PT DENIES BURNING WITH URINATION OR DIFFICULTY URINATING. Historian: Patient Arrival Mode: Car Hotel Guest Service Agent Required: No Onset (how long ago): day(s) (3) Location: Low back Quality: Dull Radiation: Reports non-radiation Severity: moderate Onset quality: gradual Duration (how long): day(s) (3) Timing of current episode: constant Chronicity: new Context: Denies recent illness, Denies recent surgery Relieving factors: none Exacerbating factors: none Associated symptoms: Reports denies other symptoms Treatments prior to arrival: none Past Medical/Family History Physician Review I have reviewed the patient's past medical and family history. Any updates have been documented here. Past Medical History Recent Fever: No Clinical Suspicion of Infectio: No New/Unexplained Change in Ment: No Past Medical History: Hypertension, Diabetes, Depression, Hyperlipedemia Other Medical History: IBS Past Surgical History: Other Surgery: x2 Other Last Tetanus: utd Review of Systems Review of Systems Constitutional: Reports no symptoms EENTM: Reports no symptoms Cardiovascular: Reports no symptoms Respiratory: Reports no symptoms Gastrointestinal: Reports no symptoms Genitourinary: Reports no symptoms Musculoskeletal: Reports as per HPI, Reports back pain Integumentary: Reports no symptoms Neurological: Reports no symptoms Psychological: Reports no symptoms Endocrine: Reports no symptoms Hematological/Lymphatic: Reports no symptoms Physical Exam Related Data Allergies: Coded Allergies: shrimp (Verified Allergy, Unknown, 10/24/18) Triage Vital Signs Vital Signs Date Time Temp Pulse Resp B/P (MAP) Pulse Ox O2 Delivery O2 Flow Rate FiO2 12/23/19 00:50 98.4 103 20 157/68 96 Room Air Vital signs reviewed: Yes Physical Exam CONSTITUTIONAL Constitutional: Present well-developed, Present well-nourished HENT HENT: Present normocephalic, Present atraumatic, Present oropharynx clear/moist, Present nose normal HENT L/R: Present left ext ear normal, Present right ext ear normal EYES Eyes: Reports PERRL, Reports conjunctivae normal NECK Neck: Present ROM normal PULMONARY Pulmonary: Present effort normal, Present breath sounds normal CARDIOVASCULAR Cardiovascular: Present regular rhythm, Present heart sounds normal, Present capillary refill normal, Present normal rate GASTROINTESTINAL Abdominal: Present soft, Present nontender, Present bowel sounds normal GENITOURINARY Genitourinary: Present exam deferred SKIN Skin: Present warm, Present dry MUSCULOSKELETAL Musculoskeletal: Present ROM normal, Present other (L arm in sling and splinted. Able to walk. no saddle anesthesia, sensation intact, strength intact, no signs of injury to back) NEUROLOGICAL Neurological: Present alert, Present oriented x 3, Present no gross motor or sensory deficits PSYCHOLOGICAL Psychological: Present mood/affect normal, Present judgement normal Results Laboratory Laboratory Laboratory Tests Test 12/23/19 01:04 Urine Color Yellow (YELLOW) Urine Clarity Sl cloudy (CLEAR) Urine pH 5.5 (5 - 7) Urine Specific [place] 1.020 (1.010-1.025) Urine Protein Negative (NEGATIVE) Urine Glucose (UA) 3+ (NEGATIVE) Urine Ketones Negative (NEGATIVE) Urine Blood Negative (NEGATIVE) Urine Nitrite Positive (NEGATIVE) Urine Bilirubin Negative (NEGATIVE) Urine Urobilinogen 0.2 mg/dL (0.2 - 1) Urine Leukocyte Esterase Negative (NEGATIVE) Urine RBC 0-5 /HPF (0-5) Urine WBC 6-10 /HPF (0-5) Urine Epithelial Cells Few /LPF (NONE) Urine Bacteria Many /HPF (NONE) Lab results reviewed: Yes Imaging Imaging results reviewed: Yes Assessment & Plan Medical Decision Making MDM 59-year-old female presents for low back pain since a fall on Saturday. She was seen at another hospital and had scans from head to pelvis. She did have a open left arm but no issues the low back. She was recently treated for urinary tract infection and has since completed treatment. She denies burning with urination. Initial differential includes osseous skeletal pain versus lumbar spinal fra cture versus pyelonephritis. Examination is largely unremarkable and patient is able to walk, intact sensation, pulses are equal. CT shows no fracture. Will Rx Lidociane patches and she will f/u w/ her PCP. Reassessment Reassessment time: 01:48 Reassessment Well appearing, NAD Assessment & Plan Final Impression: (1) Back pain Depart Disposition: HOME, SELF-CARE Last Vital Signs Date Time Temp Pulse Resp B/P (MAP) Pulse Ox O2 Delivery O2 Flow Rate FiO2 12/23/19 00:50 98.4 103 20 157/68 96 Room Air Home Meds Reported Medications Ibuprofen (IBUPROFEN) 600 Mg Tablet, 800 MG PO TID 10/21/19 Crisaborole (Eucrisa) 100 Gm Oint...g., 1 PUMP TP PRN 10/21/19 Duloxetine Hcl (CYMBALTA) 20 Mg Capcr, 20 MG PO DAILY, #30 CAP 10/21/19 Exenatide Microspheres (Bydureon Pen) 2 Mg/0.65 Ml Pen.injctr, SQ WEEKLY ON Saturday10/21/19 Ondansetron Hcl* (ZOFRAN*) 4 Mg Tablet, 4 MG PO Q8H PRN for PRN 10/21/19 Diphenoxylate Hcl/Atropine (LOMOTIL TABLET) 1 Each Tablet, 2.5 MG PO DAILY PRN for DIARRHEA, TAB 10/21/19 Amlodipine Besylate (AMLODIPINE BESYLATE) 5 Mg Tablet, 10 MG PO DAILY, #30 TAB 10/24/18 Acetaminophen With Codeine (TYLENOL WITH CODEINE #4 TABLET) 1 Each Tablet, 1 TAB PO PRN 10/24/18 Gabapentin (GABAPENTIN) 400 Mg Capsule, 800 MG PO BID, #30 CAP 10/24/18 Furosemide (FUROSEMIDE) 40 Mg Tablet, 20 MG PO Daily, #30 TAB 10/24/18 Cyclobenzaprine Hcl (CYCLOBENZAPRINE HCL) 10 Mg Tablet, 10 MG PO DAILY, TAB 10/24/18 Enalapril Maleate (VASOTEC) 10 Mg Tab, 20 MG PO DAILY, TAB 10/24/18 Glipizide (GLIPIZIDE ER) 5 Mg Tab.er.24, 10 MG PO BID 10/24/18 Pramipexole Di-Hcl (PRAMIPEXOLE DIHYDROCHLORIDE) 0.25 Mg Tablet, 0.5 MG PO HS 10/24/18 Metformin Hcl (METFORMIN HCL ER) 500 Mg Tab.er.24h, 1000 MG PO BID 10/24/18 [Insulin 70/30] No Conflict Check, 60 UNITS SQ BID 10/24/18 Insulin Regular, Human (HUMULIN R) 100 Unit/1 Ml Vial, SC TID SLIDING SCALE 10/24/18 Medications in the ED Lidocaine 1 ea DAILY TP Last administered on 12/23/19at 01:17; Admin Dose 1 EA; Start 12/23/19 at 00:53; Stop 01/22/20 at 00:52 RITA BARKLEY MD Dec 23, 2019 01:48
--- NOTE | 2019-12-23 02:02 | Diagnostic Imaging Report ---
History: Low back pain, fall Comparison studies: None Technique: Axial images were obtained from inferior T12 through the sacrum. Coronal and sagittal images reconstructed from the axial data. Dose modulation, iterative reconstruction, and/or weight based adjustment of the mA/kV was utilized to reduce the radiation dose to as low as reasonably achievable. Intravenous contrast: None Findings: Number of non-rib bearing vertebral bodies: 5 Alignment: Normal lordosis. Mild lumbar curvature towards the right Soft tissues: Atherosclerotic calcifications in the aorta. Paraspinal muscles: Unremarkable. Vertebrae: Bones are mildly demineralized. No fractures, infection or neoplasm. Degenerative changes: * Mildly degenerated discs. Left confluent anterior osteophytes from L1-L5. * Moderately degenerated disc at L5-S1. * No significant spinal canal stenosis in spite of disc bulges. * Foraminal stenosis is mild bilaterally at L4-5 and moderate bilaterally at L5-S1 due to disc bulges, endplate osteophytes and facet arthrosis. Sacroiliac joints: No degenerative changes. IMPRESSION: 1. No acute abnormalities. 2. Bones are mildly demineralized but no fractures. 3. Degenerative foraminal stenosis, mild at L4-5, moderate at L5-S1 Signed by: Dr. Tomás Woodard M.D. on 12/23/2019 1:59 AM
[2019-12-23 02:42] VITALS: BP 142/63
== END 2019-12-23 03:00 | disposition home or self-care (01) ==
LOC: ER 00:50
DX: M54.5 Low back pain (principal); W18.30XA Fall on same level, unspecified, initial encounter; R32 Unspecified urinary incontinence; I10 Essential (primary) hypertension; E11.9 Type 2 diabetes mellitus without complications; E78.5 Hyperlipidemia, unspecified; F32.9 Major depressive disorder, single episode, unspecified
CPT/HCPCS: 72131; 81001; 99284

== ENCOUNTER 2019-12-31 05:56 | Observation (INO) | payer MEDICARE, OTHER ==
[2019-12-28 17:02] LABS: ANION GAP 13.9 mmol/L (8-16); BLOOD UREA NITROGEN 7 mg/dL (7-26); BUN/CREATININE RATIO 10 (6-25); CALCIUM 8.8 mg/dL (8.4-10.2); CARBON DIOXIDE 30 mmol/L (22-29); CHLORIDE 97 mmol/L (98-107); CREATININE, SERUM 0.67 mg/dL (0.57-1.11); EST GLOMERULAR FILTRATION RATE > 60 ML/MIN (60-); GLUCOSE 228 mg/dL (74-118); POTASSIUM 3.9 mmol/L (3.5-5.1); SODIUM 137 mmol/L (136-145)
[~2019-12-31] VITALS: Ht 172.7 cm; Wt 142.0 kg
[2019-12-31] MEDS ORDERED: CEFAZOLIN SOD 1 GM/NS 50ML 100 ML IV ONE (06:42)
[2019-12-31] MEDS ORDERED: INSULIN REGULAR, HUMAN 100 UNIT/1 ML 3ML VIAL ONE ×2 (07:16→12:07)
[2019-12-31] MEDS ORDERED: BUPIVACAINE HCL 0.5% INJ 30 ML VIAL INJ ONE ×2 (09:07→10:46)
[2019-12-31] MEDS ORDERED: NALOXONE HCL INJ 0.4 MG/ML AMP IV PRN (11:00)
[2019-12-31] MEDS ORDERED: HYDROMORPHONE 0.2MG/ML-SOD CHL 30ML PCA SYRINGE IV PRN (11:00)
[2019-12-31] MEDS ORDERED: ACETAMINOPHEN 1000 MG/100 ML IV PRN (11:00)
[2019-12-31] MEDS ORDERED: ONDANSETRON HCL INJ 2MG/ML 2ML 2 MG/ML VIAL IV PRN (11:00)
[2019-12-31] MEDS ORDERED: HYDROMORPHONE 1MG/1ML INJ ONE (11:28)
--- OUTSIDE RECORDS SUMMARY | 2019-12-31 11:42 | XMS REPORT | Clinical Summary ---
Author Author [facility] Organization [facility] Address Unknown Phone Unavailable Care Team Providers [facility] [employer] Name Role Phone PCP Unavailable Allergies Comments Active Allergy Reactions Severity Noted Date Sulfamethoxazole-Trimetho 12/03/2012 prim rash Ciprofloxacin 10/06/2010 Allergic to shrimp Shellfish Derived Breathing High 07/17/2012 problems, Itching dizzyness Beta-Blockers 06/26/2006 (Beta-Adrenergic Blocking Agts) caused numbness in lower extremity Verapamil 07/29/2006 Medications End Date Status Medication Sig Dispensed Refills Start Date Active ASPIRIN 81 MG TAB, take 1 tablet 0 DELAYED RELEASE (81mg) by oral route once daily Active CHROMIUM 200 MCG CAP None Entered 0 Active GLUCOSAMINE 1500 COMPLEX None Entered 0 500 MG-400 MG CAP Active PRECISION XTRA 1 1 0 GLUCOMETERIndications: 8 Diabetes mellitus type II Active terbinafine (LAMISIL) 250 Take 1 tablet 90 tablet 0 mg tabletIndications: by mouth 3 Onychomycosis daily. Active glucose blood test Check 2 times 4 Box 3 06/12 (PRECISION XTRA) daily 3 stripIndications: Type II or unspecified type diabetes mellitus with neurological manifestations, uncontrolled(250.62) Active INSULIN SYRINGE 4 Box 4 0.5mL/30GX5/16" (ULTRA 3 COMFORT) syringe-needleIndications : Type II or unspecified type diabetes mellitus with neurological manifestations, uncontrolled(250.62) Active LANCETSIndications: Type 4 times 4 Box 4 0 II or unspecified type weekly. 3 diabetes mellitus with neurological manifestations, uncontrolled(250.62) Active traMADol (ULTRAM) 50 mg Take 1 tablet 90 tablet 1 tabletIndications: by mouth 4 Arthritis daily as needed for Pain. Active glimepiride (AMARYL) 4 mg Take 1 tablet 180 tablet 3 tabletIndications: Type by mouth 2 4 II or unspecified type times daily. diabetes mellitus with neurological manifestations, uncontrolled(250.62) Active pramipexole (MIRAPEX) Take 1 tablet 90 tablet 3 0.25 mg by mouth at 4 tabletIndications: bedtime Restless leg nightly. Active amLODIPine (NORVASC) 10 Take 1 tablet 90 tablet 3 mg tablet by mouth 4 daily. Active blood glucose (PRECISION Check blood 100 Each 4 0 XTRA TEST STRIPS) test glucose 4 4 stripsIndications: times weekly. Diabetes mellitus Active clobetasol (TEMOVATE) Apply to 30 g 3 05/30 0.05 % affected area 4 ointmentIndications: 2 times Psoriasis daily. Active pravastatin (PRAVACHOL) Take 1 tablet 90 tablet 2 40 mg tabletIndications: by mouth at 4 Hyperlipidemia bedtime nightly. Active cyclobenzaprine Take 1 tablet 90 tablet 5 07/18/19 1 (FLEXERIL) 10 mg by mouth 3 4 tabletIndications: Back times daily pain as needed (muscle spasm). Active gabapentin (NEURONTIN) TAKE 1 TABLET 270 tablet 11 0 800 mg tabletIndications: BY MOUTH 3 4 Neuropathic pain, Type II TIMES DAILY. or unspecified type diabetes mellitus with neurological manifestations, uncontrolled(250.62), Polyneuropathy in diabetes(357.2) Active metFORMIN (GLUCOPHAGE) Take 1 tablet 180 tablet 1 0 500 mg tabletIndications: by mouth 2 4 Type II or unspecified times daily type diabetes mellitus (with meals). with neurological manifestations, uncontrolled(250.62) Active insulin 70/30 NPH - Inject under 80 mL 6 10/29 REGULAR (NOVOLIN 70/30) the skin 105 4 100 unit/mL units in the injectionIndications: morning and Type II or unspecified 100 units at type diabetes mellitus night. with neurological manifestations, uncontrolled(250.62) Active enalapril (VASOTEC) 20 mg Take 2 180 tablet 1 tabletIndications: HTN tablets by 4 (hypertension), Type II mouth daily. or unspecified type diabetes mellitus with neurological manifestations, uncontrolled(250.62) Active zolpidem (AMBIEN) 10 mg Take 1 tablet 30 tablet 1 TabIndications: Insomnia, by mouth at 4 unspecified bedtime nightly Active hydrALAZINE (APRESOLINE) Take 2 360 tablet 1 0 25 mg tabletIndications: tablets by 4 Uncontrolled hypertension mouth 2 times daily. Active furosemide (LASIX) 20 mg Take 1 tablet 30 tablet 0 tabletIndications: Foot by mouth 2 4 swelling times daily. Active ammonium lactate (AL12) Apply to 225 g 3 12 % lotionIndications: affected area 4 Xerosis cutis as needed for dry skin. Active traMADol (ULTRAM) 50 mg Take 1 tablet 50 tablet 2 tabletIndications: Heel by mouth 4 pain every 6 hours as needed for Pain. Active Problems Problem Noted Date Fecal incontinence 06/12/2012 Blister of foot 06/12/2012 Onychomycosis 06/12/2012 Neuropathic pain 06/12/2012 Need for pneumococcal vaccination 05/07/2012 Insomnia, unspecified 05/07/2012 Obesity, unspecified 05/07/2012 Lumbago 05/07/2012 Unspecified urinary incontinence 08/29/2007 Pain in joint, shoulder region 05/29/2007 Claustrophobia 05/29/2007 Leg cramps 08/19/2006 HTN (hypertension) 03/04/2006 Hyperlipidemia 02/13/2006 Type II diabetes mellitus 02/04/2006 Immunizations Name Administration Dates Next Due DTaP Diphtheria, Tetanus, 05/02/2007 Acellular, Pertussis PPV 23 Pneumococcal 11/20/2012 Polysaccaride Family History Medical History Relation Name Comments Cancer Brother Skin cancer Diabetes Brother Heart Brother Hypertension Brother Diabetes Brother Hypertension Brother Cancer Father Hypertension Father Diabetes Maternal Grandfather Hypertension Maternal Grandfather Stroke Maternal Grandfather Cancer Maternal ? Grandmother Diabetes Maternal Grandmother Arthritis Mother Diabetes Mother Heart Mother Hypertension Mother Hypothyroid Mother Stroke Mother Arthritis Paternal Grandmother Hypertension Sister Relation Name Status Comments Brother (Age 50) Brother Brother Father (Age 60's) Maternal Grandfather Maternal Grandmother Mother in her sle ep (Age 60's) Paternal Grandfather Paternal Grandmother Sister Social History Date Tobacco Use Types Packs/Day Years Used Quit: 01/24/1986 Former Smoker Smokeless Tobacco: Never Used Tobacco Cessation: Counseling Given: No Drinks/Week oz/Week Comments Alcohol Use No Sex Assigned at Date Recorded Not on file Industry Job Start Date Occupation Not on file Not on file Not on file Travel End Travel History Travel Start No recent travel history available. Last Filed Vital Signs Not on file Plan of Treatment Health Maintenance Due Date Last Done Comments Colorectal Cancer Scrn 01/31/2010 01/31/2009 Annual (FIT/FOBT) Age 50 to 75 Cervical Cancer Scrn (3 09/12/2013 09/12/2010 Yrs) (Previously completed - External) DM Foot Exam (Yearly) 12/03/2013 12/03/2012 (Previously completed - External), 01/14/2012 (Previously completed - External) Breast Cancer Scrn 01/28/2014 01/28/2013, (Yearly) 01/28/2013, 01/16/2012, Additional history exists DM Retinal Exam (Yearly) 09/16/2014 09/16/2013, 02/01/2012, 01/17/2011 (Previously completed - External) DM HGBA1C (Yearly) 10/29/2014 10/29/2013, 01/15/2013, 06/10/2012, Additional history exists Results Not on fileafter 12/30/2018 Insurance Type Payer Benefit Subscriber ID Effective Phone Address Plan / Dates Group MEDICARE MEDICARE xxxxxxxxxx 2014- [phone] [id number] [place] [address]
--- OUTSIDE RECORDS SUMMARY | 2019-12-31 11:43 | XMS REPORT | Continuity of Care Document ---
Author Author [facility] t Organization [facility] Address 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 Name Role Phone MD ERNESTO HENSON PCP Ivy Matthews Attphys Unavailable ERNESTO HENSON Attphyeddie Unavailable ERNESTO HENSON Unavailable Payers Payer Name Policy Type Policy Number Effective Date Expiration Date Eddie nuno Medicare A & B [id number] 2016 00:00:00 [facility] [employer] [id number] 2014 00:00:00 [facility] Problems Condition Name Condition Details Condition Category Status Onset Date Resolution Date Last Treatment Date Treating Clinician Comments Source Fecal incontinence Fecal incontinence Disease Active 2012-06-12 00:00:0 0 [facility] Blister of foot Blister of foot Disease Active 2012-06-12 00:00:00 [facility] Onychomycosis Onychomycosis Disease Active 2012-06-12 00:00:00 [facility] Neuropathic pain Neuropathic pain Disease Active 2012-06-12 00:00:00 [facility] Need for pneumococcal vaccination Need for pneumococcal vaccinat ion Disease Active 2012-05-07 00:00:00 [facility] Insomnia, unspecified Insomnia, unspecified Disease Active 201 05-31-05 00:00:00 [facility] Obesity, unspecified Obesity, unspecified Disease Active 00:00:00 [facility] Lumbago Lumbago Disease Active 2012-05-07 00:00:00 [facility] Unspecified urinary incontinence Unspecified urinary incontinenc e Disease Active 2007-08-29 00:00:00 [facility] Pain in joint, shoulder region Pain in joint, shoulder region Disea se Active 2007-05-29 00:00:00 [facility] Claustrophobia Claustrophobia Disease Active 2007-05-29 00:00:00 [facility] Leg cramps Leg cramps Disease Active 2006-08-19 00:00:00 [facility] HTN (hypertension) HTN (hypertension) Disease Active 2006-03-04 00:00:0 0 [facility] Hyperlipidemia Hyperlipidemia Disease Active 2006-02-13 00:00:00 [facility] Type II diabetes mellitus Type II diabetes mellitus Disease Ac tive 2006-02-04 00:00:00 [facility] Abdominal pain Abdominal pain Problem Active [facility] Fever Fever Problem Active [facility] Postoperative abscess Postoperative abscess Problem Active [facility] Back pain Problem Active [facility] Allergies, Adverse Reactions, Alerts Allergy Name Allergy Type Status Severity Reaction(s) Onset Date Inacti ve Date Treating Clinician Comments Source metoprolol succinate DA Active U 2019-12-20 00:00:00 [facility] shrimp FA Active U 2019-12-20 00:00:00 [facility] shrimp FA Active U 2019-03-31 00:00:00 [facility] shrimp Allergy to substance Active 2018-10-24 00:00:00 [facility] metoprolol succinate DA Active U 2016-07-15 00:00:00 [facility] shellfish derived FA Active SV 2016-07-15 00:00:00 [facility] Sulfamethoxazole-Trimethoprim Propensity to adverse reactions to dr nadia Active 2012-12-03 00:00:00 Spence Juanjose lawton Shellfish Derived Propensity to adverse reactions to drug Active Breathing problems, Itching 2012-07-17 00:00:00 Allergic to dorota mp [facility] Ciprofloxacin Propensity to adverse reactions to drug Active 2010-10-06 00:00:00 rash [facility] Verapamil Propensity to adverse reactions to drug Active 2006-07-29 00:00:00 caused numbness in lower extremi ty [facility] Beta-Blockers (Beta-Adrenergic Blocking Agts) Propensi ty to adverse reactions to drug Active 2006-06-26 00:00:00 dizzyness [facility] Family History Family Member Diagnosis Comments Start Date Stop Date Source Natural brother Cancer [facility] Natural brother Heart Spence [facility] Natural brother Diabetes Sp[facility] Natural brother Hypertension [facility] Natural father Cancer [facility] Natural father Hypertension [facility] Maternal grandfather [facility] Maternal grandfather Hypertension [facility] Maternal grandfather Stroke [facility] Maternal grandmother Cancer [facility] Maternal grandmother Diabetes [facility] Natural mother Arthritis [facility] Natural mother Diabetes [facility] Natural mother Heart [facility] Natural mother Hypertension [facility] Natural mother Hypothyroid [facility] Natural mother Stroke [facility] Paternal grandmother Arthritis [facility] Natural sister Hypertension [facility] Social History Social Habit Start Date Stop Date Quantity Comments Source Sex Assigned At [facility] Alcohol intake 2015-02-16 00:00:00 2015-02-16 00:00:00 Current non-drinker of alcohol (finding) [facility] History of tobacco use 1986-01-24 00:00:00 Current smoker [facility] Smoking Status Start Date Stop Date Source Former smoker 2015-02-16 00:00:00 2015-02-16 00:00:00 [facility] Medications Ordered Medication Name Filled Medication Name Start Date Stop Da te Current Medication? Ordering Clinician Indication Dosage Frequency Signature (SIG) Comments Components Source ammonium lactate (AL12) 12 % lotion 2014-01-19 00:00:00 Yes Xerosis cutis Apply to affected area as needed for dry skin. [facility] traMADol (ULTRAM) 50 mg tablet 2014-01-19 00:00:00 Yes Heel pain 50mg Take 1 tablet by mouth every 6 hours as needed for Pain. [facility] hydrALAZINE (APRESOLINE) 25 mg tablet 2013-11-26 00:00:00 Yes Uncontrolled hypertension 50mg Q.5D Take 2 tablets by mouth 2 times daily. [facility] furosemide (LASIX) 20 mg tablet 2013-11-26 00:00:00 Yes Foot swelling 20mg Q.5D Take 1 tablet by mouth 2 times daily. [facility] metFORMIN (GLUCOPHAGE) 500 mg tablet 2013-10-29 00:00:00 Yes Type II or unspecified type diabetes mellitus with neurological manifestations, uncontrolled(250.62) 500mg Take 1 tablet by mouth 2 ti mes daily (with meals). [facility] insulin 70/30 NPH - REGULAR (NOVOLIN 70/30) 100 unit/mL inje ction 2013-10-29 00:00:00 Yes Type II or unspe cified type diabetes mellitus with neurological manifestations, uncontrolled(250.62) Inj ect under the skin 105 units in the morning and 100 units at night. [facility] enalapril (VASOTEC) 20 mg tablet 2013-10-29 00:00:00 Yes Type II or unspecified type diabetes mellitus with neurological manifestations, uncontrolled(250.62) 40mg QD Take 2 tablets by mouth daily. [facility] zolpidem (AMBIEN) 10 mg Tab 2013-10-29 00:00:00 Yes Insomnia, unspecified 10mg Take 1 tablet by mouth at bedtime nightly [facility] cyclobenzaprine (FLEXERIL) 10 mg tablet 2013-07-17 00:00:00 Yes Back pain 10mg Take 1 tablet by mouth 3 times daily as needed (muscle spasm). [facility] gabapentin (NEURONTIN) 800 mg tablet 2013-07-17 00:00:00 Yes Polyneuropathy in diabetes(357.2) TAKE 1 TABLET BY MOUTH 3 TIMES DAILY. [facility] clobetasol (TEMOVATE) 0.05 % ointment 2013-06-08 00:00:00 Yes Psoriasis Q.5D Apply to affected area 2 times daily. [facility] pravastatin (PRAVACHOL) 40 mg tablet 2013-06-08 00:00:00 Yes Hyperlipidemia 40mg Take 1 tablet by mouth at bedtime nightly. [facility] blood glucose (PRECISION XTRA TEST STRIPS) test strips 2013-05-16 00:00:00 Yes Diabetes mellitus Check blood glucose 4 times we ekly. [facility] amLODIPine (NORVASC) 10 mg tablet 2013-05-15 00:00:00 Yes 10mg QD Take 1 tablet by mouth daily. [facility] traMADol (ULTRAM) 50 mg tablet 2013-05-12 00:00:00 Yes Arthritis 50mg Take 1 tablet by mouth daily as needed for Pain. [facility] glimepiride (AMARYL) 4 mg tablet 2013-05-12 00:00:00 Yes Type II or unspecified type diabetes mellitus with neurological manifestations, uncontrolled(250.62) 4mg Q.5D Take 1 tablet by mouth 2 times daily. [facility] pramipexole (MIRAPEX) 0.25 mg tablet 2013-05-12 00:00:00 Yes Restless leg .25mg Take 1 tablet by mouth at bedtime nightly. [facility] ASPIRIN 81 MG TAB, DELAYED RELEASE 2013-03-04 12:38:35 Yes take 1 tablet (81mg) by oral route once daily [facility] CHROMIUM 200 MCG CAP 2013-03-04 12:38:35 Yes None Entered [facility] GLUCOSAMINE 1500 COMPLEX 500 MG-400 MG CAP 2013-03-04 12:38:35 Yes None Entered [facility] terbinafine (LAMISIL) 250 mg tablet 2012-06-12 00:00:00 Yes Onychomycosis 250mg QD Take 1 tablet by mouth daily. [facility] glucose blood test (PRECISION XTRA) strip 2012-06-12 00:00:0 0 Yes Type II or unspecified type diabetes mellitus with neurological manifestations, uncontrolled(250.62) Check 2 times daily [facility] INSULIN SYRINGE 0.5mL/30GX5/16" (ULTRA COMFORT) syringe-need le 2012-06-12 00:00:00 Yes Type II or unspe cified type diabetes mellitus with neurological manifestations, uncontrolled(250.62) [facility] LANCETS 2012-06-12 00:00:00 Yes Type II or unspecified type diabetes mellitus with neurological manifestations, uncontrolled(250.62) 4 times weekly. [facility] PRECISION XTRA GLUCOMETER 2008-02-17 00:00:00 Yes Diabetes mellitus type II 1 [facility] Acetaminophen With Codeine (Tylenol With Codeine #4 Ta blet) 1 Each TABLET Acetaminophen With Codeine (Tylenol With Codeine #4 Tablet) 1 Each TABLET Yes 1 As Needed [facility] Amlodipine Besylate Amlodipine Besylate Yes [address] [facility] Crisaborole (Eucrisa) 100 Gm OINT...G. Crisaborole (Eucrisa) 100 Gm OINT...G. Yes [address] [facility] Cyclobenzaprine Hcl Cyclobenzaprine Hcl Yes 10 Daily [facility] Diphenoxylate Hcl/Atropine (Lomotil Tablet) 1 Each TAB LET Diphenoxylate Hcl/Atropine (Lomotil Tablet) 1 Each TABLET Yes 2.5 Daily as needed for Diarrhea [facility] Duloxetine Hcl (Cymbalta) 20 Mg CAPCR Duloxetine Hcl (Cymbalta) 20 Mg CAPCR Yes 20 Daily [facility] Enalapril Maleate (Vasotec) 10 Mg TAB Enalapril Maleate (Vasotec) 1 0 Mg TAB Yes 20 Daily [facility] Exenatide Microspheres (Bydureon Pen) 2 Mg/0.65 Ml PEN .INJCTR Exenatide Microspheres (Bydureon Pen) 2 Mg/0.65 Ml PEN.INJCTR Yes Weekly On Saturday [facility] Furosemide Furosemide Yes 20 Daily [facility] Gabapentin Gabapentin Yes 800 Twice A Day [facility] Glipizide (Glipizide Er) 5 Mg TAB.ER.24 Glipizide (Glipizide Er) 5 Mg TAB.ER.24 Yes 10 Twice A Day [facility] Ibuprofen Ibuprofen Yes 800 Three Times A Day [facility] Insulin 70/30 Insulin 70/30 Yes 60 Twice A Day [facility] Insulin Regular, Human (Humulin R) 100 Unit/1 Ml VIAL Insulin Regular, Human (Humulin R) 100 Unit/1 Ml VIAL Yes Three T imes A Day [facility] Metformin Hcl (Metformin Hcl Er) 500 Mg TAB.ER.24H Met formin Hcl (Metformin Hcl Er) 500 Mg TAB.ER.24H Yes 1000 Twice A Day [facility] Ondansetron Hcl (Zofran*) 4 Mg TABLET Ondansetron Hcl (Zofran*) 4 M g TABLET Yes 4 Every 8 Hours as needed for Prn [facility] Pramipexole Di-Hcl (Pramipexole Dihydrochloride) 0.25 Mg TABLET Pramipexole Di- Hcl (Pramipexole Dihydrochloride) 0.25 Mg TABLET Yes . 5 Bedtime [facility] Duloxetine Hcl (Cymbalta) 30 Mg CAPSULE. Duloxetine Hcl (Cymbalta) 30 Mg CAPSULE. 2019-10-21 00:00:00 No 20 Daily [facility] Hydrocodone Bit/Acetaminophen ([place] 5-325 Tablet) 1 E ach TABLET Hydrocodone Bit/Acetaminophen ([place] 5-325 Tablet) 1 Each TABLET 2019-10-21 00: 00:00 No 1 Every 4 Hours as needed for Moderate Pain (4-6) [facility] Mirabegron (Myrbetriq) 50 Mg TAB.ER.24H Mirabegron (Myrbetri q) 50 Mg TAB.ER.24H 2019-10-21 00:00:00 No 50 Daily [facility] Pravastatin Sodium Pravastatin Sodium 2019-10-21 00:00:00 No 40 Bedtime [facility] Sitagliptin Phosphate (Januvia) 100 Mg TABLET Sitaglip tin Phosphate (Januvia) 100 Mg TABLET 2019-10-21 00:00:00 No 50 Daily [facility] Immunizations Ordered Immunization Name Filled Immunization Name Date Status Comments Source PPV 23 Pneumococcal Polysaccaride 2012-11-20 00:00:00 Comp leted [facility] DTaP Diphtheria, Tetanus, Acellular, Pertussis 2007-05 00:00:00 Completed [facility] Vital Signs Vital Name Observation Time Observation Value Comments Source Body Temperature 2019-12-23 02:42:00 98.2 [degF] [facility] Weight 2019-12-23 00:50:00 315 [lb_av] [facility] BMI (Body Mass Index) 2019-12-23 00:50:00 47.9 kg/m2 [facility] Procedures Procedure Date / Time Performed Performing Clinician [facility] e Computed tomography of lumbar spine without contrast 2019-12-23 00:00:00 [facility] KNEE ARTHROSCOPY/SURGERY 2019-10-28 00:00:00 [facility] Plan of Care Planned Activity Planned Date Details Comments Source Future Scheduled Test 2014-10-29 00:00:00 Hemoglobin A1c yesenia surement (procedure) [code = 37197837] [facility] Scheduled Test 2014-09-16 00:00:00 DM Retinal Exam (Y early) [code = DM Retinal Exam (Yearly)] [facility] Scheduled Test 2014-01-28 00:00:00 Breast Cancer Scrn (Yearly) [code = Breast Cancer Scrn (Yearly)] [facility] Scheduled Test 2013-12-03 00:00:00 DM Foot Exam (Year ly) [code = DM Foot Exam (Yearly)] [facility] Scheduled Test 2013-09-12 00:00:00 Screening for brad gnant neoplasm of cervix (procedure) [code = 478847872] [facility] Scheduled Test 2010-01-31 00:00:00 Screening for brad gnant neoplasm of colon (procedure) [code = 759938763] [facility] Instructions Back Pain [facility] Encounters Start Date/Time End Date/Time Encounter Type Admission Type Attendi [facility] Care Department Encounter ID Source 2019-12-23 00:50:00 2019-12-23 03:00:00 Departed Emergency Room 1 [facility] [id number] [facility] 2019-10-28 07:53:00 2019-10-28 07:53:00 Registered [facility] [id number] [facility] 2018-11-05 20:44:00 2018-11-13 14:39:00 Discharged Inpatient 1 ERNESTO HENSON [facility] [id number] [facility] 2018-10-28 15:26:00 2018-10-29 12:25:00 Discharged Inpatient (obs) [facility] [id number] [facility] Results Test Description Test Time Test Comments Results Result Comments Source CT LUMBAR SPINE WO 2019-12-23 01:53:00 [facility] [address] [address] Patient Name: ORALIA CM MR #: [id number] : 1960 Age/Sex: 59/F Req #: [id number] Adm Physician: Ordered by: Rita Matthews MD Report #: [id number] Location: ER Room/Bed: Procedure: [id number] CT/CT LUMBAR SPINE WO Exam Date: 12/23/19 Exam Time: 0125 REPORT STATUS: Signed History: Low back pain, fall Comparison studies: None Technique: Axial images were obtained from inferior T12 through the sacrum. Coronal and sagittal images reconstructed from the axial data. Dose modulation, iterative reconstruction, and/or weight based adjustment of the mA/kV was utilized to reduce the radiation dose to as low as reasonably achievable. Intravenous contrast: None Findings: Number of non-rib bearing vertebral bodies: 5 Alignment: Normal lordosis. Mild lumbar curvature towards the right Soft tissues: Atherosclerotic calcifications in the aorta. Paraspinal muscles: Unremarkable. Vertebrae: Bones are mildly demineralized. No fractures, infection or neoplasm. Degenerative changes: * Mildly degenerated discs. Left confluent anterior osteophytes from L1-L5. * Moderately degenerated disc at L5-S1. * No significant spinal canal stenosis in spite of disc bulges. * Foraminal stenosis is mild bilaterally at L4-5 and moderate bilaterally at L5- S1 due to disc bulges, endplate osteophytes and facet arthrosis. Sacroiliac joints: No degenerative changes. IMPRESSION: 1. No acute abnormalities. 2. B ones are mildly demineralized but no fractures. 3. Degenerative foraminal stenosis, mild at L4-5, moderate at L5-S1 Signed by: Dr. Lorenzo Samson M.D. on 12/23/2019 1:59 AM Dictated By: LORENZO BOSWELL MD, MD 8 Transcribed By: MOLLY on 12/23/19158 COPY TO: RITA MATTHEWS MD Urine color determination 2019-12-23 01:04:00 Test Item Urine Color (test code = 5778-6) YELLOW YELLOW [facility] [id number] 01:04:00* Test Item Value Reference Range Interpretation Comments Urine Clarity (test code = 38492-3) SL CLOUDY CLEAR [facility] U[facility] by Test strip 2019-12-23 01:04:00* Test Item Value Reference Range Interpretation Comments Urine Specific [place] (test code = 5811-5) 1.020 1.010-1.02 5 [facility] pH measurement by automated test [id number] 01:04:00* Test Item Value Reference Range Interpretation Comments Urine pH (test code = 53210-4) 5.5 5-7 [facility] leukocyte esterase detection by [id number] 01:04:00* Test Item Value Reference Range Interpretation Comments Urine Leukocyte Esterase (test code = 5799-2) NEGATIVE NEGATIVE [facility] nitrite [id number] 01:04:00* Test Item Value Reference Range Interpretation Comments Urine Nitrite (test code = 79781-7) POSITIVE NEGATIVE [facility] protein measurement by test strip (mass/volume)2019-12-23 01:04:00* Test Item Value Reference Range Interpretation Comments Urine Protein (test code = 5804-0) NEGATIVE NEGATIVE [facility] glucose [id number] 01:04:00* Test Item Value Reference Range Interpretation Comments Urine Glucose (UA) (test code = 2349-9) 3+ NEGATIVE [facility] ketones detection by automated test [id number] 01:04:00* Test Item Value Reference Range Interpretation Comments Urine Ketones (test code = 76368-8) NEGATIVE NEGATIVE [facility] urobilinogen measurement by test strip (mass/volume)2019-12-23 01:04:00* Test Item Value Reference Range Interpretation Comments Urine Urobilinogen (test code = 23229-6) 0.2 0.2-1 [facility] total bilirubin measurement (mass/volume)2019-12-23 01:04:00* Test Item Value Reference Range Interpretation Comments Urine Bilirubin (test code = 1978-6) NEGATIVE NEGATIVE [facility] erythrocytes [id number] 01:04:00* Test Item Value Reference Range Interpretation Comments Urine Blood (test code = 23752-1) NEGATIVE NEGATIVE [facility] Hospital[facility] urine sediment leukocyte count by microscopy (number/high power field)2019-12-23 01:04:00* Test Item Value Reference Range Interpretation Comments Urine WBC (test code = 5821-4) 6-10 0-5 [facility] Hospital[facility]rythrocytes detection in urine sediment by light [id number] 01:04:00* Test Item Value Reference Range Interpretation Comments Urine RBC (test code = 98736-2) 0-5 0-5 [facility]acteria detection in urine sediment by light [id number] 01:04:00* Test Item Value Reference Range Interpretation Comments Urine Bacteria (test code = 80718-4) MANY NONE [facility] HospitalEpithelial cells detection in urine sediment by light [id number] 01:04:00* Test Item Value Reference Range Interpretation Comments Urine Epithelial Cells (test code = 24823-3) FEW NONE [facility]- CT ABD PELVIS [id number] 09:45:00 Name: ORALIA CM [facility] : 1960 Age/S: 59 / F [address] [facility] Unit #: [id number] Loc: [place] [address] Phys: Wilver Coulter MD Acct: [id number] Di s Date: Status: REG ER PHONE #: Exam Date: 12/20/2019924 FAX #: Reason: R flank pain EXAMS: CPT CODE: [id number] CT ABD PELVIS W/CONT 47577 HISTORY: Right flank pain. COMPARISON: October 18, 2019.. Location: TH. CT of abdomen and pelvis with IV contrast: 100 mL of Isovue-[address] of abdomen: Note: Marked ly suboptimal contrast bolus. The lung bases are clear. Dependent changes. Hepatic parenchyma demonstrating mild fatty infiltration. No abnormal enhancing masses or lesions although the contrast bolus is suboptimal. No architectural distortion. Hepatomegaly with the liver yesenia suring 21.4 cm in length. No laceration. The spleen is not enlarged. No laceration on this noncontrast study. The stomach distended incompletely however it is normal in appearance. Pancreas is enha ncing homogeneously is normal. Adrenals are normal. Kidneys are f ree from hydroureteronephrosis. Homogeneous enhancement and excretion. No pathologic adenopathy. Mild atherosclerotic change of the abdominal and pelvic vasculature. Vasculature remains well opacified with in the limits of this examination. Extensive beam hardening artifact from patient's large body habitus. No bowel obstruction or colitis or diverticulitis or enteritis. Constipation. CT PELVIS: Appendix is not visible with certainty but no inflammatory change pelvic bowel loops are unobstructed. Unremarkable well-distended urinary bladder. Unremarkable uterus with poorly visualized ovaries. No free fluid or free air or abscess. No pelvic pathologic adenopathy. PAGE 1 Signed Report (CONTINUED) Name: ORALIA CM [facility]: 1960 Age/S: 59 / F [address] [facility] Unit #: [id number] Loc: [place] [address] Phys: Shalonda Coulter MD Acct: [id number] Dis Date: Status: REG ER PHONE #: [phone] Exam Date: 12/20/2019924 FAX #: Reason: R flank pain EXAMS: CPT CODE: [id number] CT ABD PELVIS W/CONT 58030 <Continued> Subcutaneous tissues and the musculature demonstrating fat-containing ventral hernia in the infra umbilical location without incarceration and without loops of bowel. No lytic or blastic lesions are noted within the bony skeleton. DJD. IMPRESSION: No acute intra-abdominal or intrapelvic pathology. Limited study due to beam hardening artifact from patient's massive body habitus. at 0945 Reported and signed by: Stephan Ferraro M.D. CC: Kyara Henson Rajan MD Technologist:Arnav Calles RT(R)(CT) CTDI: DLP: Trnscb Date/Time: 12/20/2019 (0945) t.SDR.TH Orig Print D/T: S: 12/20/2019 (6189) PAGE 2 Signed Report - CT C-SPINE W/O CONTRAST 2019-12-20 09:37:00 Name: ORALIA CM [facility] : 1960 Age/S: 59 / F [address] Unit #: [id number] Loc: [place] [address] Phys: Praful Coulter MD Acct: [id number] Dis Date: Status: REG ER PHONE #: [phone] Exam Date: 12/20/2019924 FAX #: [phone] Reason: Neck Pain EXAMS: CPT CODE: [id number] CT C-SPINE W/O CONTRAST 75257 HISTORY: Neck pain. COMPARISON: None available. Location: TH. CT cervical spine without contrast: Automated exposure control. No acute fracture of the cervical spine. Extensive calcification of the posterior longitudinal ligament at C2-C3 level resulting in moderate canal stenosis. Multilevel foraminal stenosis from facet hypertrophy and posterior marginal osteophytes as well. No prevertebral soft tissue swelling. Unremarkable thyroid glands. Superior mediastinum is unremarkable. Lung apices are clear. Anatomic alignment. Calcification of the anterior longitudinal ligament as well from C3 through C6 level. Disc space loss at C3-C4 and C7-T1 level. Osteopenia. IMPRESSION: No acute fracture. Anatomic alignment. DJD. at 0937 Reported and signed by: Stephan Ferraro M.D. CC: Kyara Henson Rajan MD Technologist:Arnav Calles RT(R)(CT) CTDI: DLP: Trnscb Date/Time: 12/20/2019 (0937) t.JAQUELINR.[email or web address] Orig Print D/T: S: 12/20/2019 (2190) PAGE 1 Signed Report - XR FOREARM 2 VIEWS [id number] 09:31:00 FAX: Ernesto Gusman MD [place]: St: REG FAX: Praful Coulter MD [phone] Name: ORALIA CM [facility] : 1960 Age/S: 59/F [address] Unit #: [id number] Loc: [place] [address] Phys: Praful Coulter MD Acct: [id number] Dis Date: Status: REG ER PHONE #: [phone] Exam Date: 12/20/2019914 FAX #: [phone] Reason: FOREARM PAIN EXAMS: CPT CODE: [id number] XR FOREARM [address] [place] [address] HISTORY: Pain after fall. Location: TH. 3 views of the right hip: COMPARISON: August 10, 2016. Markedly narrowed hip joint. No AVN. Trabecular pattern is normal. Mild demineralization. Marginal osteophytes from the lesser and the greater trochanters. The symphysis is well opposed. The pelvic ring is intact on a single view. Additional views would be of value. DJD of the lower lumbar spine. SI joints are preserved. IMPRESSION: No acute fracture or dislocation. Markedly narrowed hip joint without AVN. Single view of the forearm: No acute fracture or dislocation of the forearm on a single view. M arkedly narrowed elbow joint with marginal osteophytes. Small joint flu id. The wrist joint is preserved. No AVN of the lunate or the scaphoid bones. IMPRESSION: No acute fracture or dis location on the single view. Narrowed elbow joint with joint fluid. at 0931 Reported and signed by: Stephan Ferraro M.D. CC: Shalonda Henson; Praful Coulter MD Technologist: ELEN FARAH RT (R); ... Trnscrd Date/Time/By: 12/20/2019 (0931) : Umm y: [email or web address] Orig Print D/T: S: 12/20/2019 (0975) PAGE 1 Signed Report - XR HIP W/PEL UNI 2+V [id number] 09:31:00 FAX: Ernesto Gusman MD [place]: St: REG FAX: Praful Coulter MD [phone] Name: ORALIA CM [facility] : 1960 Age/S: 59/F [address] [facility] Unit #: [id number] Loc: [place] [address] Phys: Praful Coulter MD Acct: [id number] Dis Date: Status: REG ER PHONE #: [phone] Exam Date: 12/20/2019854 FAX #: [phone] Reason: HIP PAIN EXAMS: CPT CODE: [id number] XR HIP W/PEL UNI 2+[place] [address] HISTORY: Pain after fall. Location: . 3 views of the right hip: COMPARISON: August 10, 2016. Markedly narrowed hip joint. No AVN. Trabecular pattern is normal. Mild demineralization. Marginal osteophytes from the lesser and the greater trochanters. The symphysis is well opposed. The pelvic ring is intact on a single view. Additional views would be of value. DJD of the lower lumbar spine. SI joints are preserved. IMPRESSION: No acute fracture or dislocation. Markedly narrowed hip joint without AVN. Single view of the forearm: No acute fracture or dislocation of the forearm on a single view. Markedly narrowed elbow joint with marginal osteophytes. Small joint fluid. The wrist joint is preserved. No AVN of the lunate or the scaphoid bones. IMPRESSION: No acute fracture or dislocation on the single view. Narrowed elbow joint with joint fluid. at 0931 Reported and signed by: Stephan Ferraro M.D. CC: Ernesto Henson; Praful Coulter MD Technologist: ELEN JONES RT (R); ... Trnwyrd Date/Time/By: 12/20/2019 (930) : By: [email or web address] Orig Print D/T: S: 12/20/2019 (8955) PAGE 1 Signed Report - XR ELBOW 2 VIEWS [id number] 09:28:00 FAX: Ernesto Gusman MD [place]: St: REG FAX: Praful Coulter MD [phone] Name: ORALIA CM [facility] : 1960 Age/S: 59/F [address] [facility] Unit #: [id number] Loc: [place] [address] Phys: Praful Coulter MD Acct: [id number] Dis Date: Status: REG ER PHONE #: [phone] Exam Date: 12/20/2019 09 FAX #: [phone] Reason: ELBOW PAIN EXAMS: CPT CODE: [id number] XR ELBOW [address] [place] [address] HISTORY: Fall and pain. COMPARISON: None available. Location: TH. 2 views of the left humerus and single oblique view of the elbow: Acute traumatic linear/oblique fracture of the distal humeral diaphysis with extension into the metaphysis. Mild dorsal displacement. Suboptimal positioning limits evaluation. Elbow joint fluid suspected. Marginal osteophytes from the olecranon. Markedly narrowed glenohumeral and AC joints. IMPRESSION: Limited study due to positioning. Linear/oblique fracture of the distal humeral diaphysis and metaphysis with dorsal displacement of the distal fracture fragment. DJD. Narrowed elbow joint, AC joint and glenohumeral joints. at 0928 Reported and signed by: Stephan Ferraro M.D. CC: Ernesto Henson; Praful Coulter MD Technologist: ELEN JONES RT (R); ... Trnwyrd Date/Time/By: 12/20/2019 (09) : By: [email or web address] Orig Print D/T: S: 12/20/2019 (31) PAGE 1 Signed Report - XR HUMERUS 2 + V [id number] 09:28:00 FAX: Ernesto Gusman MD [place]: St: REG FAX: Praful Coulter MD [phone] Name: ORALIA CM [facility] : 1960 Age/S: 59/F [address] [facility] Unit #: [id number] Loc: [place] [address] Phys: Praful Coulter MD Acct: [id number] Dis Date: Status: REG ER PHONE #: [phone] Exam Date: 12/20/2019 0900 FAX #: [phone] Reason: ARM PAIN EXAMS: CPT CODE: [id number] XR HUMERUS 2 + V LT [address] HISTORY: Fall and pain. COMPARISON: None available. Location: TH. 2 views of the left humerus and single oblique view of the elbow: Acute traumatic linear/oblique fracture of the distal humeral diaphysis with extension into the metaphysis. Mild dorsal displacement. Suboptimal positioning limits evaluation. Elbow joint fluid suspected. Marginal osteophytes from the olecranon. Markedly narrowed glenohumeral and AC joints. IMPRESSION: Limited study due to positioning. Linear/oblique fr acture of the distal humeral diaphysis and metaphysis with dorsal displa cement of the distal fracture fragment. DJD. Narrowed elbow joint, AC joint and glenohumeral joints. at 0928 Reported and signed by: Jessica Ferraro M.D. CC: Ernesto Henson; Praful Coulter MD Technologist: ELEN JONES RT (R); ... Trnscrd Date/Time/By: 12/20/2019 (927) : By: [email or web address] Orig Print D/ T: S: 12/20/2019 (31) PAGE 1 Si gned Report - XR L-SPINE 2/3 [id number] 09:25:00 FAX: Ernesto Gusman MD [place]: St: REG FAX: Praful Coulter MD [phone] Name: ORALIA CM [facility] : 1960 Age/S: 59/F [address] [facility] Unit #: [id number] Loc: [place] [address] Phys: Praful Coulter MD Acct: [id number] Dis Date: Status: REG ER PHONE #: [phone] Exam Date: 12/20/2019 0850 FAX #: [phone] Reason: BACK PAIN EXAMS: CPT CODE: [id number] XR L-SPINE 2/3 VIEWS 50194 HISTORY: Pain. COMPARISON: None available. Location: TH. AP and lateral view of the T-spine: Note: Lateral view is very limited due to positioning. No acute fracture or dislocation. Vertebral body heights are maintained. Calcification of anterior longitudinal ligament. Narrowed disc space throughout the spine. Vertebral body heights are maintained. Anterior osteophytes. Osteopenia. IMPRESSION: No acute fracture or dislocation. Limited lateral view. Vertebral body heights are maintained. AP and lateral view of the L-spine: Note: Severely limited lateral view due to positioning. No acute fracture or dislocation. Bridging anterolateral marginal osteophytes. Vertebral body heights are grossly maintained. Disc space loss at L5-S1 level. Anterior osteophytes. SI joints are preserved. IMPRESSION: Limited study due to positioning especially for the lateral view. Vertebral body heights are maintained. No acute fracture or dislocation. at 0925 Reported and signed by: Stephan Ferraro M.D. PAGE 1 Signed Report (CONTINUED) FAX: Ernesto Gusman MD [place]: St: REG FAX: Praful Coulter MD [phone] Name: ORALIA GUNTER [facility] : [birth year] Age/S: 59/F [address] [facility] Unit #: [id number] Loc: [place] [address] Phys: Praful Coulter MD Acct: [id number] Dis Date: Status: REG ER PHONE #: [phone] Exam Date: 12/20/2019 0850 FAX #: [phone] Reason: BACK PAIN EXAMS: CPT CODE: [id number] XR L-SPINE 2/3 VIEWS 44901 <Continued> CC: Ernesto Henson; Praful Coulter MD Technologist: ELEN JONES RT (R); ... Trnscrd Date/Time/By: 12/20/2019 (0925) : By: [email or web address] Orig Print D/T: S: 12/20/2019 (3846) PAGE 2 Signed Report - XR T-SPINE 3 [id number] 09:25:00 FAX: Ernesto Gusman MD [place]: B St: REG FAX: Praful Coulter MD [phone] Name: ORALIA CM [facility] : 1960 Age/S: 59/F [address] Unit #: [id number] Loc: [place] [address] Phys: Praful Coulter MD Acct: [id number] Dis Date: Status: REG ER PHONE #: [phone] Exam Date: 12/20/2019 0850 FAX #: [phone] Reason: BACK PAIN EXAMS: CPT CODE: [id number] XR T-SPINE 3 VIEWS 18466 HISTORY: Pain. COMPARISON: None available. Location: TH. AP and lateral view of the T-spine: Note: Lateral view is very limited due to positioning. No acute fracture or dislocation. Vertebral body heights are maintained. Calci fication of anterior longitudinal ligament. Narrowed disc space throughou t the spine. Vertebral body heights are maintained. Anterior osteophytes . Osteopenia. IMPRESSION: No acute fracture o r dislocation. Limited lateral view. Vertebral body heights are mainta ined. AP and lateral view of the L-spine: Note: Severely limited lateral view due to positioning. No acute fracture or dislocation. Bridging anterolateral marginal ost eophytes. Vertebral body heights are grossly maintained. Disc space lo ss at L5-S1 level. Anterior osteophytes. SI joints are preserved. IMPRESSION: Limited study due to positioning josh ecially for the lateral view. Vertebral body heights are maintained. N o acute fracture or dislocation. at 0925 Reported and taylor d by: Stephan Ferraro M.D. PAGE 1 Signed Report (CONTINUED) FAX: Ernesto Gusman MD [place]: B St: REG FAX: Praful Coulter MD [phone] Name: ZOLTAN VILLANUEVAORALIA BELLEY [facility] : Age/S: 59/F [address] Unit #: [id number] Loc: [place] [address] Phys: Praful Coulter MD Acct: [id number] Dis Date: Status: REG ER PHONE #: [phone] Exam Date: 12/20/2019 0850 FAX #: [phone] Reason: BACK PAIN EXAMS: CPT CODE: [id number] XR T-SPINE 3 VIEWS 61277 <Continued> CC: Ernesto Henson; Praful Coulter MD Technologist: ELEN JONES RT (R); ... Trnscrd Date/Time/By: 12/20/2019 (924) : By: [email or web address] Orig Print D/T: S: 12/20/2019 (09) PAGE 2 Signed Report - XR CHEST 1 [id number] 09:22:00 FAX: Ernesto Gusman MD [place]: B St: REG FAX: Praful Coulter MD [phone] Name: ORALIA CM [facility] : 1960 Age/S: 59/F [address] Unit #: [id number] Loc: [place] [address] Phys: Praful Coulter MD Acct: [id number] Dis Date: Status: REG ER PHONE #: [phone] Exam Date: 12/20/2019844 FAX #: [phone] Reason: CHEST PAIN EXAMS: CPT CODE: [id number] XR CHEST 1 V 45704 HISTORY: Chest pain. COMPARISON: October 18, 2019. Location: TH. No acute infiltrates, effusion or congestion is noted. No pneumothorax. Moderate cardiomegaly. IMPRESSION: No acute infiltrates, effusion or congestion. at 09 Reported and signed by: Stephan Ferraro M.D. CC: Ernesto Henson; Praful Coulter MD Technologist: ELEN JONES RT (R); ... Trnscrd Date/Time/By: (921) : By: [email or web address] Orig Print D/T: S: 12/20/2019 (924) PAGE 1 Signed Report - CT HEAD/BRAIN W/O [id number] 09:21:00 Name: ORALIA CM [facility] : 1960 Age/S: 59 / F [address] Unit #: [id number] Loc: [place] [address] Phys: Praful Coulter MD Acct: [id number] Dis Date: Status: REG ER PHONE #: [phone] Exam Date: 12/20/2019924 FAX #: [phone] Reason: HEADACHE EXAMS: CPT CODE: [id number] CT HEAD/BRAIN W/O CONT 20829 HISTORY: Headache after fall. COMPARISON: March 31, 2019. Location: TH. CT brain without contrast: Automated exposure control. No acute intracranial bleeds or extra-axial collections are noted. No acute territorial vascular infarction is noted. The sulci, gyri, vent ricles and subarachnoid spaces and the basilar cisterns are normal for pat ient's age. No herniation or hydrocephalus or midline shift is noted. Mild periventricular ischemic gliosis is noted. Age-appropriate atrophy is noted as well. Portions of the visualized paranasal sin uses are normal. No obvious bony calvarial defect is noted. IMPRESSION: No acute intracranial bleeds or extra-ax ial collections. No acute territorial vascular infarction. No herniation or hydrocephalus or midline shift. Chronic white matter ischemic disease and atrophy . at 0921 Reported and signed by: Stephan Ferraro M.D. CC: Ernesto Henson; Praful Coulter MD Technologist:Arnav Calles RT(R)(CT) CTDI: DLP: Trnscb Date/Time: 12/20/2019 (920) [email or web address] Orig Print D/T: S: 12/20/2019 (37) PAGE 1 Signed Report BASIC METABOLIC PANEL 2019-12-20 08:49:00* Test Item Value Reference Range Interpretation Comments SODIUM (test code = NA) 139 mmol/L 136-145 N POTASSIUM (test code = K) 3.7 mmol/L 3.5-5.1 N CHLORIDE (test code = CL) 101.0 mmol/L 98-107 N CARBON DIOXIDE (test code = CO2) 30.0 mmol/L 21-32 N ANION GAP (test code = GAP) 11.7 10-20 N GLUCOSE (test code = GLU) 191 mg/dL 74-106 H BLOOD UREA NITROGEN (test code = BUN) 10 mg/dL 7-18 N GLOMERULAR FILTRATION RATE (test code = GFR) > 60 mL/min >=60 Estimated GFR by using Modified MDRD formula.Chronic kidney disease is defined as either kidney damageor GFR <60 mL/min/1.73 m2 for >3 months. CREATININE (test code = CREAT) 0.60 mg/dL 0.55-1.02 N Note change in reference range due to change in reagent. BUN/CREATININE RATIO (test code = BUN/CREA) 16.4 10-20 N CALCIUM (test code = CA) 8.6 mg/dL 8.5-10.1 N HEPATIC FUNCTION [id number] 08:49:00* Test Item Value Reference Range Interpretation Comments TOTAL PROTEIN (test code = PROT) 6.9 gram/dL 6.4-8.2 N ALBUMIN (test code = ALB) 3.4 g/dL 3.4-5.0 N GLOBULIN (test code = GLOB) 3.5 gram/dL 2.7-4.2 N ALBUMIN/GLOBULIN RATIO (test code = A/G) 1.0 0.75-1.50 N BILIRUBIN TOTAL (test code = BILT) 0.50 mg/dL 0.0-1.0 N BILIRUBIN DIRECT (test code = BILD) 0.19 mg/dL 0.0-0.20 N SGOT/AST (test code = AST) 35 IUnit/L 15-37 N SGPT/ALT (test code = ALT) 36 IUnit/L 12-78 N ALKALINE PHOSPHATASE TOTAL (test code = ALKP) 89 IUnit/L 45-117 N Note change in reference range due to change in reagent. [id number] 08:49:00* Test Item Value Reference Range Interpretation Comments LIPASE (test code = LIP) 243 U/L 73.0-393.0 N PROTHROMBIN [id number] 08:49:00* Test Item Value Reference Range Interpretation Comments PROTHROMBIN TIME PATIENT (test code = PTP) 12.6 seconds 9.0-14.0 N INTERNATIONAL NORMAL RATIO (test code = INR) 1.1 0.8-1.2 N The therapeutic range for oral anticoagulant therapy formost indications is an international normalized ratio (INR)of between 2.0 and 3.0. The recommended therapeutic INRrange for various clinical situations is listed below: Clinical Situation INR range Pulmonary e mbolism treatment (2.0-3.0)Venous thrombosis treatmentVenous thrombosis prophylaxis (high risk surgery)Prevention of systemic embolism from: Acute myocardial infarction Valvular heart disease Atrial fibrillation Mechanical prosthetic heart valves (2.5-3.5) IS PATIENT ON ANTICOAGULANTS? NTHROMBOPLASTIN TIME [id number] 08:49:00* Test Item Value Reference Range Interpretation Comments THROMBOPLASTIN TIME PARTIAL (test code = PTT) 25.8 seconds 23.0-37. 0 N IS PATIENT ON ANTICOAGULANTS? NBASIC METABOLIC [id number] 08:42:00* Test Item Value Reference Range Interpretation Comments SODIUM (test code = NA) 139 mmol/L 136-145 N POTASSIUM (test code = K) 3.7 mmol/L 3.5-5.1 N CHLORIDE (test code = CL) 101.0 mmol/L 98-107 N CARBON DIOXIDE (test code = CO2) mmol/L 21-32 ANION GAP (test code = GAP) 10-20 GLUCOSE (test code = GLU) mg/dL 74-106 BLOOD UREA NITROGEN (test code = BUN) mg/dL 7-18 GLOMERULAR FILTRATION RATE (test code = GFR) mL/min >=60 CREATININE (test code = CREAT) mg/dL 0.55-1.02 BUN/CREATININE RATIO (test code = BUN/CREA) 10-20 CALCIUM (test code = CA) mg/dL 8.5-10.1 HEPATIC FUNCTION [id number] 08:42:00* Test Item Value Reference Range Interpretation Comments TOTAL PROTEIN (test code = PROT) gram/dL 6.4-8.2 ALBUMIN (test code = ALB) g/dL 3.4-5.0 GLOBULIN (test code = GLOB) gram/dL 2.7-4.2 ALBUMIN/GLOBULIN RATIO (test code = A/G) 0.75-1.50 BILIRUBIN TOTAL (test code = BILT) mg/dL 0.0-1.0 BILIRUBIN DIRECT (test code = BILD) mg/dL 0.0-0.20 SGOT/AST (test code = AST) IUnit/L 15-37 SGPT/ALT (test code = ALT) IUnit/L 12-78 ALKALINE PHOSPHATASE TOTAL (test code = ALKP) IUnit/L 45-117 [id number] 08:42:00* Test Item Value Reference Range Interpretation Comments LIPASE (test code = LIP) U/L 73.0-393.0 CBC W/O [id number] 08:36:00* Test Item Value Reference Range Interpretation Comments WHITE BLOOD CELL (test code = WBC) 6.5 K/mm3 4.5-12.5 N RED BLOOD CELL (test code = RBC) 4.72 mill/mm3 3.7-5.2 N HEMOGLOBIN (test code = HGB) 13.2 gram/dL 11.5-15.5 N HEMATOCRIT (test code = HCT) 41.0 % 36.0-46.0 N MEAN CELL VOLUME (test code = MCV) 86.9 fL 80-98 N MEAN CELL HGB (test code = MCH) 28.0 picogram 27.0-33.0 N MEAN CELL HGB CONCETRATION (test code = MCHC) 32.2 gram/dL 33.0-36. 0 L RED CELL DISTRIBUTION WIDTH (test code = RDW) 12.7 % 11.6-16. 2 N PLATELET COUNT (test code = PLT) 198 K/mm3 150-450 N MEAN PLATELET VOLUME (test code = MPV) 10.1 fL 6.7-11.0 N Capillary blood glucose measurement by glucometer (mass/volume)2019-10-28 12:40:00* Test Item Value Reference Range Interpretation Comments Bedside Glucose (test code = 07178-5) 215 70-120 Meter ID: [id number] [facility] HospitalFluoroscopic procedure less than one hour [id number] 11:48:00* Test Item Value Reference Range Interpretation Comments Coronavirus (PCR) (test code = Coronavirus (PCR)) NOT DETECTED NOTD ETECTED [employer]ptima SARS-CoV-2 assay is a nucleic amplification test intended for the qualitative detection of RNA from SARS-CoV-2 from nasopharyngeal ([employer]) specimens. It is used under Emergency Use Authorization (EUA) by FDA.A positive result is indicative of the presence of SARS-CoV-2 RNA. Clinical correlation with patient history and other diagnostic information is necessary to determine patient infe ction status.A negative (Not Detected) result does not preclude SARS-CoV-2 infec tion. Clinical Correlation with patient history and other diagnostic information should be used in patient management decisions.Invalid: Unable to generate a va lid result on this specimen. Please submit a new specimen for reprat testing oc clinically indicated.Tesing performed by:[facility] Laboratory [address] [place] [address] [id number], Todd Chaves MD, PhD [facility] plasma sodium measurement (moles/volume)2019-10-23 11:30:00* Test Item Value Reference Range Interpretation Comments Sodium Level (test code = 2951-2) 144 136-145 [facility] or plasma potassium measurement (moles/volume)2019-10-23 11:30:00* Test Item Value Reference Range Interpretation Comments Potassium Level (test code = 2823-3) 4.4 3.5-5.1 [facility] plasma chloride measurement (moles/volume)2019-10-23 11:30:00* Test Item Value Reference Range Interpretation Comments Chloride Level (test code = 2075-0) 100 98-107 [facility] or plasma carbon dioxide, total measurement (moles/volume)2019-10-23 11:30:00* Test Item Value Reference Range Interpretation Comments Carbon Dioxide Level (test code = 2028-9) 30 22-29 [facility] or plasma anion [id number] 11:30:00* Test Item Value Reference Range Interpretation Comments Anion Gap (test code = 28918-9) 18.4 8-16 [facility] or plasma urea nitrogen measurement (mass/volume)2019-10-23 11:30:00* Test Item Value Reference Range Interpretation Comments Blood Urea Nitrogen (test code = 3094-0) 10 7-26 [facility] or plasma creatinine measurement (mass/volume)2019-10-23 11:30:00* Test Item Value Reference Range Interpretation Comments Creatinine (test code = 2160-0) 0.77 0.57-1.11 [facility] or plasma urea nitrogen/creatinine mass [id number] 11:30:00* Test Item Value Reference Range Interpretation Comments BUN/Creatinine Ratio (test code = 3097-3) 13 6-25 [facility] HospitalEstim[facility] filtration rate (GFR) [id number] 11:30:00* Test Item Value Reference Range Interpretation Comments Estimat Glomerular Filtration Rate (test code = 367660691) > 60 >60 Ranges were taken from the National Kidney Disease Education Program and the [facility] literature.Reference ranges:60 or greater: Ddpfee16-67 ( for 3 consecutive months): Chronic kidney disease 15 or less: Kidney failureGonzales Memorial HospitalGlucose [id number] 11:30:00* Test Item Value Reference Range Interpretation Comments Glucose Level (test code = NHU3474) 189 74-118 [facility] or plasma calcium measurement (mass/volume)2019-10-23 11:30:00* Test Item Value Reference Range Interpretation Comments Calcium Level (test code = 14313-7) 9.8 8.4-10.2 [facility] HospitalNovel Coronavirus 2019 [id number] 16:30:00* Test Item Value Reference Range Interpretation Comments Novel Coronavirus 2019 nCoV (test code = COVID19) Negative Nega tive Does patient have the clinical criteria consistent with COVID-19? YIs the patien t going to be discharged home? Y- CT ABD PELVIS W/O [id number] 23:37:00 Name: ORALIA CM [facility] : 1960 Age/S: 59 / F [address] [facility] Unit #: [id number] Loc: [place] [address] Phys: Mirza Monson MD Acct: [id number] Di s Date: Status: REG ER PHONE #: Exam Date: 10/18/2019 5233 FAX #: [phone] Reason: ABD PAIN EXAMS: CPT CODE: [id number] CT ABD PELVIS W/O CONT 93089 EXAM: - CT ABD PELVIS W/O CONT HISTORY: Abdominal pain. TECHNIQUE: Axial kathryn ograms through the abdomen and pelvis were obtained after intravenous cont rast. Coronal and sagittal reformatted images are provided. This e xam was performed according to our departmental dose-optimization program, which includes automated exposure control, adjustment of the mA and/or kV according to patient size and/or use of iterative reconstruction techniqu e. COMPARISON: None available time of interpretation. FINDINGS: The visualized lung bases are clear. The unenhanced liver, spleen, pancreas, adrenal glands and kidneys demonstrate no significant abnormalities. The appendix has a normal appearan ce. The bowel is unremarkable. The colon is filled with fecal matter thro ughout its length. There is no adenopathy or free fluid. There is a small to moderate sized umbilical hernia containing fat. There is subcutaneous fat changes in lower abdomen anteriorly. Minimal subcutaneous fluid inferior to the hernia. Prior hernia repair surgical changes in th is area is a possibility. Degenerative changes are present in spin e. Minimal calcific plaques in aorta. IMPRESSION: Umbilical hernia containing fat. Subcutaneous compl ex fat changes in lower abdomen may represent cellulitis or postsurgical changes. Electronically Signed by Ever Naylor MD on at 7898 Reported and signed by: Ever Naylor MD PAGE 1 Signed Report (CONTINUE D) Name: ORALIA CM [facility] : 1960 Age/S: 59 / F [address] [facility] Unit #: [id number] Loc: [facility] [place] [address] Phys: Jodi Monson MD Acct: [id number] Dis Date: Status: REG ER PHONE #: [phone] Exam Date: 10/18/20192257 FAX #: [phone] Reason: ABD PAIN EXAMS: CPT CODE: [id number] CT ABD PELVIS W/O CONT 86135 <Continued> CC: Ernesto Henson Technologist:HENRIQUE EDWARDS CTDI: DLP: Trnscb Date/Time: 10/18/2019 (233) [id number] Orig Print D/T: S: 10/18/2019 (4315) PAGE 2 Signed Report COMPREHENSIVE METABOLIC [id number] 22:18:00* Test Item Value Reference Range Interpretation Comments SODIUM (test code = NA) 137 mmol/L 136-145 N POTASSIUM (test code = K) 4.4 mmol/L 3.5-5.1 N CHLORIDE (test code = CL) 98 mmol/L 101-109 L CARBON DIOXIDE (test code = CO2) 33.2 mmol/L 21-32 H ANION GAP (test code = GAP) 10 mmol/L 10-20 N GLUCOSE (test code = GLU) 253 mg/dL 74-106 H BLOOD UREA NITROGEN (test code = BUN) 16 mg/dL 3-21 N CREATININE (test code = CREAT) 1.05 mg/dL 0.55-1.3 N BUN/CREATININE RATIO (test code = BUN/CREA) 15.2 10-20 N TOTAL PROTEIN (test code = PROT) 6.9 g/dL 6.5-8.4 N ALBUMIN (test code = ALB) 3.1 g/dL 3.4-4.8 L GLOBULIN (test code = GLOB) 3.8 G/DL 1-10 N ALBUMIN/GLOBULIN RATIO (test code = A/G) 0.82 RATIO 0.75-1.50 N CALCIUM (test code = CA) 8.5 mg/dL 8.4-10.2 N BILIRUBIN TOTAL (test code = BILT) 1.10 mg/dL 0.0-1.0 H SGOT/AST (test code = AST) 71 U/L 6-32 H SGPT/ALT (test code = ALT) 50 U/L 12-78 N N ote: Change in REFERENCE RANGE due to new reagent method. ALKALINE PHOSPHATASE TOTAL (test code = ALKP) 92 U/L 38-126 N [id number] 22:18:00* Test Item Value Reference Range Interpretation Comments LIPASE (test code = LIP) 591 U/L 128-270 H [id number] 22:16:00* Test Item Value Reference Range Interpretation Comments ALCOHOL (test code = ALC) < 3 mg/dL 0.0-3.0 N -- INTERPRETIVE DATA NOTE: POSITIVE SCREENING RESULTS SHOULD BE CONSIDERED PRESUMPTIVE.WHEN COLLECTED FOR MEDICAL PURPOSES ONLY. SPECIMEN WILL NOTBE COLLECTED BY CHAIN OF CUSTODY.IF A CONFIRMATION OF POSITIVE RESULTS IS DESIRED, ACONFIRMATION TEST MUST BE REQUESTED BY THE PHYSICIAN AT ANADDITIONAL CHARGE TO THE PATIENT. URINALYSIS [id number] 22:09:00* Test Item Value Reference Range Interpretation Comments UA COLOR (test code = COLU) DARK YELLOW YELLOW A UA APPEARANCE (test code = APPU) CLOUDY CLEAR A UA GLUCOSE DIPSTICK (test code = DGLUU) 1000 (3+) mg/dL NEGATIVE A UA BILIRUBIN DIPSTICK (test code = BILU) NEGATIVE mg/dL NEGATIVE UA KETONE DIPSTICK (test code = KETU) 5 (Trace) mg/dL NEGATIVE A UA SPECIFIC GRAVITY (test code = SGU) 1.015 1.001-1.035 UA BLOOD DIPSTICK (test code = DOILIA) 10 (Trace) Brett/uL NEGATIVE A UA PH DIPSTICK (test code = KEYA) 6.5 5.0-8.0 UA PROTEIN DIPSTICK (test code = PROU) 15 (TRACE) mg/dL Neg-15 A UA UROBILINIOGEN DIPSTICK (test code = URO) 4 mg/dL (2+) mg/dL 0.0 -0.2 A UA NITRITE DIPSTICK (test code = JAS) POSITIVE NEGATIVE UA LEUKOCYTE ESTERASE DIPSTICK (test code = LEUU) 100 Chris/uL (1+) u L NEGATIVE A UA WBC (test code = WBCU) 11-20 per HPF 0-5 A UA RBC (test code = RBCU) 1-3 per HPF 0-5 UA EPITHELIAL CELLS (test code = EPIU) Many (>10/hpf) per HPF Few A UA BACTERIA (test code = BACU) LOADED per HPF NONE A UA YEAST (test code = YEASTU) FEW per HPF NONE A Urine Source? Clean CatchCOMPREHENSIVE METABOLIC [id number] 22:09:00* Test Item Value Reference Range Interpretation Comments SODIUM (test code = NA) 137 mmol/L 136-145 N POTASSIUM (test code = K) 4.4 mmol/L 3.5-5.1 N CHLORIDE (test code = CL) 98 mmol/L 101-109 L CARBON DIOXIDE (test code = CO2) 33.2 mmol/L 21-32 H ANION GAP (test code = GAP) 10 mmol/L 10-20 N GLUCOSE (test code = GLU) 253 mg/dL 74-106 H BLOOD UREA NITROGEN (test code = BUN) 16 mg/dL 3-21 N CREATININE (test code = CREAT) 1.05 mg/dL 0.55-1.3 N BUN/CREATININE RATIO (test code = BUN/CREA) 15.2 10-20 N TOTAL PROTEIN (test code = PROT) gram/dL 6.4-8.2 ALBUMIN (test code = ALB) g/dL 3.4-5.0 GLOBULIN (test code = GLOB) g/dL 2.7-4.2 ALBUMIN/GLOBULIN RATIO (test code = A/G) 0.75-1.50 CALCIUM (test code = CA) 8.5 mg/dL 8.4-10.2 N BILIRUBIN TOTAL (test code = BILT) mg/dL 0.2-1.2 SGOT/AST (test code = AST) IUnit/L 15-37 SGPT/ALT (test code = ALT) U/L 10-69 ALKALINE PHOSPHATASE TOTAL (test code = ALKP) IUnit/L 45-117 [id number] 22:09:00* Test Item Value Reference Range Interpretation Comments LIPASE (test code = LIP) Unit/L 144-286 - XR CHEST 1 [id number] 22:06:00 Name: ORALIA CM [facility] : 1960 Age/S:59 /F [address] [facility] Unit#:[id number] [place]: [place] [address] Phys: Bertha Monson MD Dis Date: PHONE #: [phone] Status: PRE ER FAX #: [phone] Exam Date: 10/18/2019 Reason: FEVER EXAMS: CPT CODE: [id number] XR CHEST 1 V 92070 HISTORY: Fever. COMPARISON: April 20, 2019. Location: . No acute infiltrates, effusion or congestion is noted. Mild cardiomegaly. IMPRESSION: No acute infiltrates, effusion or congestion. at 2206 Reported and signed by: Stephan Ferraro M.D. CC: Ernesto Henson Technologist: HENRIQUE ESQUIVEL CT Trnscrpt Data: 10/18/2019 (2205) t.JAQUELINR.TH4 Orig Print D/T: S: 10/18/2019 () PAGE 1 Signed Report CBC W/AUTO [id number] 21:56:00* Test Item Value Reference Range Interpretation Comments WHITE BLOOD CELL (test code = WBC) 6.8 K/mm3 4.5-12.5 N RED BLOOD CELL (test code = RBC) 4.43 mill/mm3 3.7-5.2 N HEMOGLOBIN (test code = HGB) 12.8 gram/dL 11.5-15.5 N HEMATOCRIT (test code = HCT) 39.0 % 36.0-46.0 N MEAN CELL VOLUME (test code = MCV) 88.0 fL 80-98 N MEAN CELL HGB (test code = MCH) 28.9 picogram 27.0-33.0 N MEAN CELL HGB CONCETRATION (test code = MCHC) 32.8 gram/dL 33.0-36. 0 L RED CELL DISTRIBUTION WIDTH (test code = RDW) 12.7 % 11.6-16. 2 N RED CELL DISTRIBUTION WIDTH SD (test code = RDW-SD) 41.2 fL 37 .0-51.0 N PLATELET COUNT (test code = PLT) 163 K/mm3 150-450 N MEAN PLATELET VOLUME (test code = MPV) 10.0 fL 6.7-11.0 N NEUTROPHIL % (test code = NT%) 80.6 % 39.0-69.0 H LYMPHOCYTE % (test code = LY%) 9.9 % 25.0-55.0 L MONOCYTE % (test code = MO%) 8.9 % 0.0-10.0 N EOSINOPHIL % (test code = EO%) 0.1 % 0.0-5.0 N BASOPHIL % (test code = BA%) 0.4 % 0.0-1.0 N NEUTROPHIL # (test code = NT#) 5.43 K/mm3 1.8-7.7 N LYMPHOCYTE # (test code = LY#) 0.67 K/mm3 1.0-5.0 L MONOCYTE # (test code = MO#) 0.60 K/mm3 0-0.8 N EOSINOPHIL # (test code = EO#) 0.01 K/mm3 0.0-0.5 N BASOPHIL # (test code = BA#) 0.03 K/mm3 0.0-0.2 N - XR RIBS UNI W/CXR 3+V [id number] 20:50:00 Name: ORALIA CMY [facility] : 1960 Age/S:59 /F [address] [facility] Unit#:[id number] Loc: [place] [address] Phys: Les Hicks MD Dis Date: PHONE #: [phone] Status: REG ER FAX #: [phone] Exam Date: 04/20/2019 Reason: Chest wall pain EXAMS: CPT CODE: [id number] XR RIBS UNI W/CXR 3+[place] [address] REASON FOR EXAM: Chest wall pain EXAM ORDER DATE: 04/20/2019 8:00 PM Ordering:Les Hicks MD Attending:Les Hicks MD Location:[facility] PROCEDURE: - XR RIBS UNI W/CXR 3+V LT FINDINGS: 5 views of the frontal view of the chest and left ribs were obtained. The osseous structures are unremarkable in size and shape. No evidence of pneumothorax or hemothorax. No evidence of displaced rib fracture. IMPRESSION: Unremarkable left ribs at 2049 Reported and signed by: Remberto Diop M.D. CC: Les Hicks MD; Ernesto Henson Technologist: RENALDO GARZON RT(R),CT Trnscrpt Data: 04/20/2019 (2049) t.CRISS.VTL Orig Print D/T: S: 04/20/2019 (2052) PAGE 1 Signed Report URINALYSIS [id number] 12:01:00* Test Item Value Reference Range Interpretation Comments UA COLOR (test code = COLU) YELLOW YELLOW UA APPEARANCE (test code = APPU) HAZY CLEAR A UA GLUCOSE DIPSTICK (test code = DGLUU) 250 (2+) mg/dL NEGATIVE A UA BILIRUBIN DIPSTICK (test code = BILU) NEGATIVE mg/dL NEGATIVE UA KETONE DIPSTICK (test code = KETU) neg mg/dL NEGATIVE UA SPECIFIC GRAVITY (test code = SGU) 1.025 1.001-1.035 UA BLOOD DIPSTICK (test code = ODILIA) neg Brett/uL NEGATIVE UA PH DIPSTICK (test code = KEYA) 5.0 5.0-8.0 UA PROTEIN DIPSTICK (test code = PROU) neg mg/dL Neg-15 UA UROBILINIOGEN DIPSTICK (test code = URO) norm mg/dL 0.0-0.2 UA NITRITE DIPSTICK (test code = JAS) POSITIVE NEGATIVE UA LEUKOCYTE ESTERASE DIPSTICK (test code = LEUU) 25 Chris/uL (Tra ce) uL NEGATIVE A UA WBC (test code = WBCU) 5-10 per HPF 0-5 A UA RBC (test code = RBCU) 0-3 per HPF 0-5 UA EPITHELIAL CELLS (test code = EPIU) Moderate (5-10/hpf) per HPF Few UA BACTERIA (test code = BACU) MANY per HPF NONE A Urine Source? Clean CatchURINALYSIS [id number] 11:47:00* Test Item Value Reference Range Interpretation Comments UA COLOR (test code = COLU) YELLOW YELLOW UA APPEARANCE (test code = APPU) HAZY CLEAR A UA GLUCOSE DIPSTICK (test code = DGLUU) 250 (2+) mg/dL NEGATIVE A UA BILIRUBIN DIPSTICK (test code = BILU) NEGATIVE mg/dL NEGATIVE UA KETONE DIPSTICK (test code = KETU) neg mg/dL NEGATIVE UA SPECIFIC GRAVITY (test code = SGU) 1.025 1.001-1.035 UA BLOOD DIPSTICK (test code = ODILIA) neg Brett/uL NEGATIVE UA PH DIPSTICK (test code = KEYA) 5.0 5.0-8.0 UA PROTEIN DIPSTICK (test code = PROU) neg mg/dL Neg-15 UA UROBILINIOGEN DIPSTICK (test code = URO) norm mg/dL 0.0-0.2 UA NITRITE DIPSTICK (test code = JAS) POSITIVE NEGATIVE UA LEUKOCYTE ESTERASE DIPSTICK (test code = LEUU) 25 Chris/uL (Tra ce) uL NEGATIVE A UA WBC (test code = WBCU) per HPF 0-5 UA RBC (test code = RBCU) per HPF 0-5 UA EPITHELIAL CELLS (test code = EPIU) per HPF Few UA BACTERIA (test code = BACU) per HPF NONE Urine Source? Clean [id number] 11:09:00* Test Item Value Reference Range Interpretation Comments D-DIMER (test code = DDIMER) 184 ng/ml < 600 BASIC METABOLIC [id number] 11:09:00* Test Item Value Reference Range Interpretation Comments SODIUM (test code = NA) 137 mmol/L 135-148 N POTASSIUM (test code = K) 4.2 mmol/L 3.5-5.1 N CHLORIDE (test code = CL) 99 mmol/L 101-109 L CARBON DIOXIDE (test code = CO2) 32.4 mmol/L 21-32 H ANION GAP (test code = GAP) 10 mmol/L 10-20 N GLUCOSE (test code = GLU) 259 mg/dL 74-106 H BLOOD UREA NITROGEN (test code = BUN) 13 mg/dL 3-21 N GLOMERULAR FILTRATION RATE (test code = GFR) > 60 mL/min >=60 Estimated GFR by using Modified MDRD formula.Chronic kidney disease is defined as either kidney damageor GFR <60 mL/min/1.73 m2 for >3 months. CREATININE (test code = CREAT) 0.77 mg/dL 0.55-1.3 N BUN/CREATININE RATIO (test code = BUN/CREA) 16.9 10-20 N CALCIUM (test code = CA) 8.6 mg/dL 8.4-10.2 N HEPATIC FUNCTION [id number] 11:09:00* Test Item Value Reference Range Interpretation Comments TOTAL PROTEIN (test code = PROT) 6.9 g/dL 6.5-8.4 N ALBUMIN (test code = ALB) 3.1 g/dL 3.4-4.8 L GLOBULIN (test code = GLOB) 3.8 G/DL 1-10 N ALBUMIN/GLOBULIN RATIO (test code = A/G) 0.8 RATIO 0.75-1.50 N BILIRUBIN TOTAL (test code = BILT) 0.60 mg/dL 0.0-1.0 N BILIRUBIN DIRECT (test code = BILD) 0.20 mg/dL 0.0-0.30 N SGOT/AST (test code = AST) 27 U/L 6-32 N SGPT/ALT (test code = ALT) 25 U/L 12-78 N N ote: Change in REFERENCE RANGE due to new reagent method. ALKALINE PHOSPHATASE TOTAL (test code = ALKP) 83 U/L 38-126 N CREATINE KINASE (CK)2019-03-31 11:09:00* Test Item Value Reference Range Interpretation Comments CREATINE KINASE (CK) (test code = CK) 90 U/L 26-192 N [id number] 11:09:00* Test Item Value Reference Range Interpretation Comments MAGNESIUM (test code = MAG) 1.6 mg/dL 1.6-2.3 N [id number] 11:09:00* Test Item Value Reference Range Interpretation Comments TROPONIN-I (test code = TROPI) <0.015 ng/mL 0.00-0.056 N - XR PELVIS 1/2 [id number] 11:05:00 Name: ORALIA CM [facility] : 1960 Age/S:59 /F [address] [facility] Unit#:[id number] [place]: [place] [address] Phys: Julian Waggoner MD Dis Date: PHONE #: [phone] Status: REG ER FAX #: [phone] Exam Date: 03/31/2019 Reason: fall l hip pain EXAMS: CPT CODE: [id number] XR PELVIS 1/2 VIEWS 92877 HISTORY: Fall and pain. Location: [facility]. Single view chest: COMPARISON: March 31, 2009 124, 2017. No acute infiltrates, effusion or congestion is noted. Mild cardiomegaly. IMPRESSION: No acute infiltrates, effusion or congestion. Single view pelvis: No acute fracture or dislocation. Symphysis is well opposed with marginal osteophytes. Hip joints are narrowed bilaterally without AVN. Trabecular pattern and mineralization are normal. SI joints are preserved. DJD of the lower lumbar spine. IMPRESSION: No acute fracture or dislocation. Narrowed hip joints without AVN. at 1105 Reported and signed by: Stephan Ferraro M.D. CC: Ernesto Henson; Julian Waggoner MD Technologist: DANIAL HOFFMAN, RT(R),CT Trnscrpt Data: 03/31/2019 (6512) [id number].TH4 Orig Print D/T: S: 03/31/2019 (7320) PAGE 1 Signed R eport - XR CHEST 1 [id number] 11:05:00 Name: ORALIA CM [facility] : 1960 Age/S:59 /F [address] [facility] Unit#:[id number] Loc: [place], [place] [address] Phys: Davida Waggoner MD Dis Date: PHONE #: [phone] Status: REG ER FAX #: [phone] Exam Date: 03/31/2019 Re ason: WEAKNESS EXAMS: CPT CODE: [id number] XR CHEST 1 V 64009 HISTORY: Fall and pain. Location: [facility]. Single view chest: COMPARIS ON: March 31, 2009 124, 2017. No acute infiltrates, effusion or congestion is noted. Mild cardiomegaly. IMPRESSION: No acute infiltrates, effusion or congestion. Single view pelvis: No acute fracture or dislocation. Symphysis is well opposed with marginal osteophytes. Hip joints are brandt rowed bilaterally without AVN. Trabecular pattern and mineralization are normal. SI joints are preserved. DJD of the lower lumbar spine. IMPRESSION: No acute fracture or dislocation. Narro wed hip joints without AVN. at 1105 Reported and signed by: Stephan villa M.D. CC: Ernesto Henson; Julian Waggoner MD Technologist: DANIAL HOFFMAN, RT(R),CT Trnsct Data: 03/31/2019 (9019) t.SDR.TH4 Orig Print D/T: S: 03/31/2019 (2649) PAGE 1 Signed R eport BASIC METABOLIC [id number] 10:58:00* Test Item Value Reference Range Interpretation Comments SODIUM (test code = NA) 137 mmol/L 135-148 N POTASSIUM (test code = K) 4.2 mmol/L 3.5-5.1 N CHLORIDE (test code = CL) 99 mmol/L 101-109 L CARBON DIOXIDE (test code = CO2) 32.4 mmol/L 21-32 H ANION GAP (test code = GAP) 10 mmol/L 10-20 N GLUCOSE (test code = GLU) 259 mg/dL 74-106 H BLOOD UREA NITROGEN (test code = BUN) 13 mg/dL 3-21 N GLOMERULAR FILTRATION RATE (test code = GFR) > 60 mL/min >=60 Estimated GFR by using Modified MDRD formula.Chronic kidney disease is defined as either kidney damageor GFR <60 mL/min/1.73 m2 for >3 months. CREATININE (test code = CREAT) 0.77 mg/dL 0.55-1.3 N BUN/CREATININE RATIO (test code = BUN/CREA) 16.9 10-20 N CALCIUM (test code = CA) 8.6 mg/dL 8.4-10.2 N HEPATIC FUNCTION [id number] 10:58:00* Test Item Value Reference Range Interpretation Comments TOTAL PROTEIN (test code = PROT) gram/dL 6.4-8.2 ALBUMIN (test code = ALB) g/dL 3.4-5.0 GLOBULIN (test code = GLOB) g/dL 2.7-4.2 ALBUMIN/GLOBULIN RATIO (test code = A/G) 0.75-1.50 BILIRUBIN TOTAL (test code = BILT) mg/dL 0.2-1.2 BILIRUBIN DIRECT (test code = BILD) mg/dL 0.0-0.20 SGOT/AST (test code = AST) IUnit/L 15-37 SGPT/ALT (test code = ALT) U/L 10-69 ALKALINE PHOSPHATASE TOTAL (test code = ALKP) IUnit/L 45-117 CREATINE KINASE (CK)2019-03-31 10:58:00* Test Item Value Reference Range Interpretation Comments CREATINE KINASE (CK) (test code = CK) IUnit/L 26-208 [id number] 10:58:00* Test Item Value Reference Range Interpretation Comments MAGNESIUM (test code = MAG) mg/dL 1.8-2.4 [id number] 10:58:00* Test Item Value Reference Range Interpretation Comments TROPONIN-I (test code = TROPI) ng/mL 0-0.045 - CT HEAD/BRAIN W/O [id number] 10:52:00 Name: ORALIA CM [facility] : 1960 Age/S: 59 / F [address] [facility] Unit #: [id number] Loc: [place] [address] Phys: Julian Waggoner MD Acct: [id number] Dis Date: Status: REG ER PHONE #: [phone] Exam Date: 03/31/2019 1044 FAX #: [phone] Reason: dizziness fall EXAMS: CPT CODE: [id number] CT HEAD/BRAIN W/O CONT 22437 HISTORY: Fall and pain. COMPARISON: None available. CT brain without contrast Automated exposure control. Location: [facility]. No acute intracranial bleeds or extra- axial collections are noted. No acute territorial vascular infarction is noted. The sulci, gyri, ventricles and subarachnoid spaces and the basilar cisterns are normal for patient's age. No herniation or hydrocephalus or midline shift is noted. Mild periventricular ischemic gliosis is noted. Age-appropriate atrophy is noted as well. Portions of the visualized paranasal sinuses are normal. No obvious bony calvarial defect is noted. IMPRESSION: No acute intracranial bleeds or extra-axial colle ctions. No acute territorial vascular infarction. No herniation or hydrocephalus or midline shift. Chronic white matter ischemic disease and atrophy . El ectronically Signed by Smith Ferraro on 03/31/2019 at 1052 Reported and signed by: Stephan Ferraro M.D. CC: Ernesto Hneson; Julian Waggoner MD Technologist:DANIAL HOFFMAN, RT(R),CT CTDI: DLP: Trnscb Date/Time: 03/31/2019 (8222) t.SDR.TH4 Orig Print D/T: S: 03/31/2019 (5507) PAGE 1 Signed Report CBC W/O [id number] 10:51:00 * Test Item Value Reference Range Interpretation Comments WHITE BLOOD CELL (test code = WBC) 4.7 K/mm3 4.5-12.5 N RED BLOOD CELL (test code = RBC) 4.69 mill/mm3 3.7-5.2 N HEMOGLOBIN (test code = HGB) 12.9 gram/dL 11.5-15.5 N HEMATOCRIT (test code = HCT) 39.6 % 36.0-46.0 N MEAN CELL VOLUME (test code = MCV) 84.4 fL 80-98 N MEAN CELL HGB (test code = MCH) 27.5 picogram 27.0-33.0 N MEAN CELL HGB CONCETRATION (test code = MCHC) 32.6 gram/dL 33.0-36. 0 L RED CELL DISTRIBUTION WIDTH (test code = RDW) 12.8 % 11.6-16. 2 N RED CELL DISTRIBUTION WIDTH SD (test code = RDW-SD) 39.8 fL 37 .0-51.0 N PLATELET COUNT (test code = PLT) 174 K/mm3 150-450 N MEAN PLATELET VOLUME (test code = MPV) 9.5 fL 6.7-11.0 N Random Vancomycin [id number] 08:17:00* Test Item Value Reference Range Interpretation Comments Random Vancomycin Level (test code = 36557-6) 6.5 [facility] HospitalBedside [id number] 08:14:00* Test Item Value Reference Range Interpretation Comments Bedside Glucose (test code = 76083-5) 92 70-120 Meter ID: [id number] Memorial HospitalWound Culture 2018-11-13 06:32:00* Test Item Value Reference Range Interpretation Comments Wound Culture (test code = 6462-6) Organism: STAPHYLOCOCCUS AUREUS [facility] HospitalWhite Blood [id number] 06:47:00* Test Item Value Reference Range Interpretation Comments White Blood Count (test code = 6690-2) 4.26 4.8-10.8 L [facility] HospitalRed Blood [id number] 06:47:00* Test Item Value Reference Range Interpretation Comments Red Blood Count (test code = 789-8) 3.82 3.6-5.1 [facility] HospitalHemoglobin2019-08-14 06:47:00* Test Item Value Reference Range Interpretation Comments Hemoglobin (test code = 00251-4) 10.7 12.0-16.0 L [facility] HospitalHematocrit2019-08-14 06:47:00* Test Item Value Reference Range Interpretation Comments Hematocrit (test code = 4544-3) 33.7 34.2-44.1 L [facility] HospitalMean Corpuscular Ebwwka7300-06-31 06:47:00* Test Item Value Reference Range Interpretation Comments Mean Corpuscular Volume (test code = 787-2) 88.2 81-99 [facility] HospitalMean Corpuscular [id number] 06:47:00* Test Item Value Reference Range Interpretation Comments Mean Corpuscular Hemoglobin (test code = 785-6) 28.0 28-32 [facility] HospitalMean Corpuscular Hemoglobin Concent 2018-11-12 06:47:00* Test Item Value Reference Range Interpretation Comments Mean Corpuscular Hemoglobin Concent (test code = 786-4) 31.8 31-35 [facility] HospitalRed Cell Distribution [id number] 06:47:00* Test Item Value Reference Range Interpretation Comments Red Cell Distribution Width (test code = 85254-4) 12.6 11.7 -14.4 [facility] HospitalPlatelet [id number] 06:47:00* Test Item Value Reference Range Interpretation Comments Platelet Count (test code = 777-3) 299 140-360 [facility] HospitalNeutrophils (%) (Auto)2018-11-12 06:47:00 * Test Item Value Reference Range Interpretation Comments Neutrophils (%) (Auto) (test code = 25530-4) 52.0 38.7-80.0 [facility] HospitalLymphocytes (%) (Auto)2018-11-12 06:47:00 * Test Item Value Reference Range Interpretation Comments Lymphocytes (%) (Auto) (test code = 736-9) 29.3 18.0-39.1 [facility] HospitalMonocytes (%) (Auto)2018-11-12 06:47:00* Test Item Value Reference Range Interpretation Comments Monocytes (%) (Auto) (test code = 5905-5) 13.1 4.4-11.3 H [facility] HospitalEosinophils (%) (Auto)2018-11-12 06:47:00 * Test Item Value Reference Range Interpretation Comments Eosinophils (%) (Auto) (test code = 713-8) 3.3 0.0-6.0 [facility] HospitalBasophils (%) (Auto)2018-11-12 06:47:00* Test Item Value Reference Range Interpretation Comments Basophils (%) (Auto) (test code = 706-2) 0.7 0.0-1.0 [facility] HospitalIM GRANULOCYTES %2018-11-12 06:47:00* Test Item Value Reference Range Interpretation Comments IM GRANULOCYTES % (test code = IM GRANULOCYTES %) 1.6 0.0- 1.0 H [facility] HospitalNeutrophils # (Auto)2018-11-12 06:47:00* Test Item Value Reference Range Interpretation Comments Neutrophils # (Auto) (test code = 751-8) 2.2 2.1-6.9 [facility] HospitalLymphocytes # (Auto)2018-11-12 06:47:00* Test Item Value Reference Range Interpretation Comments Lymphocytes # (Auto) (test code = 31818-3) 1.3 1.0-3.2 [facility] HospitalMonocytes # (Auto)2018-11-12 06:47:00* Test Item Value Reference Range Interpretation Comments Monocytes # (Auto) (test code = 742-7) 0.6 0.2-0.8 [facility] HospitalEosinophils # (Auto)2018-11-12 06:47:00* Test Item Value Reference Range Interpretation Comments Eosinophils # (Auto) (test code = 711-2) 0.1 0.0-0.4 [facility] HospitalBasophils # (Auto)2018-11-12 06:47:00* Test Item Value Reference Range Interpretation Comments Basophils # (Auto) (test code = 704-7) 0.0 0.0-0.1 [facility] HospitalAbsolute Immature Granulocyte (auto 2018-11-12 06:47:00* Test Item Value Reference Range Interpretation Comments Absolute Immature Granulocyte (auto (ofelia t code = Absolute Immature Granulocyte (auto) 0.07 0-0.1 [facility]odium Cnpcu7730-40-13 06:37:00* Test Item Value Reference Range Interpretation Comments Sodium Level (test code = 2951-2) 136 136-145 [facility] HospitalPotassium Mtqdp1936-67-10 06:37:00* Test Item Value Reference Range Interpretation Comments Potassium Level (test code = 2823-3) 4.0 3.5-5.1 [facility] HospitalChloride Fcgvy6445-61-79 06:37:00* Test Item Value Reference Range Interpretation Comments Chloride Level (test code = 2075-0) 98 98-107 [facility] HospitalCarbon Dioxide Jyeqf7443-29-58 06:37:00* Test Item Value Reference Range Interpretation Comments Carbon Dioxide Level (test code = 2028-9) 30 22-29 H [facility] HospitalAnion Dsb8699-74-60 06:37:00* Test Item Value Reference Range Interpretation Comments Anion Gap (test code = 80699-1) 12.0 8-16 [facility] HospitalBlood Urea Jyuuxirj7645-40-98 06:37:00* Test Item Value Reference Range Interpretation Comments Blood Urea Nitrogen (test code = 3094-0) 11 7-26 [facility] HospitalCreatinine2019-08-14 06:37:00* Test Item Value Reference Range Interpretation Comments Creatinine (test code = 2160-0) 0.71 0.57-1.11 [facility] HospitalBUN/Creatinine Avjqb1114-19-74 06:37:00* Test Item Value Reference Range Interpretation Comments BUN/Creatinine Ratio (test code = 3097-3) 15 6-25 [facility] HospitalEstimat Glomerular Filtration Rate 2018-11-12 06:37:00* Test Item Value Reference Range Interpretation Comments Estimat Glomerular Filtration Rate (test code = 613776886) > 60 >60 Ranges were taken from the National Kidney Disease Education Program and the [facility] literature.Reference ranges:60 or greater: Nieofm45-83 ( for 3 consecutive months): Chronic kidney disease 15 or less: Kidney failureGonzales Memorial HospitalGlucose Awlyy5339-53-83 06:37:00* Test Item Value Reference Range Interpretation Comments Glucose Level (test code = JUX6334) 94 74-118 [facility] HospitalCalcium Dhlgk2195-09-83 06:37:00* Test Item Value Reference Range Interpretation Comments Calcium Level (test code = 05377-0) 8.3 8.4-10.2 L [facility] HospitalBlood Fofqvsg8590-47-10 18:28:00* Test Item Value Reference Range Interpretation Comments Blood Culture (test code = 39722770) NO GROWTH AFTER 5 DAYS, FINAL REPORT [facility] HospitalUrine Txlblfj0618-32-25 06:29:00* Test Item Value Reference Range Interpretation Comments Urine Culture (test code = 630-4) Organism: SISSY KRUSEI [facility] HospitalFree Urucedeza5949-68-17 04:55:00* Test Item Value Reference Range Interpretation Comments Free Thyroxine (test code = 3024-7) 1.15 0.8-1.8 [facility] HospitalThyroid Stimulating Hormone (TSH) 2018-11-07 04:55:00* Test Item Value Reference Range Interpretation Comments Thyroid Stimulating Hormone (TSH) (test code = 59612-0) 0.747 0.350-4.940 [facility] HospitalB-Type Natriuretic Ljeicql7713-97-90 04:36:00* Test Item Value Reference Range Interpretation Comments B-Type Natriuretic Peptide (test code = 70682-9) 118.3 0-100 H [facility] HospitalHemoglobin A1c Cdvdhtl7103-05-06 04:33:00 * Test Item Value Reference Range Interpretation Comments Hemoglobin A1c Percent (test code = Hemoglobin A1c Percent) 9.4 4.0-7.0 [facility] HospitalMagnesium Ihwvj3848-34-32 04:32:00* Test Item Value Reference Range Interpretation Comments Magnesium Level (test code = 97762-8) 1.6 1.3-2.1 [facility] HospitalTriglycerides Cexsj2380-34-19 04:32:00* Test Item Value Reference Range Interpretation Comments Triglycerides Level (test code = 2571-8) 71 0-149 [facility] HospitalCholesterol Pdjpy1560-03-01 04:32:00* Test Item Value Reference Range Interpretation Comments Cholesterol Level (test code = 2093-3) 120 0-199 Less than 200 mg/dL Low Munt250 - 239 mg/dL Borderline Slou315 m g/dl and greater High Risk [facility] HospitalLDL Kjvcqinbrap3057-06-78 04:32:00* Test Item Value Reference Range Interpretation Comments LDL Cholesterol (test code = 2089-1) 64 60-130 [facility] HospitalHDL Cxjzdgwolod0047-95-78 04:32:00* Test Item Value Reference Range Interpretation Comments HDL Cholesterol (test code = 2085-9) 42 40-60 [facility] HospitalCholesterol/HDL Zplsy4723-34-94 04:32:00 * Test Item Value Reference Range Interpretation Comments Cholesterol/HDL Ratio (test code = 9830-1) 2.9 3.0-3.6 L [facility] HospitalErythrocyte Sedimentation Efta8155-86-79 13:28:00* Test Item Value Reference Range Interpretation Comments Erythrocyte Sedimentation Rate (test code = 4537-7) 72 0- 20 H [facility] HospitalCT BRAIN BF7136-91-30 09:31:00 [facility] [address] [address] Patient Name: ORALIA CM MR #: [id number] : 1960 Age/Sex: 58/F Req #: [id number] Adm Physician: ERNESTO HENSON MD 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 Esparza l and sagittal images reconstructed from the axial data. Dose modulation, ite rative reconstruction, and/or weight based adjustment of the mA/kV was utilize d to reduce the radiation dose to as low as reasonably achievable. Radi ation dose: Total DLP: 832 mGy*cm. Estimated effective dose: DLP x 0.015 Intravenous contrast: None Findings: Scalp: No abnormalities. Bone s: No fractures, blastic or lytic lesions. Brain sulci: Appropriate for age . Ventricles: Normal in size and configuration. No hydrocephalus. Extra-axia l spaces: No masses, no fluid collection. Parenchyma: A few scattered h ypodensities in the supratentorial white matter are nonspecific but most jessy tible with chronic small vessel ischemic changes. No mass, acute hemorrhage or acute cortical vascular insults. Sellar/suprasellar region: Partially CSF filled sella. Craniocervical junction: Patent foramen magnum. No Chiari one m alformation. Incidental findings: Right lens replacement presumably for previous cataract surgery. Atherosclerotic calcifications in the carotid sipho ns and intradural vertebral arteries. IMPRESSION: 1. No acute abno rmalities. 2. Mild chronic microvascular ischemic changes. Signed by: Dr Rob Hill M.D. 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 Urine WBC 2018-11-06 08:34:00* Test Item Value Reference Range Interpretation Comments Urine WBC (test code = 5821-4) 6-10 0-5 [facility] HospitalUrine DCL1855-16-09 08:34:00* Test Item Value Reference Range Interpretation Comments Urine RBC (test code = 43735-7) 0-5 0-5 [facility] HospitalUrine Zvqrxqkz7418-26-14 08:34:00* Test Item Value Reference Range Interpretation Comments Urine Bacteria (test code = 20667-2) MODERATE NONE [facility] HospitalUrine Epithelial Nxlbv7478-67-53 08:34:00 * Test Item Value Reference Range Interpretation Comments Urine Epithelial Cells (test code = 16708-9) RARE NONE [facility] HospitalUrine Cxqng8039-20-05 08:07:00* Test Item Value Reference Range Interpretation Comments Urine Color (test code = 5778-6) YELLOW YELLOW [facility] HospitalUrine Gaasobh1129-24-26 08:07:00* Test Item Value Reference Range Interpretation Comments Urine Clarity (test code = 74030-7) CLEAR CLEAR [facility] HospitalUrine Specific Vpjmzwq9327-26-02 08:07:00 * Test Item Value Reference Range Interpretation Comments Urine Specific [place] (test code = 5811-5) 1.020 1.010-1.02 5 [facility] HospitalUrine cY0137-41-83 08:07:00* Test Item Value Reference Range Interpretation Comments Urine pH (test code = 64626-1) 5.5 5-7 [facility] HospitalUrine Leukocyte Abxqtmca7214-67-02 08:07:00* Test Item Value Reference Range Interpretation Comments Urine Leukocyte Esterase (test code = 85595-4) NEGATIVE NEGATIV E [facility] HospitalUrine Vdtjtjz1934-23-45 08:07:00* Test Item Value Reference Range Interpretation Comments Urine Nitrite (test code = 62294-0) NEGATIVE NEGATIVE [facility] HospitalUrine Npvhcoh2110-38-14 08:07:00* Test Item Value Reference Range Interpretation Comments Urine Protein (test code = 58076-2) NEGATIVE NEGATIVE [facility] HospitalUrine Glucose (UA)2018-11-06 08:07:00* Test Item Value Reference Range Interpretation Comments Urine Glucose (UA) (test code = 69398-7) 3+ NEGATIVE [facility] HospitalUrine Btydhsh3077-19-56 08:07:00* Test Item Value Reference Range Interpretation Comments Urine Ketones (test code = 73185-3) TRACE NEGATIVE H [facility] HospitalUrine Tfffyfyygafn1011-42-53 08:07:00* Test Item Value Reference Range Interpretation Comments Urine Urobilinogen (test code = 12573-3) 0.2 0.2-1 [facility] HospitalUrine Uvpoprwaw0793-77-82 08:07:00* Test Item Value Reference Range Interpretation Comments Urine Bilirubin (test code = 1977-8) NEGATIVE NEGATIVE [facility] HospitalUrine Kqbvv8517-76-52 08:07:00* Test Item Value Reference Range Interpretation Comments Urine Blood (test code = 11295-2) NEGATIVE NEGATIVE [facility] HospitalCHEST SINGLE (PORTABLE)2018-11-05 19:50:00 [facility] [address] [address] Patient Name: ORALIA CM MR #: [id number] : 1960 Age/Sex: 58/F Req #: [id number] Adm Physician: Ordered by: DAAN INFANTE [employer]SE WORKER Report #: [id number] Location: ER Room/Bed: Procedure: [id number] D X/CHEST SINGLE (PORTABLE) Exam Date: 11/05/18 Exam T sydney: 1919 REPORT STATUS: Signed EXAMINATION: CHEST SINGLE (PORTABLE) INDICATION: ERMD ORDER [id number] 1920 Y COMPARISON: None FINDINGS: AP view TUBES and LINES: None. LUNGS: Lungs are well inflated. There is no e vidence of pneumonia or pulmonary edema. PLEURA: No pleural effusion or pneumothorax. HEART AND MEDIASTINUM: The cardiomediastinal silhouette is u nremarkable. BONES AND SOFT TISSUES: No acute osseous lesion. Soft ti ssues are unremarkable. UPPER ABDOMEN: No free air under the diaphragm. IMPRESSION: No acute thoracic abnormality. Signed by: Dr. Cathi Cage MD on 11/05/2018 7:50 PM Dictated By: ALFONSO CAGE MD Electro nically Signed By: ALFONSO CAGE MD on 11/05/181949 Transcribed By: MOLLY on 11/05/181949 COPY TO: ADAN INFANTE STOCK HOUSE WORKER CT ABDOMEN/PELVIS W 2018-11-05 19:40:[address] [address] Patient Name: ORALIA CM MR #: [id number] : 1960 Age/Sex: 58/F Req #: [id number] Adm Physician: Ordered by: ADAN INFANTE [employer] WORKER Report #: [id number] Location: ER Room/Bed: Procedure: [id number] C T/CT ABDOMEN/PELVIS W Exam Date: Exam Time: REPORT STATUS: Signed EXAM: CT Abdomen and Pelvis WITH contrast INDICATION: abd pain COMPARISON: None. TECHNIQUE: Abdomen and pelvis were scanned utilizing a multidetector helical scanner from the lung base to the pubic symphysis after administration of IV contrast. Coronal and sagittal reformations were obtained. Dose modulation, i terative reconstruction, and/or weight based adjustment of the mA/kV was utili zed to reduce the radiation dose to as low as reasonably achievable. Routine p rotocol was performed. Scan was performed when during portal venous phase. IV CONTRAST: 100 mL of Isovue-370 ORAL CONTRAST: None. COMPLICATIONS: None RADIATION DOSE: Total DLP: 1254.63 mGy*cm Estimated effective dose: (DLP x 0.015 x size factor) mSv CTDIvol has been reviewed. It is below the limits set by the Radiation Protocol Commi ttee (RPC). FINDINGS: LINES and TUBES: None. LOWER THORAX: Right lower lobe calcified granuloma. Otherwise, unremarkable. HEPATOBILIARY: He patomegaly. No focal hepatic lesions. No biliary ductal dilation. GALLB LADDER: Not visualized. SPLEEN: Splenomegaly. Several punctate calcified gr anulomas. PANCREAS: No focal masses or ductal dilatation. ADRENALS: No adrenal nodules KIDNEYS/URETERS: Kidneys enhance symmetrically. No hydronephrosis. No cystic or solid mass lesions. No stones. GI TRACT: No abnormal distention, wall thickening, or evidence of bowel obstruction. Appendix is normal. PELVIC ORGANS/BLADDER: Unremarkable. LYMPH NODES: No lymphadenopathy. VESSELS: Unremarkable. PERITONEUM / RETROPERITON EUM: No free air or fluid. BONES: Degenerative changes of the thoracolumbar spine. SOFT TISSUES: Persistent fat-containing periumbilical hernia measur ing 6.3 x 4.3 cm. There is adjacent abdominal wall gas containing collection m easuring 9.4 x 5.8 cm with adjacent moderate inflammation/edema of the abdomin al wall. IMPRESSION: 1. Fat-containing periumbilical jose ia with internal fat stranding. Adjacent approximately 9.4 cm abdominal wall g as containing fluid collection, concerning for developing abscess. Surrounding inflammation/edema. 2. Hepatosplenomegaly. Signed by: Dr. Alfonso Cage MD on 11/05/2018 7:50 PM Dictated By: ALFONSO CAGE MD Electronically Si gned By: ALFNOSO CAGE MD on 11/05/181949 Transcribed By: MOLLY on 11/05/181949 COPY TO: ADAN INFANTE [employer] WORKER Creatine Kinase KG7875-11-95 18:52:00* Test Item Value Reference Range Interpretation Comments Creatine Kinase MB (test code = 39071-0) 0.60 0-5.0 [facility] HospitalTroponin W9287-10-03 18:52:00* Test Item Value Reference Range Interpretation Comments Troponin I (test code = DRI7948) 0.004 0-0.300 [facility] HospitalTotal Ixnivixsz1077-74-61 18:43:00* Test Item Value Reference Range Interpretation Comments Total Bilirubin (test code = 1975-2) 1.1 0.2-1.2 [facility] HospitalAspartate Amino Transf (AST/SGOT) 2018-11-05 18:43:00* Test Item Value Reference Range Interpretation Comments Aspartate Amino Transf (AST/SGOT) (test code = Aspartate Amino Transf (AST/SGOT)) 31 5-34 [facility] HospitalAlanine Aminotransferase (ALT/SGPT) 2018-11-05 18:43:00* Test Item Value Reference Range Interpretation Comments Alanine Aminotransferase (ALT/SGPT) (test code = 1742-6) 27 0-55 [facility] HospitalTotal Dqwyzph7493-89-85 18:43:00* Test Item Value Reference Range Interpretation Comments Total Protein (test code = 2885-2) 6.6 6.5-8.1 [facility] HospitalAlbumin2019-08-07 18:43:00* Test Item Value Reference Range Interpretation Comments Albumin (test code = 1751-7) 2.7 3.5-5.0 L [facility] HospitalGlobulin2019-08-07 18:43:00* Test Item Value Reference Range Interpretation Comments Globulin (test code = 18930-0) 3.9 2.3-3.5 H [facility] HospitalAlbumin/Globulin Xsdom5752-60-50 18:43:00 * Test Item Value Reference Range Interpretation Comments Albumin/Globulin Ratio (test code = 1759-0) 0.7 0.8-2.0 L [facility] HospitalAlkaline Lkvvdyglfof5024-75-07 18:43:00* Test Item Value Reference Range Interpretation Comments Alkaline Phosphatase (test code = 6768-6) 84 40-150 [facility] HospitalCreatine Afrlzb7704-27-94 18:43:00* Test Item Value Reference Range Interpretation Comments Creatine Kinase (test code = 2157-6) 60 29-168 [facility] HospitalProthrombin Kwyw5615-38-31 18:39:00* Test Item Value Reference Range Interpretation Comments Prothrombin Time (test code = 5902-2) 14.8 11.9-14.5 H [facility] HospitalProthromb Time International Ratio 2018-11-05 18:39:00* Test Item Value Reference Range Interpretation Comments Prothromb Time International Ratio (test code = 6301-6) 1.11 Oral Anticoagulant Therapy INR Values:1. Low Intensity Therapy 1.5 - 2.02 . Moderate Intensity Therapy 2.0 - 3.03. High Intensity Therapy(1) 2.5 - 3. 54. High Intensity Therapy(2) 3.0 - 4.05. Panic Value INR > 5.0 [facility] HospitalActivated Partial Thromboplast Time 2018-11-05 18:39:00* Test Item Value Reference Range Interpretation Comments Activated Partial Thromboplast Time (test code = 35684-8) 36.6 23.8-35.5 H [facility] HospitalLactic Acid Ovrxf3148-53-18 18:39:00* Test Item Value Reference Range Interpretation Comments Lactic Acid Level (test code = Lactic Acid Level) 22.0 4.5- 19.8 Results repeated and called to SARA IQBAL at 1838 on 11/05/18 by DAVID CR. Read back and verified.[facility] HospitalBedside Blghcql1400-26-23 07:32:00* Test Item Value Reference Range Interpretation Comments Bedside Glucose (test code = 10962-7) 316 70-120 H Meter ID: [id number] Children's Hospital Houstonodium Level 2018-10-29 06:06:00* Test Item Value Reference Range Interpretation Comments Sodium Level (test code = 2951-2) 135 136-145 L [facility] HospitalPotassium Rzgvp3978-76-90 06:06:00* Test Item Value Reference Range Interpretation Comments Potassium Level (test code = 2823-3) 5.2 3.5-5.1 H [facility] HospitalChloride Upakw5662-15-15 06:06:00* Test Item Value Reference Range Interpretation Comments Chloride Level (test code = 2075-0) 97 98-107 L [facility] HospitalCarbon Dioxide Vekrd5066-81-59 06:06:00* Test Item Value Reference Range Interpretation Comments Carbon Dioxide Level (test code = 2028-9) 26 22-29 [facility] HospitalAnion Txo8143-92-24 06:06:00* Test Item Value Reference Range Interpretation Comments Anion Gap (test code = 51813-8) 17.2 8-16 H [facility] HospitalBlood Urea Kyeijdtu5091-39-42 06:06:00* Test Item Value Reference Range Interpretation Comments Blood Urea Nitrogen (test code = 3094-0) 17 7- [facility] HospitalCreatinine2019-07-31 06:06:00* Test Item Value Reference Range Interpretation Comments Creatinine (test code = 2160-0) 0.83 0.57-1.11 [facility] HospitalBUN/Creatinine Izhmh6498-05-91 06:06:00* Test Item Value Reference Range Interpretation Comments BUN/Creatinine Ratio (test code = 3097-3) 20 6-25 [facility] HospitalEstimat Glomerular Filtration Rate 2018-10-29 06:06:00* Test Item Value Reference Range Interpretation Comments Estimat Glomerular Filtration Rate (test code = 380905984) > 60 >60 Ranges were taken from the National Kidney Disease Education Program and the [facility] Kid[facility] Foundation literature.Reference ranges:60 or greater: Deqrlh93-55 ( for 3 consecutive months): Chronic kidney disease 15 or less: Kidney failureGonzales Memorial HospitalGlucose Dbvtb8228-17-47 06:06:00* Test Item Value Reference Range Interpretation Comments Glucose Level (test code = VPZ1960) 319 74-118 H [facility] HospitalCalcium Bypis5615-31-39 06:06:00* Test Item Value Reference Range Interpretation Comments Calcium Level (test code = 62596-6) 9.0 8.4-10.2 [facility] HospitalWhite Blood Rhuup5922-81-33 05:50:00* Test Item Value Reference Range Interpretation Comments White Blood Count (test code = 6690-2) 7.98 4.8-10.8 [facility] HospitalRed Blood Mfhpx4181-29-86 05:50:00* Test Item Value Reference Range Interpretation Comments Red Blood Count (test code = 789-8) 4.32 3.6-5.1 [facility] HospitalHemoglobin2019-07-31 05:50:00* Test Item Value Reference Range Interpretation Comments Hemoglobin (test code = 69391-7) 12.3 12.0-16.0 [facility] HospitalHematocrit2019-07-31 05:50:00* Test Item Value Reference Range Interpretation Comments Hematocrit (test code = 4544-3) 37.2 34.2-44.1 [facility] HospitalMean Corpuscular Cxlghs4301-08-97 05:50:00* Test Item Value Reference Range Interpretation Comments Mean Corpuscular Volume (test code = 787-2) 86.1 81-99 [facility] HospitalMean Corpuscular Fjdkizsbpn3780-89-84 05:50:00* Test Item Value Reference Range Interpretation Comments Mean Corpuscular Hemoglobin (test code = 785-6) 28.5 28-32 [facility] HospitalMean Corpuscular Hemoglobin Concent 2018-10-29 05:50:00* Test Item Value Reference Range Interpretation Comments Mean Corpuscular Hemoglobin Concent (test code = 786-4) 33.1 31-35 [facility] HospitalRed Cell Distribution Nxiyx4060-83-95 05:50:00* Test Item Value Reference Range Interpretation Comments Red Cell Distribution Width (test code = 44898-3) 12.5 11.7 -14.4 [facility] HospitalPlatelet Qcjfn7747-69-85 05:50:00* Test Item Value Reference Range Interpretation Comments Platelet Count (test code = 777-3) 180 140-360 [facility] HospitalNeutrophils (%) (Auto)2018-10-29 05:50:00 * Test Item Value Reference Range Interpretation Comments Neutrophils (%) (Auto) (test code = 95899-3) 71.7 38.7-80.0 [facility] HospitalLymphocytes (%) (Auto)2018-10-29 05:50:00 * Test Item Value Reference Range Interpretation Comments Lymphocytes (%) (Auto) (test code = 736-9) 16.5 18.0-39.1 L [facility] HospitalMonocytes (%) (Auto)2018-10-29 05:50:00* Test Item Value Reference Range Interpretation Comments Monocytes (%) (Auto) (test code = 5905-5) 10.9 4.4-11.3 [facility] HospitalEosinophils (%) (Auto)2018-10-29 05:50:00 * Test Item Value Reference Range Interpretation Comments Eosinophils (%) (Auto) (test code = 713-8) 0.0 0.0-6.0 [facility] HospitalBasophils (%) (Auto)2018-10-29 05:50:00* Test Item Value Reference Range Interpretation Comments Basophils (%) (Auto) (test code = 706-2) 0.3 0.0-1.0 [facility] HospitalIM GRANULOCYTES %2018-10-29 05:50:00* Test Item Value Reference Range Interpretation Comments IM GRANULOCYTES % (test code = IM GRANULOCYTES %) 0.6 0.0- 1.0 [facility] HospitalNeutrophils # (Auto)2018-10-29 05:50:00* Test Item Value Reference Range Interpretation Comments Neutrophils # (Auto) (test code = 751-8) 5.7 2.1-6.9 [facility] HospitalLymphocytes # (Auto)2018-10-29 05:50:00* Test Item Value Reference Range Interpretation Comments Lymphocytes # (Auto) (test code = 06505-7) 1.3 1.0-3.2 [facility] HospitalMonocytes # (Auto)2018-10-29 05:50:00* Test Item Value Reference Range Interpretation Comments Monocytes # (Auto) (test code = 742-7) 0.9 0.2-0.8 H [facility] HospitalEosinophils # (Auto)2018-10-29 05:50:00* Test Item Value Reference Range Interpretation Comments Eosinophils # (Auto) (test code = 711-2) 0.0 0.0-0.4 [facility] HospitalBasophils # (Auto)2018-10-29 05:50:00* Test Item Value Reference Range Interpretation Comments Basophils # (Auto) (test code = 704-7) 0.0 0.0-0.1 [facility] HospitalAbsolute Immature Granulocyte (auto 2018-10-29 05:50:00* Test Item Value Reference Range Interpretation Comments Absolute Immature Granulocyte (auto (ofelia t code = Absolute Immature Granulocyte (auto) 0.05 0-0.1 [facility] HoustonCR MAMM BILATERAL DOMINIQUE CAD DIGITAL 2018-04-14 16:43:19 - SCR MAMM BILATERAL DOMINIQUE CAD DIGITALBILATERAL DIGITAL SCREENING MAMMOGRAM 3D/2D WITH CAD: 03/28/2018CLINICAL: Asymptomatic. Digital breast tomosynthesis was performed in addition to routine CC and MLO views. Current mammographic images were evaluated by either a [employer] M-Vu or a [employer] CAD (computer aided detection system). Comparison is made to exams dated 01/28/2013 mammogram, 01/16/2012 mammogram, and 09/12/2010 mammogram - [facility]. There are scattered fibroglandular tissues in both breasts. There are benign calcifications in both breasts. No suspicious mass, architectural distortion, malignant type calcification, or lymph node abnormality detected. Breast architecture is stable compared to prior exams.IMPRESSION: BENIGNThere is no mammographic evidence of malignancy. Resume annual screening mammography in one year. Saba Turner M.D. cc/penrad:04/14/2018 16:43:19 Entry: cc - 04/15/2018 11:04:16Attending Technologist: Estefany Buck MM, [employer] [place] [employer] MammographyImaging Technologist: David Thompson MM, [facility] Mammographyletter sent: BIRADS 1-2 Normal Mammogram BI-RADS: 2 Benign
[2019-12-31] MEDS ORDERED: KETOROLAC TROMETHAMINE 30 MG/ML VIAL ONE (13:15)
[2019-12-31] MEDS ORDERED: NEOSTIGMINE 1 MG/ML 10ML VIAL ONE (13:15)
[2019-12-31] MEDS ORDERED: SEVOFLURANE INHAL SOLN 250 ML PEN BTL ONE (13:15)
[2019-12-31] MEDS ORDERED: CEFAZOLIN SOD 1 GM VIAL ONE (13:15)
[2019-12-31] MEDS ORDERED: ROCURONIUM BROMIDE 10 MG/ML 5ML VIAL IV ONE (13:15)
[2019-12-31] MEDS ORDERED: ONDANSETRON HCL INJ 2MG/ML 2ML 2 MG/ML VIAL ONE (13:15)
[2019-12-31] MEDS ORDERED: SUCCINYLCHOLINE CHLORIDE 20 MG/ML 10ML VIAL ONE (13:15)
[2019-12-31] MEDS ORDERED: PROPOFOL IV EMULSION 10 MG/ML 20 ML VIAL ONE (13:15)
[2019-12-31] MEDS ORDERED: LIDOCAINE HCL 2% LOCAL INJ 5 ML SDV VIAL INJ ONE (13:15)
[2019-12-31] MEDS ORDERED: DEXAMETHASONE SOD PHOS INJ 4 MG/ML VIAL ONE (13:15)
[2019-12-31] MEDS ORDERED: GLYCOPYRROLATE INJ 0.2 MG/ML VIAL ONE (13:15)
[2019-12-31] MEDS ORDERED: HYDROMORPHONE 0.2MG/ML-SOD CHL 30ML PCA SYRINGE IV ONE (13:43)
[2019-12-31 13:46] VITALS: BP 149/64
--- NOTE | 2019-12-31 13:46 | NUR ---
Received patient from PACU. Awake, alert and oriented. Kole wrap and cast on left arm. Patient is able to wiggle the left fingers. Respiration even and unlabored without SOB. VAMP LINER pump with dilaudid is active, patient is advised to use the VAMP LINER pump control if needed. Call light in reach.
[2019-12-31 14:03] VITALS: BP 149/64
[2019-12-31] MEDS ORDERED: KETAMINE HCL INJ 50 MG/ML 10 ML VIAL ONE (14:08)
[2019-12-31] MEDS ORDERED: FENTANYL CITRATE/PF 100MCG/2 ML INJ ONE (14:08)
[2019-12-31] MEDS ORDERED: MIDAZOLAM HCL 2 MG/2 ML VIAL ONE (14:08)
[2019-12-31] MEDS ORDERED: DEXTROSE 50% SYRINGE 50 ML IV PRN (16:00)
[2019-12-31] MEDS: SODIUM CHLORIDE 0.9% 1000ML 1,000 ML IV SCH (16:11)
[2019-12-31] MEDS: INSULIN LISPRO 100 UNIT/1 ML 3ML VIAL SQ SCH ×2 (16:30→21:00)
[2019-12-31 16:41] VITALS: BP 132/60
[2019-12-31] MEDS: CEFAZOLIN SOD 1 GM/NS 50ML 50 ML IV SCH (17:25)
[2019-12-31 20:00] VITALS: BP 138/47
[2020-01-01] VITALS: BP 153/59
[2020-01-01] MEDS: SODIUM CHLORIDE 0.9% 1000ML 1,000 ML IV SCH ×2 (02:47→06:41)
[2020-01-01] MEDS: CEFAZOLIN SOD 1 GM/NS 50ML 50 ML IV SCH ×2 (02:51→09:57)
[2020-01-01 04:00] VITALS: BP 168/66
[2020-01-01 05:28] LABS: HEMATOCRIT 35.5 % (34.2-44.1); HEMOGLOBIN 11.9 g/dL (12.0-16.0)
[2020-01-01] MEDS: INSULIN LISPRO 100 UNIT/1 ML 3ML VIAL SQ SCH ×2 (07:30→12:20)
[2020-01-01 07:46] VITALS: BP 160/56
[2020-01-01] MEDS ORDERED: GLIPIZIDE 5 MG TAB ER PO SCH (08:00)
[2020-01-01] MEDS ORDERED: AMLODIPINE BESYLATE 5 MG TAB PO SCH (09:00)
[2020-01-01] MEDS ORDERED: ENALAPRIL MALEATE 10 MG TAB PO SCH (09:00)
[2020-01-01] MEDS ORDERED: METFORMIN HCL 500 MG TAB CR PO SCH (09:00)
[2020-01-01 10:00] VITALS: BP 160/56
--- NOTE | 2020-01-01 11:46 | Consultation ---
DATE OF CONSULTATION: REASON FOR CONSULTATION: Postop medical management. HISTORY OF PRESENT ILLNESS: The patient is a 59-year-old, status post repair of a humeral fracture, who complains of some pain currently, but states it is controlled. REVIEW OF SYSTEMS: Denies any fever, chills, nausea, vomiting, headache, shortness of breath, or dizziness. PAST MEDICAL HISTORY: Significant for diabetes, hypertension, and hyperlipidemia. MEDICATIONS: See MAR. ALLERGIES: SHRIMP. SOCIAL HISTORY: Nonsmoker and nondrinker, . FAMILY HISTORY: Hypertension. PHYSICAL EXAMINATION: VITAL SIGNS: Temperature 96.9, pulse 98, blood pressure 153/59, sats 95% on room air. GENERAL: She is in no apparent distress, actually sitting up next to the bedside. NECK: Supple. CARDIOVASCULAR: Regular rate and rhythm. LUNGS: Clear to auscultation bilaterally. ABDOMEN: Good bowel sounds. Soft, nontender. EXTREMITIES: No clubbing or cyanosis. Right arm is in a brace. NEUROLOGIC: Nonfocal. ASSESSMENT/PLAN: 1. Right shoulder pain. Continue with postoperative care and pain management. 2. Diabetes. Continue current care and monitoring her sugars. 3. Hypertension. Continue with her medication. 4. Anemia. Check CBC. 5. Hyperlipidemia. Continue with her cholesterol medicine. Please see hospital chart for full details. MD AILEEN Callejas/WOODY /[phone]
[2020-01-01 12:31] VITALS: BP 147/61
--- NOTE | 2020-01-01 13:53 | NUR ---
Pt discharged home at this time. Pt is aox4 and able to verbalize needs. Pt denies any pain at time of discharge. Pt is verbalized understanding of all discharge instructions and follow up appointments. Dressing to left upper arm is dry and intact.
--- NOTE | 2020-01-04 22:30 | Operative Report ---
DATE OF PROCEDURE: 12/31/2019 SURGEON: Jai Sesay MD PREOPERATIVE DIAGNOSIS: Comminuted and displaced left distal 3rd humerus fracture. POSTOPERATIVE DIAGNOSIS: Comminuted and displaced left distal 3rd humerus fracture. OPERATIONS/PROCEDURES PERFORMED: The patient with an open reduction and internal fixation of the comminuted left distal 3rd humerus fracture. EXTRACTIVE METALLURGIST: None. ANESTHESIA: General endotracheal intubation anesthesia. IV FLUIDS: Per the anesthesia record. BRIEF DESCRIPTION OF THE PATIENT'S OPERATIVE PROCEDURE: Ms. Johnson was taken to the operating room and placed in supine position on the operating room table. Following induction of general anesthesia as well as endotracheal intubation, the patient was turned onto her right side. She was held in place with a well-padded burrell bag. An axillary roll was placed in the right chest wall. The patient's upper extremity was prepped and draped in standard surgical fashion. A curvilinear incision beginning in the mid aspect of the posterior arm and extending distally over the lateral epicondylar region of the humerus was carried through skin and subcutaneous tissues. Full thickness skin flaps were elevated medially and laterally exposing the triceps muscle. The triceps was then divided in line with the skin incision and a lateral window was created distally providing full access to the patient's posterior aspect of the humerus. In the proximal aspect of the dissection, care was taken to identify the radial nerve and protect the nerve throughout the remainder of the case. A window was created above the radial nerve to provide access to the plate at the time of plate fixation. The fracture site was identified and cleaned thoroughly. The wound was copiously irrigated. A butterfly fragment was identified and reduced to the proximal humerus. A single screw was used to provide compression across the fracture site and hold the piece in its reduced position. The distal fracture fragment was then reduced and held in place with a K-wire. A dynamic compression plate with a lateral condylar flare was chosen and contoured to the posterior aspect of the humerus. it was passed beneath the radial nerve and fluoroscopic evaluation demonstrated good cortical contact both proximal and distal to the fracture site. The plate was then affixed to the bone with combinations of cortical and locking screws. The position of the plate as well as the reduction of the fracture site was again assessed using fluoroscopy and found to be appropriate. the wound was then copiously irrigated. Triceps were repaired as was the lateral window. The remaining soft tissues were closed in a multilayer fashion. The patient was then placed in a multi-sided splint. She was then awakened and taken to the postanesthesia care in stable condition. MD SAUL Santo/WOODY /[id number]
== END 2020-01-01 13:59 | disposition home or self-care (01) ==
LOC: OR 05:56 → PACU V 11:00 → MED/SURG 13:37
PROVIDERS: ADMIT Specialist; ATTEND Specialist
DX: S42.422A Displaced comminuted supracondylar fracture without intercondylar fracture of left humerus, initial encounter for closed fracture (principal); I10 Essential (primary) hypertension; E11.9 Type 2 diabetes mellitus without complications; E78.5 Hyperlipidemia, unspecified; D64.9 Anemia, unspecified; G89.18 Other acute postprocedural pain
CPT/HCPCS: 24546; 36415 ×3; 76000; 80048; 82948 ×2; 85014; 85018; 93005; 97116; 97139 ×2; 97162; 97530; C1713 ×5; G0378 ×2; J0330; J0690 ×3; J1100; J1170; J1885; J2001; J2250; J2405; J2704; J2710; J3010; J7030 ×2; U0002; J1817

== ENCOUNTER 2020-02-08 09:49 | Observation (INO) | payer MEDICARE, OTHER ==
[2020-02-04 14:59] LABS: ANION GAP 16.5 mmol/L (8-16); BLOOD UREA NITROGEN 10 mg/dL (7-26); BUN/CREATININE RATIO 14 (6-25); CALCIUM 9.2 mg/dL (8.4-10.2); CARBON DIOXIDE 30 mmol/L (22-29); CHLORIDE 97 mmol/L (98-107); CREATININE, SERUM 0.73 mg/dL (0.57-1.11); EST GLOMERULAR FILTRATION RATE > 60 ML/MIN (60-); GLUCOSE 193 mg/dL (74-118); POTASSIUM 4.5 mmol/L (3.5-5.1); SODIUM 139 mmol/L (136-145)
[~2020-02-08] VITALS: Ht 172.7 cm; Wt 130.6 kg
[2020-02-08] MEDS ORDERED: CEFAZOLIN SOD 1 GM/NS 50ML 100 ML IV ONE (10:17)
[2020-02-08] MEDS ORDERED: LIDOCAINE 1% W/EPINEPHRINE 20 ML VIAL ONE (13:36)
[2020-02-08] MEDS ORDERED: MIDAZOLAM HCL 2 MG/2 ML VIAL ONE (13:40)
[2020-02-08] MEDS ORDERED: FENTANYL CITRATE/PF 100MCG/2 ML INJ ONE ×2 (13:40→17:43)
[2020-02-08] MEDS ORDERED: ONDANSETRON HCL INJ 2MG/ML 2ML 2 MG/ML VIAL ONE (14:18)
[2020-02-08] MEDS ORDERED: LIDOCAINE HCL 2% LOCAL INJ 5 ML SDV VIAL INJ ONE (14:18)
[2020-02-08] MEDS ORDERED: PROPOFOL IV EMULSION 10 MG/ML 20 ML VIAL ONE (14:18)
[2020-02-08] MEDS ORDERED: DEXAMETHASONE SOD PHOS INJ 4 MG/ML VIAL ONE (14:18)
[2020-02-08] MEDS ORDERED: LABETALOL HCL 5 MG/ML 20ML VIAL ONE (14:18)
[2020-02-08] MEDS ORDERED: SEVOFLURANE INHAL SOLN 250 ML PEN BTL ONE (14:18)
[2020-02-08] MEDS ORDERED: CEFAZOLIN SOD 1 GM VIAL ONE (14:18)
[2020-02-08] MEDS ORDERED: ROCURONIUM BROMIDE 10 MG/ML 5ML VIAL IV ONE (14:18)
[2020-02-08] MEDS ORDERED: ACETAMINOPHEN 1000 MG/100 ML IV PRN (17:15)
[2020-02-08] MEDS ORDERED: ONDANSETRON HCL INJ 2MG/ML 2ML 2 MG/ML VIAL IV PRN (17:15)
[2020-02-08] MEDS ORDERED: HYDROMORPHONE 0.2MG/ML-SOD CHL 30ML PCA SYRINGE IV PRN (17:15)
[2020-02-08] MEDS ORDERED: NALOXONE HCL INJ 0.4 MG/ML AMP IV PRN (17:15)
[2020-02-08 17:37] LABS: HEMATOCRIT 32.4 % (34.2-44.1); HEMOGLOBIN 10.3 g/dL (12.0-16.0)
[2020-02-08] MEDS ORDERED: HYDROMORPHONE 0.2MG/ML-SOD CHL 30ML PCA SYRINGE IV ONE (17:59)
[2020-02-08] MEDS ORDERED: METOCLOPRAMIDE HCL 10 MG/2ML VIAL ONE (18:24)
[2020-02-08 20:00] VITALS: BP 142/57
[2020-02-08] MEDS: CEFAZOLIN SOD 1 GM/NS 50ML 50 ML IV SCH (20:00)
[2020-02-08] MEDS ORDERED: DEXTROSE 50% SYRINGE 50 ML IV PRN ×2 (20:30)
[2020-02-08] MEDS: INSULIN REGULAR, HUMAN 100 UNIT/1 ML 3ML VIAL SQ SCH (21:00)
[2020-02-08] MEDS ORDERED: INSULIN REGULAR, HUMAN 100 UNIT/1 ML 3ML VIAL SQ SCH (21:00)
[2020-02-08 23:01] VITALS: BP 142/57
[2020-02-09] MEDS: SODIUM CHLORIDE 0.9% 1000ML 1,000 ML IV SCH ×3 (00:15→13:37)
[2020-02-09] MEDS: CEFAZOLIN SOD 1 GM/NS 50ML 50 ML IV SCH ×2 (04:00→12:05)
[2020-02-09 06:31] VITALS: BP 120/57
[2020-02-09 07:59] LABS: BASOPHILS % 0.3 % (0.0-1.0); HEMATOCRIT 32.7 % (34.2-44.1); HEMOGLOBIN 10.4 g/dL (12.0-16.0); LYMPHOCYTES # (AUTO) 2.2 (1.0-3.2); LYMPHOCYTES % 22.3 % (18.0-39.1); MEAN CORPUSCULAR HEMOGLOBIN 28.1 pg (28-32); MEAN CORPUSCULAR HGB CONC 31.8 g/dL (31-35); MEAN CORPUSCULAR VOLUME 88.4 fL (81-99); MONOCYTES # (AUTO) 1.2 (0.2-0.8); MONOCYTES % 11.9 % (4.4-11.3); NEUTROPHILS # (AUTO) 6.3 (2.1-6.9); NEUTROPHILS % 65.1 % (38.7-80.0); PLATELET COUNT 247 x10e3/uL (140-360); RED CELL DISTRIBUTION WIDTH 13.2 % (11.7-14.4)
[2020-02-09 08:14] LABS: ANION GAP 15.1 mmol/L (8-16); BLOOD UREA NITROGEN 12 mg/dL (7-26); BUN/CREATININE RATIO 17 (6-25); CALCIUM 8.3 mg/dL (8.4-10.2); CARBON DIOXIDE 26 mmol/L (22-29); CHLORIDE 99 mmol/L (98-107); CREATININE, SERUM 0.72 mg/dL (0.57-1.11); EST GLOMERULAR FILTRATION RATE > 60 ML/MIN (60-); GLUCOSE 255 mg/dL (74-118); MAGNESIUM 1.3 MG/DL (1.3-2.1); POTASSIUM 5.1 mmol/L (3.5-5.1); SODIUM 135 mmol/L (136-145)
[2020-02-09 08:15] VITALS: BP 144/56
[2020-02-09 08:16] VITALS: BP 144/56
[2020-02-09] MEDS ORDERED: INSULIN SQ SCH (09:00)
[2020-02-09] MEDS ORDERED: HUMULIN 70/30 VIAL SQ SCH (09:00)
[2020-02-09] MEDS ORDERED: INSULIN ASPART 70/30 100 UNITS/ML VIAL SC SCH (09:00)
[2020-02-09] MEDS: METFORMIN HCL 500 MG TAB CR PO SCH ×2 (09:04→16:33)
[2020-02-09] MEDS: INSULIN ASPART 70/30 100 UNITS/ML VIAL SC SCH ×2 (09:13→16:34)
[2020-02-09] MEDS: INSULIN REGULAR, HUMAN 100 UNIT/1 ML 3ML VIAL SQ SCH ×4 (09:15→21:00)
[2020-02-09 11:58] VITALS: BP 139/53
[2020-02-09] MEDS ORDERED: SOD POLYSTYRENE SULFONATE SUSP 15 GM/60 ML BTL PO NR (13:15)
[2020-02-09] MEDS ORDERED: MAGNESIUM SULFATE 2GM/50ML 50 ML IV ONE ×2 (13:15→15:15)
[2020-02-09] MEDS ORDERED: ONDANSETRON HCL INJ 2MG/ML 2ML 2 MG/ML VIAL IV PRN (14:45)
[2020-02-09] MEDS ORDERED: METOPROLOL TARTRATE INJ 1 MG/ML VIAL IV PRN (14:45)
[2020-02-09] MEDS ORDERED: DIPHENOXYLATE/ATROPINE TAB PO PRN (14:45)
[2020-02-09] MEDS ORDERED: ACETAMINOPHEN 325 MG TAB PO PRN (14:45)
[2020-02-09] MEDS ORDERED: POLYETHYLENE GLYCOL 3350 17 GM PACK PO PRN (14:45)
[2020-02-09] MEDS: CEFTRIAXONE SOD 1 GM/NS 50 ML 50 ML IV SCH (15:03)
[2020-02-09 15:41] VITALS: BP 146/50
[2020-02-09] MEDS: GLIPIZIDE 5 MG TAB ER PO SCH (16:11)
[2020-02-09] MEDS: IBUPROFEN 400 MG TAB PO SCH ×2 (16:12→21:52)
[2020-02-09] MEDS: FAMOTIDINE 20 MG/2 ML VIAL IV SCH (16:33)
[2020-02-09] MEDS: ACETAMINOPHEN/CODEINE 300MG - 30MG TAB PO PRN (18:14)
[2020-02-09 21:00] VITALS: BP 130/48
[2020-02-09] MEDS ORDERED: PRAMIPEXOLE DIHYDROCHLORIDE 0.25 MG TAB PO SCH (21:00)
[2020-02-10] VITALS: BP 139/55
[2020-02-10] MEDS: SODIUM CHLORIDE 0.9% 1000ML 1,000 ML IV SCH (00:03)
[2020-02-10] MEDS: ACETAMINOPHEN/CODEINE 300MG - 30MG TAB PO PRN ×2 (03:20→09:39)
[2020-02-10 04:00] VITALS: BP 139/55
[2020-02-10 04:58] LABS: BASOPHILS % 0.3 % (0.0-1.0); EOSINOPHILS # (AUTO) 0.1 (0.0-0.4); EOSINOPHILS % 0.9 % (0.0-6.0); HEMATOCRIT 30.5 % (34.2-44.1); HEMOGLOBIN 9.4 g/dL (12.0-16.0); LYMPHOCYTES # (AUTO) 1.4 (1.0-3.2); LYMPHOCYTES % 23.5 % (18.0-39.1); MEAN CORPUSCULAR HEMOGLOBIN 27.2 pg (28-32); MEAN CORPUSCULAR HGB CONC 30.8 g/dL (31-35); MEAN CORPUSCULAR VOLUME 88.2 fL (81-99); MONOCYTES # (AUTO) 0.8 (0.2-0.8); MONOCYTES % 13.1 % (4.4-11.3); NEUTROPHILS # (AUTO) 3.6 (2.1-6.9); NEUTROPHILS % 61.9 % (38.7-80.0); PLATELET COUNT 171 x10e3/uL (140-360); RED BLOOD COUNT 3.46 x10e6/uL (3.6-5.1); RED CELL DISTRIBUTION WIDTH 13.4 % (11.7-14.4)
[2020-02-10 05:20] LABS: ANION GAP 10.8 mmol/L (8-16); BLOOD UREA NITROGEN 9 mg/dL (7-26); BUN/CREATININE RATIO 16 (6-25); CALCIUM 8.1 mg/dL (8.4-10.2); CARBON DIOXIDE 27 mmol/L (22-29); CHLORIDE 103 mmol/L (98-107); CREATININE, SERUM 0.58 mg/dL (0.57-1.11); EST GLOMERULAR FILTRATION RATE > 60 ML/MIN (60-); GLUCOSE 126 mg/dL (74-118); MAGNESIUM 1.8 MG/DL (1.3-2.1); PHOSPHORUS 2.5 MG/DL (2.3-4.7); POTASSIUM 3.8 mmol/L (3.5-5.1); SODIUM 137 mmol/L (136-145)
[2020-02-10 07:49] VITALS: BP 148/76
[2020-02-10 08:26] VITALS: BP 148/76
[2020-02-10] MEDS ORDERED: AMLODIPINE BESYLATE 5 MG TAB PO SCH (09:00)
[2020-02-10] MEDS ORDERED: ENALAPRIL MALEATE 10 MG TAB PO SCH (09:00)
[2020-02-10] MEDS ORDERED: DULOXETINE HCL 20 MG DELAYED RELEASE PO SCH (09:00)
[2020-02-10] MEDS ORDERED: FUROSEMIDE 40 MG TAB PO SCH (09:00)
[2020-02-10] MEDS: METFORMIN HCL 500 MG TAB CR PO SCH (09:30)
[2020-02-10] MEDS: IBUPROFEN 400 MG TAB PO SCH ×2 (09:31→15:08)
[2020-02-10] MEDS: FAMOTIDINE 20 MG/2 ML VIAL IV SCH (09:31)
[2020-02-10] MEDS: GLIPIZIDE 5 MG TAB ER PO SCH (09:32)
[2020-02-10] MEDS: INSULIN REGULAR, HUMAN 100 UNIT/1 ML 3ML VIAL SQ SCH ×2 (09:42→12:14)
[2020-02-10] MEDS: INSULIN ASPART 70/30 100 UNITS/ML VIAL SC SCH (09:42)
[2020-02-10 10:15] LABS: CLARITY,URINE CLEAR (CLEAR); COLOR,URINE YELLOW (YELLOW); LEUKOCYTE ESTERASE ,URINE NEGATIVE (NEGATIVE); NITRITE,URINE NEGATIVE (NEGATIVE); PROTEIN,URINE DIPSTICK NEGATIVE (NEGATIVE)
[2020-02-10 10:16] LABS: BILIRUBIN,URINE SMALL (NEGATIVE); KETONES,URINE 2+ (NEGATIVE); URINE UROBILINOGEN 2 mg/dL (0.2 - 1)
[2020-02-10 10:21] LABS: BACTERIA,URINE FEW /HPF; EPITHELIAL CELLS,URINE FEW /LPF; MUCUS,URINE FEW (RARE); RBC,URINE 0-5 /HPF (0-5); WBC,URINE (MAN) 0-5 /HPF (0-5)
[2020-02-10 11:09] VITALS: BP 137/40
[2020-02-10] MEDS ORDERED: ACETAMINOPHEN325 M1 PO (15:04)
[2020-02-10] MEDS: CEFTRIAXONE SOD 1 GM/NS 50 ML 50 ML IV SCH (15:08)
[2020-02-10 15:29] VITALS: BP 116/51
== END 2020-02-10 16:33 | disposition home or self-care (01) ==
LOC: OR 09:49 → INTOOBSV 19:02 → MED/SURG 19:02
PROVIDERS: ADMIT Specialist; ATTEND Specialist
DX: S42.422A Displaced comminuted supracondylar fracture without intercondylar fracture of left humerus, initial encounter for closed fracture (principal); G56.32 Lesion of radial nerve, left upper limb; Z48.89 Encounter for other specified surgical aftercare; T84.11 Breakdown (mechanical) of internal fixation device of bones of limb; E11.65 Type 2 diabetes mellitus with hyperglycemia; I10 Essential (primary) hypertension; Z88.8 Allergy status to other drugs, medicaments and biological substances; Z91.013 Allergy to seafood; E66.01 Morbid (severe) obesity due to excess calories; Z68.41 Body mass index [BMI] 40.0-44.9, adult; Z82.49 Family history of ischemic heart disease and other diseases of the circulatory system; Z80.6 Family history of leukemia; Z83.3 Family history of diabetes mellitus; N39.0 Urinary tract infection, site not specified; R41.82 Altered mental status, unspecified; E87.5 Hyperkalemia; E83.42 Hypomagnesemia; F41.9 Anxiety disorder, unspecified; Z79.84 Long term (current) use of oral hypoglycemic drugs; Z20.828 Contact with and (suspected) exposure to other viral communicable diseases
CPT/HCPCS: 20680; 24545; 36415 ×4; 73060; 80048 ×3; 81001; 82140; 82948 ×2; 83735 ×2; 84100; 85014; 85018; 85025 ×2; 86850; 86900; 96360; 96361 ×2; 97116; 97161; C1713 ×10; G0378 ×3; J0690 ×3; J0696 ×2; J1100; J1815; J2001; J2250; J2405 ×2; J2704; J2765; J3010; J3475; J3490; J7030 ×2; U0002; 76000

== ENCOUNTER 2021-03-15 09:39 | Inpatient (IN) | payer MEDICARE, OTHER ==
[~2021-03-15] VITALS: Ht 172.7 cm; Wt 118.6 kg
[~2021-03-15 09:39] MED LIST changes: +ACETAMINOPHEN325 M1 PO
[2021-03-15] MEDS ORDERED: METOPROLOL TARTRATE INJ 1 MG/ML VIAL IV ONE (10:45)
[2021-03-15] MEDS ORDERED: METOPROLOL TARTRATE 50 MG TAB PO ONE ×2 (10:45→21:15)
[2021-03-15] MEDS ORDERED: ONDANSETRON HCL INJ 2MG/ML 2ML 2 MG/ML VIAL IV STA (12:42)
[2021-03-15] MEDS ORDERED: Morphine 4mg Syringe 4 MG/ML INJ IV STA (12:42)
[2021-03-15 13:22] LABS: BASOPHILS % 0.3 % (0.0-1.0); HEMOGLOBIN 13.1 g/dL (12.0-16.0); LYMPHOCYTES # (AUTO) 0.6 (1.0-3.2); MEAN CORPUSCULAR HEMOGLOBIN 27.4 pg (28-32); MEAN CORPUSCULAR HGB CONC 31.2 g/dL (31-35); MEAN CORPUSCULAR VOLUME 87.9 fL (81-99); MONOCYTES # (AUTO) 0.6 (0.2-0.8); MONOCYTES % 8.1 % (4.4-11.3); NEUTROPHILS # (AUTO) 5.9 (2.1-6.9); NEUTROPHILS % 82.8 % (38.7-80.0); PLATELET COUNT 212 x10e3/uL (140-360); RED BLOOD COUNT 4.78 x10e6/uL (3.6-5.1); RED CELL DISTRIBUTION WIDTH 13.1 % (11.7-14.4)
[2021-03-15 13:27] LABS: INR 1.09; PARTIAL THROMBOPLASTIN TIME 29.9 seconds (23.8-35.5)
[2021-03-15 13:34] LABS: ALBUMIN 3.5 g/dL (3.5-5.0); ALBUMIN/GLOBULIN RATIO 0.9 (0.8-2.0); ANION GAP 15.6 mmol/L (8-16); CALCIUM 9.1 mg/dL (8.4-10.2); CREATININE, SERUM 1.11 mg/dL (0.57-1.11)
[2021-03-15 13:37] LABS: POTASSIUM 5.6 mmol/L (3.5-5.1)
[2021-03-15 13:40] LABS: CREATINE KINASE MB 1.1 ng/mL (0-5.0)
[2021-03-15] MEDS: FAMOTIDINE 20 MG/2 ML VIAL IV SCH ×2 (14:57→21:41)
[2021-03-15] MEDS ORDERED: CASIRIVIMAB/IMDEVIMAB 10 ML in SODIUM CHLORIDE 0.9% 100 ML IV ONE (15:15)
[2021-03-15] MEDS ORDERED: DEXTROSE 50% SYRINGE 50 ML IV PRN (18:15)
[2021-03-15] MEDS: Morphine 2mg Syringe 2 MG/ML SYR IV PRN ×2 (19:12→22:57)
[2021-03-15] MEDS: ONDANSETRON HCL INJ 2MG/ML 2ML 2 MG/ML VIAL IV PRN (19:12)
[2021-03-15 20:05] VITALS: BP_SYST 108; BP_SYST 122; BP_DIAS 100; BP_DIAS 92
[2021-03-15 20:20] VITALS: BP 122/100
[2021-03-15] MEDS: INSULIN LISPRO 100 UNIT/1 ML 3ML VIAL SQ SCH (21:00)
[2021-03-15] MEDS ORDERED: METOPROLOL TAR100 MG PO (21:07)
[2021-03-15] MEDS ORDERED: BUSPIRONE HCL15 MG PO (22:07)
[2021-03-15] MEDS ORDERED: GABAPENTIN800 MG PO (22:07)
[2021-03-15] MEDS ORDERED: GLIPIZIDE ER10 MG PO (22:07)
[2021-03-15] MEDS ORDERED: DICLOFENAC SODI75 MG PO (22:07)
[2021-03-15] MEDS ORDERED: ACETAMINOPHEN-1 EAC4 PO (22:07)
[2021-03-15] MEDS ORDERED: FUROSEMIDE20 MG PO (22:07)
[2021-03-15] MEDS ORDERED: TRULICITY0.75 MG/0. SQ (22:07)
[2021-03-15] MEDS ORDERED: PRAVASTATIN SOD40 MG PO (22:07)
[2021-03-15] MEDS ORDERED: JARDIANCE25 MG PO (22:07)
[2021-03-15] MEDS ORDERED: DICLOFENAC SOD100 GM TOP (22:07)
[2021-03-15] MEDS ORDERED: HUMULIN 70100 UNIT/1 SQ (22:07)
[2021-03-15] MEDS ORDERED: METFORMIN HCL1000 M1 PO (22:07)
[2021-03-15] MEDS ORDERED: PRAMIPEXOLE DI0.5 MG PO (22:07)
[2021-03-15] MEDS ORDERED: ENALAPRIL MALEA20 MG PO (22:07)
[2021-03-15 22:14] LABS: CREATINE KINASE MB 0.7 ng/mL (0-5.0)
[2021-03-15] MEDS: METOPROLOL TARTRATE INJ 1 MG/ML VIAL IV PRN (23:55)
[2021-03-16] VITALS (8 sets, daily range): BP systolic 97–138; BP diastolic 57–76
[2021-03-16] MEDS: ACETAMINOPHEN 325 MG TAB PO PRN (01:18)
[2021-03-16] MEDS: Morphine 2mg Syringe 2 MG/ML SYR IV PRN ×3 (01:55→13:20)
[2021-03-16 06:17] LABS: BASOPHILS % 0.7 % (0.0-1.0); EOSINOPHILS % 0.2 % (0.0-6.0); HEMOGLOBIN 12.8 g/dL (12.0-16.0); LYMPHOCYTES # (AUTO) 1.6 (1.0-3.2); LYMPHOCYTES % 35.5 % (18.0-39.1); MEAN CORPUSCULAR HEMOGLOBIN 27.2 pg (28-32); MEAN CORPUSCULAR HGB CONC 31.2 g/dL (31-35); MEAN CORPUSCULAR VOLUME 87.2 fL (81-99); MONOCYTES # (AUTO) 0.7 (0.2-0.8); MONOCYTES % 16.2 % (4.4-11.3); NEUTROPHILS # (AUTO) 2.1 (2.1-6.9); PLATELET COUNT 199 x10e3/uL (140-360); RED CELL DISTRIBUTION WIDTH 13.3 % (11.7-14.4)
[2021-03-16 06:56] LABS: ALBUMIN 3.1 g/dL (3.5-5.0); ALBUMIN/GLOBULIN RATIO 0.8 (0.8-2.0); ANION GAP 14.5 mmol/L (8-16); CALCIUM 8.8 mg/dL (8.4-10.2); CREATININE, SERUM 0.82 mg/dL (0.57-1.11); POTASSIUM 4.5 mmol/L (3.5-5.1)
[2021-03-16 07:03] LABS: CREATINE KINASE MB 0.7 ng/mL (0-5.0)
[2021-03-16] MEDS: INSULIN LISPRO 100 UNIT/1 ML 3ML VIAL SQ SCH ×4 (07:30→21:00)
[2021-03-16] MEDS ORDERED: SODIUM CHLORIDE 0.9% 250ML 250 ML ONE (08:54)
[2021-03-16] MEDS: FAMOTIDINE 20 MG/2 ML VIAL IV SCH ×2 (08:59→21:34)
[2021-03-16] MEDS: METOPROLOL TARTRATE 50 MG TAB PO SCH ×2 (09:00→16:52)
[2021-03-16] MEDS ORDERED: METOPROLOL TARTRATE 25 MG TAB PO SCH (09:00)
[2021-03-16] MEDS: PIPERACILLIN/TAZOBACTAM 3.375 GM in SODIUM CHLORIDE 0.9% 50ML 50 ML IV SCH ×2 (09:34→16:52)
[2021-03-16] MEDS: ENOXAPARIN 30 MG/0.3 ML SYR SC SCH ×2 (13:24→21:34)
[2021-03-16] MEDS: SODIUM CHLORIDE 0.9% 1000ML 1,000 ML IV SCH (13:24)
[2021-03-16 13:35] LABS: CLARITY,URINE SL CLOUDY (CLEAR); COLOR,URINE YELLOW (YELLOW)
[2021-03-16 13:36] LABS: KETONES,URINE NEGATIVE (NEGATIVE); LEUKOCYTE ESTERASE ,URINE TRACE (NEGATIVE); NITRITE,URINE POSITIVE (NEGATIVE); PROTEIN,URINE DIPSTICK NEGATIVE (NEGATIVE); URINE UROBILINOGEN 1 mg/dL (0.2 - 1)
[2021-03-16 13:51] LABS: BACTERIA,URINE MANY /HPF; EPITHELIAL CELLS,URINE FEW /LPF
[2021-03-16 14:34] LABS: CREATINE KINASE MB 4.6 ng/mL (0-5.0)
[2021-03-16] MEDS ORDERED: DIGOXIN INJ 0.25 MG/ML 2 ML AMP IV ONE (17:30)
[2021-03-17] VITALS (12 sets, daily range): BP systolic 91–161; BP diastolic 54–92
[2021-03-17] MEDS: Morphine 2mg Syringe 2 MG/ML SYR IV PRN ×3 (00:30→22:57)
[2021-03-17] MEDS: ACETAMINOPHEN 325 MG TAB PO PRN (00:30)
[2021-03-17] MEDS: METOPROLOL TARTRATE INJ 1 MG/ML VIAL IV PRN ×2 (00:39→06:29)
[2021-03-17] MEDS: SODIUM CHLORIDE 0.9% 1000ML 1,000 ML IV SCH ×2 (04:25→09:14)
[2021-03-17 06:05] LABS: BASOPHILS % 0.2 % (0.0-1.0); HEMATOCRIT 44.1 % (34.2-44.1); HEMOGLOBIN 14.2 g/dL (12.0-16.0); LYMPHOCYTES # (AUTO) 1.9 (1.0-3.2); LYMPHOCYTES % 42.9 % (18.0-39.1); MEAN CORPUSCULAR HEMOGLOBIN 27.3 pg (28-32); MEAN CORPUSCULAR HGB CONC 32.2 g/dL (31-35); MEAN CORPUSCULAR VOLUME 84.6 fL (81-99); MONOCYTES # (AUTO) 0.8 (0.2-0.8); MONOCYTES % 18.4 % (4.4-11.3); NEUTROPHILS # (AUTO) 1.7 (2.1-6.9); NEUTROPHILS % 38.3 % (38.7-80.0); PLATELET COUNT 197 x10e3/uL (140-360); RED BLOOD COUNT 5.21 x10e6/uL (3.6-5.1); RED CELL DISTRIBUTION WIDTH 13.2 % (11.7-14.4)
[2021-03-17 06:22] LABS: ALBUMIN 3.1 g/dL (3.5-5.0); ALBUMIN/GLOBULIN RATIO 0.7 (0.8-2.0); ANION GAP 17.5 mmol/L (8-16); CALCIUM 9.3 mg/dL (8.4-10.2); CREATININE, SERUM 0.77 mg/dL (0.57-1.11); POTASSIUM 4.5 mmol/L (3.5-5.1)
[2021-03-17] MEDS: ONDANSETRON HCL INJ 2MG/ML 2ML 2 MG/ML VIAL IV PRN (06:29)
[2021-03-17] MEDS: INSULIN LISPRO 100 UNIT/1 ML 3ML VIAL SQ SCH ×4 (07:30→20:28)
[2021-03-17] MEDS: PIPERACILLIN/TAZOBACTAM 3.375 GM in SODIUM CHLORIDE 0.9% 50ML 50 ML IV SCH ×5 (08:00→23:54)
[2021-03-17] MEDS: METOPROLOL TARTRATE 50 MG TAB PO SCH ×2 (09:14→17:00)
[2021-03-17] MEDS: DIGOXIN 0.125 MG TAB PO SCH (09:14)
[2021-03-17] MEDS: FAMOTIDINE 20 MG/2 ML VIAL IV SCH ×2 (09:14→20:41)
[2021-03-17] MEDS: ENOXAPARIN 30 MG/0.3 ML SYR SC SCH ×2 (09:14→20:41)
[2021-03-17] MEDS ORDERED: AMIODARONE 900MG 500 ML IV ONE ×2 (13:15→16:21)
[2021-03-17] MEDS ORDERED: AMIODARONE HCL 150 MG/100 ML BAG IV ONE ×2 (13:15)
[2021-03-17 13:39] LABS: FREE T4 (FREE THYROXINE) 1.16 ng/dL (0.8-1.8); THYROID STIMULATING HORMONE 2.686 uIU/mL (0.350-4.940)
[2021-03-17] MEDS ORDERED: REMDESIVIR 200MG 200 MG in SODIUM CHLORIDE 0.9% 100 ML IV ONE (14:00)
[2021-03-17] MEDS: KETOROLAC TROMETHAMINE 30 MG/ML VIAL IV PRN (15:27)
[2021-03-17] MEDS: HYDROCODONE/APAP 7.5MG-325MG 1 EA TAB PO PRN (19:39)
[2021-03-18] VITALS (24 sets, daily range): BP systolic 110–156; BP diastolic 56–100
[2021-03-18] MEDS: HYDROCODONE/APAP 7.5MG-325MG 1 EA TAB PO PRN ×2 (01:20→20:14)
[2021-03-18] MEDS: KETOROLAC TROMETHAMINE 30 MG/ML VIAL IV PRN ×2 (02:17→21:39)
[2021-03-18 05:05] LABS: BASOPHILS % 0.4 % (0.0-1.0); HEMATOCRIT 39.8 % (34.2-44.1); HEMOGLOBIN 12.4 g/dL (12.0-16.0); LYMPHOCYTES # (AUTO) 1.1 (1.0-3.2); LYMPHOCYTES % 22.5 % (18.0-39.1); MEAN CORPUSCULAR HGB CONC 31.2 g/dL (31-35); MEAN CORPUSCULAR VOLUME 86.7 fL (81-99); MONOCYTES # (AUTO) 0.7 (0.2-0.8); MONOCYTES % 14.1 % (4.4-11.3); NEUTROPHILS % 62.6 % (38.7-80.0); PLATELET COUNT 165 x10e3/uL (140-360); RED BLOOD COUNT 4.59 x10e6/uL (3.6-5.1); RED CELL DISTRIBUTION WIDTH 13.4 % (11.7-14.4)
[2021-03-18 05:23] LABS: ALBUMIN 2.8 g/dL (3.5-5.0); ALBUMIN/GLOBULIN RATIO 0.7 (0.8-2.0); ANION GAP 16.7 mmol/L (8-16); CALCIUM 8.1 mg/dL (8.4-10.2); CREATININE, SERUM 0.72 mg/dL (0.57-1.11); POTASSIUM 3.7 mmol/L (3.5-5.1)
[2021-03-18] MEDS: INSULIN LISPRO 100 UNIT/1 ML 3ML VIAL SQ SCH ×4 (07:39→20:13)
[2021-03-18] MEDS: FAMOTIDINE 20 MG/2 ML VIAL IV SCH ×2 (08:04→20:13)
[2021-03-18] MEDS: PIPERACILLIN/TAZOBACTAM 3.375 GM in SODIUM CHLORIDE 0.9% 50ML 50 ML IV SCH ×3 (08:04→23:23)
[2021-03-18] MEDS: DIGOXIN 0.125 MG TAB PO SCH (08:04)
[2021-03-18] MEDS: METOPROLOL TARTRATE 50 MG TAB PO SCH ×2 (08:05→16:36)
[2021-03-18] MEDS: ENOXAPARIN 30 MG/0.3 ML SYR SC SCH ×2 (08:05→20:13)
[2021-03-18] MEDS: Morphine 2mg Syringe 2 MG/ML SYR IV PRN ×2 (08:42→22:45)
[2021-03-18] MEDS: ONDANSETRON HCL INJ 2MG/ML 2ML 2 MG/ML VIAL IV PRN ×2 (08:42→22:46)
[2021-03-18] MEDS ORDERED: AMIODARONE 900MG 500 ML IV ONE (13:00)
[2021-03-18] MEDS ORDERED: REMDESIVIR 100MG 100 MG in SODIUM CHLORIDE 0.9% 100 ML IV SCH (14:00)
[2021-03-18] MEDS ORDERED: DIGOXIN INJ 0.25 MG/ML 2 ML AMP IV ONE (16:30)
[2021-03-19] VITALS (27 sets, daily range): BP systolic 110–164; BP diastolic 42–88
[2021-03-19 06:24] LABS: BASOPHILS % 0.4 % (0.0-1.0); HEMATOCRIT 46.5 % (34.2-44.1); HEMOGLOBIN 14.1 g/dL (12.0-16.0); LYMPHOCYTES # (AUTO) 1.3 (1.0-3.2); MEAN CORPUSCULAR HEMOGLOBIN 27.5 pg (28-32); MEAN CORPUSCULAR HGB CONC 30.3 g/dL (31-35); MEAN CORPUSCULAR VOLUME 90.6 fL (81-99); MONOCYTES # (AUTO) 0.8 (0.2-0.8); MONOCYTES % 14.6 % (4.4-11.3); NEUTROPHILS # (AUTO) 3.2 (2.1-6.9); NEUTROPHILS % 60.6 % (38.7-80.0); PLATELET COUNT 166 x10e3/uL (140-360); RED BLOOD COUNT 5.13 x10e6/uL (3.6-5.1); RED CELL DISTRIBUTION WIDTH 13.2 % (11.7-14.4)
[2021-03-19 06:46] LABS: ALBUMIN/GLOBULIN RATIO 0.6 (0.8-2.0); ANION GAP 18.5 mmol/L (8-16); CALCIUM 9.5 mg/dL (8.4-10.2); CREATININE, SERUM 0.7 mg/dL (0.57-1.11); POTASSIUM 4.5 mmol/L (3.5-5.1)
[2021-03-19] MEDS: FAMOTIDINE 20 MG/2 ML VIAL IV SCH ×2 (07:49→21:49)
[2021-03-19] MEDS: PIPERACILLIN/TAZOBACTAM 3.375 GM in SODIUM CHLORIDE 0.9% 50ML 50 ML IV SCH ×3 (07:49→23:53)
[2021-03-19] MEDS: DIGOXIN 0.125 MG TAB PO SCH (07:49)
[2021-03-19] MEDS: METOPROLOL TARTRATE 50 MG TAB PO SCH ×2 (07:49→16:02)
[2021-03-19] MEDS: ENOXAPARIN 30 MG/0.3 ML SYR SC SCH ×2 (07:49→21:49)
[2021-03-19] MEDS: HYDROCODONE/APAP 7.5MG-325MG 1 EA TAB PO PRN ×2 (08:05→19:38)
[2021-03-19] MEDS: INSULIN LISPRO 100 UNIT/1 ML 3ML VIAL SQ SCH ×4 (08:23→21:52)
[2021-03-19] MEDS: AMIODARONE HCL 200 MG TAB PO SCH (19:38)
[2021-03-19] MEDS ORDERED: AMIODARONE HCL 200 MG TAB PO SCH (21:00)
[2021-03-20] VITALS (19 sets, daily range): BP systolic 136–151; BP diastolic 48–90
[2021-03-20] MEDS: Morphine 2mg Syringe 2 MG/ML SYR IV PRN (00:43)
[2021-03-20] MEDS: HYDROCODONE/APAP 7.5MG-325MG 1 EA TAB PO PRN (03:07)
[2021-03-20 06:19] LABS: BASOPHILS % 0.2 % (0.0-1.0); EOSINOPHILS % 0.2 % (0.0-6.0); HEMATOCRIT 39.7 % (34.2-44.1); HEMOGLOBIN 12.6 g/dL (12.0-16.0); LYMPHOCYTES # (AUTO) 0.9 (1.0-3.2); LYMPHOCYTES % 18.5 % (18.0-39.1); MEAN CORPUSCULAR HEMOGLOBIN 27.3 pg (28-32); MEAN CORPUSCULAR HGB CONC 31.7 g/dL (31-35); MEAN CORPUSCULAR VOLUME 85.9 fL (81-99); MONOCYTES # (AUTO) 0.8 (0.2-0.8); MONOCYTES % 18.1 % (4.4-11.3); NEUTROPHILS # (AUTO) 2.9 (2.1-6.9); NEUTROPHILS % 62.6 % (38.7-80.0); PLATELET COUNT 192 x10e3/uL (140-360); RED BLOOD COUNT 4.62 x10e6/uL (3.6-5.1)
[2021-03-20 06:45] LABS: ALBUMIN 2.5 g/dL (3.5-5.0); ALBUMIN/GLOBULIN RATIO 0.6 (0.8-2.0); ANION GAP 16.7 mmol/L (8-16); CALCIUM 8.8 mg/dL (8.4-10.2); CREATININE, SERUM 0.61 mg/dL (0.57-1.11); POTASSIUM 3.7 mmol/L (3.5-5.1)
[2021-03-20] MEDS: INSULIN LISPRO 100 UNIT/1 ML 3ML VIAL SQ SCH ×4 (07:30→20:49)
[2021-03-20] MEDS: AMIODARONE HCL 200 MG TAB PO SCH ×2 (08:15→17:17)
[2021-03-20] MEDS: METOPROLOL TARTRATE 50 MG TAB PO SCH ×2 (08:15→17:18)
[2021-03-20] MEDS: DIGOXIN 0.125 MG TAB PO SCH (08:15)
[2021-03-20] MEDS: PIPERACILLIN/TAZOBACTAM 3.375 GM in SODIUM CHLORIDE 0.9% 50ML 50 ML IV SCH ×3 (08:15→23:35)
[2021-03-20] MEDS: ENOXAPARIN 30 MG/0.3 ML SYR SC SCH ×2 (08:15→20:24)
[2021-03-20] MEDS: FAMOTIDINE 20 MG/2 ML VIAL IV SCH ×2 (08:15→20:24)
[2021-03-21] VITALS (8 sets, daily range): BP systolic 120–159; BP diastolic 60–103
[2021-03-21] MEDS: KETOROLAC TROMETHAMINE 30 MG/ML VIAL IV PRN (04:19)
[2021-03-21 06:20] LABS: BASOPHILS % 0.3 % (0.0-1.0); EOSINOPHILS % 0.3 % (0.0-6.0); HEMATOCRIT 40.5 % (34.2-44.1); HEMOGLOBIN 13.1 g/dL (12.0-16.0); LYMPHOCYTES # (AUTO) 0.9 (1.0-3.2); LYMPHOCYTES % 26.6 % (18.0-39.1); MEAN CORPUSCULAR HEMOGLOBIN 27.2 pg (28-32); MEAN CORPUSCULAR HGB CONC 32.3 g/dL (31-35); MONOCYTES # (AUTO) 0.8 (0.2-0.8); MONOCYTES % 21.8 % (4.4-11.3); NEUTROPHILS # (AUTO) 1.8 (2.1-6.9); NEUTROPHILS % 50.7 % (38.7-80.0); PLATELET COUNT 196 x10e3/uL (140-360); RED BLOOD COUNT 4.82 x10e6/uL (3.6-5.1); RED CELL DISTRIBUTION WIDTH 12.5 % (11.7-14.4)
[2021-03-21 06:51] LABS: ALBUMIN 2.4 g/dL (3.5-5.0); ALBUMIN/GLOBULIN RATIO 0.6 (0.8-2.0); ANION GAP 17.6 mmol/L (8-16); CALCIUM 8.6 mg/dL (8.4-10.2); CREATININE, SERUM 0.65 mg/dL (0.57-1.11); POTASSIUM 3.6 mmol/L (3.5-5.1)
[2021-03-21 08:04] LABS: EOSINOPHILS % (MANUAL) 2 % (0-7); LYMPHOCYTES % (MANUAL) 27 % (19-48); MONOCYTES % (MANUAL) 19 % (3.4-9.0); NEUTROPHILS % (MANUAL) 50 % (40-74)
[2021-03-21 08:05] LABS: PLATELET ESTIMATE ADEQUATE; PLATELET MORPHOLOGY COMMENT NORMAL; RBC MORPHOLOGY COMMENT NORMAL
[2021-03-21] MEDS: INSULIN LISPRO 100 UNIT/1 ML 3ML VIAL SQ SCH ×4 (08:30→20:34)
[2021-03-21] MEDS: PIPERACILLIN/TAZOBACTAM 3.375 GM in SODIUM CHLORIDE 0.9% 50ML 50 ML IV SCH ×3 (09:27→23:33)
[2021-03-21] MEDS: FAMOTIDINE 20 MG/2 ML VIAL IV SCH ×2 (09:28→20:28)
[2021-03-21] MEDS: DIGOXIN 0.125 MG TAB PO SCH (09:29)
[2021-03-21] MEDS: ENOXAPARIN 30 MG/0.3 ML SYR SC SCH ×2 (09:29→20:28)
[2021-03-21] MEDS: AMIODARONE HCL 200 MG TAB PO SCH ×2 (09:29→17:35)
[2021-03-21] MEDS: METOPROLOL TARTRATE 50 MG TAB PO SCH ×2 (09:29→17:35)
[2021-03-21] MEDS ORDERED: ONDANSETRON HCL 4 MG ORAL DISINTEGRATING TAB SL PRN (12:45)
[2021-03-21] MEDS: Morphine 2mg Syringe 2 MG/ML SYR IV PRN (20:41)
[2021-03-22] VITALS (8 sets, daily range): BP systolic 127–145; BP diastolic 59–87
[2021-03-22 05:12] LABS: BASOPHILS % 0.3 % (0.0-1.0); EOSINOPHILS % 0.6 % (0.0-6.0); HEMATOCRIT 40.7 % (34.2-44.1); HEMOGLOBIN 13.3 g/dL (12.0-16.0); LYMPHOCYTES # (AUTO) 1.3 (1.0-3.2); LYMPHOCYTES % 38.1 % (18.0-39.1); MEAN CORPUSCULAR HEMOGLOBIN 26.9 pg (28-32); MEAN CORPUSCULAR HGB CONC 32.7 g/dL (31-35); MEAN CORPUSCULAR VOLUME 82.2 fL (81-99); MONOCYTES # (AUTO) 0.7 (0.2-0.8); MONOCYTES % 19.8 % (4.4-11.3); NEUTROPHILS # (AUTO) 1.4 (2.1-6.9); NEUTROPHILS % 40.9 % (38.7-80.0); PLATELET COUNT 200 x10e3/uL (140-360); RED BLOOD COUNT 4.95 x10e6/uL (3.6-5.1); RED CELL DISTRIBUTION WIDTH 12.5 % (11.7-14.4)
[2021-03-22 05:56] LABS: ALBUMIN 2.4 g/dL (3.5-5.0); ALBUMIN/GLOBULIN RATIO 0.6 (0.8-2.0); ANION GAP 16.7 mmol/L (8-16); CALCIUM 8.5 mg/dL (8.4-10.2); CREATININE, SERUM 0.67 mg/dL (0.57-1.11); POTASSIUM 3.7 mmol/L (3.5-5.1)
[2021-03-22] MEDS: INSULIN LISPRO 100 UNIT/1 ML 3ML VIAL SQ SCH ×4 (08:15→20:01)
[2021-03-22] MEDS: PIPERACILLIN/TAZOBACTAM 3.375 GM in SODIUM CHLORIDE 0.9% 50ML 50 ML IV SCH ×3 (08:38→23:47)
[2021-03-22] MEDS: FAMOTIDINE 20 MG/2 ML VIAL IV SCH ×2 (08:38→20:01)
[2021-03-22] MEDS: DIGOXIN 0.125 MG TAB PO SCH (08:38)
[2021-03-22] MEDS: AMIODARONE HCL 200 MG TAB PO SCH ×2 (08:38→16:49)
[2021-03-22] MEDS: METOPROLOL TARTRATE 50 MG TAB PO SCH ×2 (08:39→16:50)
[2021-03-22] MEDS: ENOXAPARIN 30 MG/0.3 ML SYR SC SCH ×2 (08:39→20:01)
[2021-03-22] MEDS: INSULIN GLARGINE 100 UNITS/ML VIAL SQ SCH (12:30)
[2021-03-22] MEDS: HYDROCODONE/APAP 7.5MG-325MG 1 EA TAB PO PRN ×2 (14:40→20:44)
[2021-03-22] MEDS: ACETAMINOPHEN 325 MG TAB PO PRN (16:49)
[2021-03-23] VITALS (8 sets, daily range): BP systolic 114–146; BP diastolic 57–90
[2021-03-23 05:37] LABS: BASOPHILS % 0.3 % (0.0-1.0); EOSINOPHILS # (AUTO) 0.1 (0.0-0.4); EOSINOPHILS % 1.6 % (0.0-6.0); HEMATOCRIT 42.5 % (34.2-44.1); HEMOGLOBIN 13.5 g/dL (12.0-16.0); LYMPHOCYTES # (AUTO) 1.3 (1.0-3.2); MEAN CORPUSCULAR HGB CONC 31.8 g/dL (31-35); MONOCYTES # (AUTO) 0.7 (0.2-0.8); MONOCYTES % 20.8 % (4.4-11.3); NEUTROPHILS # (AUTO) 1.2 (2.1-6.9); PLATELET COUNT 194 x10e3/uL (140-360); RED CELL DISTRIBUTION WIDTH 12.6 % (11.7-14.4)
[2021-03-23] MEDS: HYDROCODONE/APAP 7.5MG-325MG 1 EA TAB PO PRN ×2 (05:43→21:25)
[2021-03-23 06:09] LABS: ANION GAP 16.6 mmol/L (8-16); POTASSIUM 3.6 mmol/L (3.5-5.1)
[2021-03-23 06:31] LABS: CALCIUM 8.2 mg/dL (8.4-10.2); CREATININE, SERUM 0.62 mg/dL (0.57-1.11)
[2021-03-23] MEDS: FAMOTIDINE 20 MG/2 ML VIAL IV SCH (08:30)
[2021-03-23] MEDS: INSULIN GLARGINE 100 UNITS/ML VIAL SQ SCH (08:30)
[2021-03-23] MEDS: INSULIN LISPRO 100 UNIT/1 ML 3ML VIAL SQ SCH ×4 (08:30→21:31)
[2021-03-23] MEDS: DIGOXIN 0.125 MG TAB PO SCH (08:30)
[2021-03-23] MEDS: AMIODARONE HCL 200 MG TAB PO SCH ×2 (08:30→17:22)
[2021-03-23] MEDS: PIPERACILLIN/TAZOBACTAM 3.375 GM in SODIUM CHLORIDE 0.9% 50ML 50 ML IV SCH ×3 (08:30→23:23)
[2021-03-23] MEDS: METOPROLOL TARTRATE 50 MG TAB PO SCH ×2 (08:30→17:23)
[2021-03-23] MEDS: ENOXAPARIN 30 MG/0.3 ML SYR SC SCH (09:24)
[2021-03-23] MEDS: FAMOTIDINE 20 MG TAB PO SCH (21:23)
[2021-03-24] VITALS (9 sets, daily range): BP systolic 115–154; BP diastolic 53–96
[2021-03-24 05:57] LABS: BASOPHILS % 0.3 % (0.0-1.0); EOSINOPHILS # (AUTO) 0.1 (0.0-0.4); EOSINOPHILS % 1.6 % (0.0-6.0); HEMATOCRIT 41.1 % (34.2-44.1); HEMOGLOBIN 13.5 g/dL (12.0-16.0); LYMPHOCYTES # (AUTO) 1.4 (1.0-3.2); LYMPHOCYTES % 38.5 % (18.0-39.1); MEAN CORPUSCULAR HEMOGLOBIN 27.2 pg (28-32); MEAN CORPUSCULAR HGB CONC 32.8 g/dL (31-35); MEAN CORPUSCULAR VOLUME 82.9 fL (81-99); MONOCYTES # (AUTO) 0.7 (0.2-0.8); MONOCYTES % 18.1 % (4.4-11.3); NEUTROPHILS # (AUTO) 1.5 (2.1-6.9); NEUTROPHILS % 41.2 % (38.7-80.0); PLATELET COUNT 218 x10e3/uL (140-360); RED BLOOD COUNT 4.96 x10e6/uL (3.6-5.1); RED CELL DISTRIBUTION WIDTH 12.5 % (11.7-14.4)
[2021-03-24 06:35] LABS: ANION GAP 15.5 mmol/L (8-16); CALCIUM 8.7 mg/dL (8.4-10.2); CREATININE, SERUM 0.59 mg/dL (0.57-1.11); POTASSIUM 3.5 mmol/L (3.5-5.1)
[2021-03-24] MEDS: PIPERACILLIN/TAZOBACTAM 3.375 GM in SODIUM CHLORIDE 0.9% 50ML 50 ML IV SCH ×3 (09:07→23:13)
[2021-03-24] MEDS: DIGOXIN 0.125 MG TAB PO SCH (09:07)
[2021-03-24] MEDS: AMIODARONE HCL 200 MG TAB PO SCH ×2 (09:07→16:57)
[2021-03-24] MEDS: FAMOTIDINE 20 MG TAB PO SCH ×2 (09:08→20:11)
[2021-03-24] MEDS: METOPROLOL TARTRATE 50 MG TAB PO SCH ×2 (09:08→16:57)
[2021-03-24] MEDS: INSULIN GLARGINE 100 UNITS/ML VIAL SQ SCH (09:47)
[2021-03-24] MEDS: INSULIN LISPRO 100 UNIT/1 ML 3ML VIAL SQ SCH ×4 (09:47→22:20)
[2021-03-24] MEDS: ENOXAPARIN 30 MG/0.3 ML SYR SC SCH (17:00)
[2021-03-24] MEDS: ACETAMINOPHEN 325 MG TAB PO PRN (20:12)
[2021-03-25] VITALS (9 sets, daily range): BP systolic 130–149; BP diastolic 56–96
[2021-03-25] MEDS: METOPROLOL TARTRATE 50 MG TAB PO SCH ×2 (09:05→16:54)
[2021-03-25] MEDS: FAMOTIDINE 20 MG TAB PO SCH ×2 (09:05→21:00)
[2021-03-25] MEDS: AMIODARONE HCL 200 MG TAB PO SCH ×2 (09:05→16:54)
[2021-03-25] MEDS: DIGOXIN 0.125 MG TAB PO SCH (09:05)
[2021-03-25] MEDS: PIPERACILLIN/TAZOBACTAM 3.375 GM in SODIUM CHLORIDE 0.9% 50ML 50 ML IV SCH ×3 (09:05→23:11)
[2021-03-25] MEDS: ENOXAPARIN 30 MG/0.3 ML SYR SC SCH ×2 (09:05→21:00)
[2021-03-25] MEDS: ACETAMINOPHEN 325 MG TAB PO PRN ×2 (09:19→15:50)
[2021-03-25] MEDS: INSULIN LISPRO 100 UNIT/1 ML 3ML VIAL SQ SCH ×4 (09:57→21:01)
[2021-03-25] MEDS: INSULIN GLARGINE 100 UNITS/ML VIAL SQ SCH (09:58)
[2021-03-25] MEDS: HYDROCODONE/APAP 7.5MG-325MG 1 EA TAB PO PRN ×2 (16:54→23:11)
[2021-03-26] MEDS: ACETAMINOPHEN/CODEINE 300MG - 30MG TAB PO PRN ×2 (02:08→21:34)
[2021-03-26 05:13] VITALS: BP 150/77
[2021-03-26 07:35] LABS: BASOPHILS % 0.4 % (0.0-1.0); EOSINOPHILS # (AUTO) 0.1 (0.0-0.4); EOSINOPHILS % 1.3 % (0.0-6.0); HEMATOCRIT 38.1 % (34.2-44.1); HEMOGLOBIN 12.1 g/dL (12.0-16.0); LYMPHOCYTES # (AUTO) 1.4 (1.0-3.2); LYMPHOCYTES % 30.3 % (18.0-39.1); MEAN CORPUSCULAR HEMOGLOBIN 27.1 pg (28-32); MEAN CORPUSCULAR HGB CONC 31.8 g/dL (31-35); MEAN CORPUSCULAR VOLUME 85.2 fL (81-99); MONOCYTES # (AUTO) 0.8 (0.2-0.8); MONOCYTES % 17.8 % (4.4-11.3); NEUTROPHILS # (AUTO) 2.3 (2.1-6.9); NEUTROPHILS % 49.6 % (38.7-80.0); PLATELET COUNT 239 x10e3/uL (140-360); RED BLOOD COUNT 4.47 x10e6/uL (3.6-5.1); RED CELL DISTRIBUTION WIDTH 12.6 % (11.7-14.4)
[2021-03-26 07:55] LABS: ANION GAP 15.3 mmol/L (8-16); CALCIUM 8.2 mg/dL (8.4-10.2); CREATININE, SERUM 0.58 mg/dL (0.57-1.11); MAGNESIUM 1.5 MG/DL (1.3-2.1); PHOSPHORUS 3.3 MG/DL (2.3-4.7); POTASSIUM 3.3 mmol/L (3.5-5.1)
[2021-03-26 07:56] VITALS: BP 162/78
[2021-03-26] MEDS ORDERED: MAGNESIUM SULFATE 2GM/50ML 50 ML IV ONE (08:15)
[2021-03-26] MEDS: DIGOXIN 0.125 MG TAB PO SCH (10:58)
[2021-03-26] MEDS: PIPERACILLIN/TAZOBACTAM 3.375 GM in SODIUM CHLORIDE 0.9% 50ML 50 ML IV SCH ×2 (10:58→21:37)
[2021-03-26] MEDS: AMIODARONE HCL 200 MG TAB PO SCH ×2 (10:58→17:41)
[2021-03-26] MEDS: FAMOTIDINE 20 MG TAB PO SCH ×2 (10:59→21:34)
[2021-03-26] MEDS: ENOXAPARIN 30 MG/0.3 ML SYR SC SCH (10:59)
[2021-03-26] MEDS: METOPROLOL TARTRATE 50 MG TAB PO SCH ×2 (10:59→17:42)
[2021-03-26] MEDS: INSULIN GLARGINE 100 UNITS/ML VIAL SQ SCH (11:01)
[2021-03-26] MEDS: INSULIN LISPRO 100 UNIT/1 ML 3ML VIAL SQ SCH ×4 (11:01→21:24)
[2021-03-26 12:14] VITALS: BP 144/65
[2021-03-26] MEDS ORDERED: POTASSIUM CHLORIDE 20 MEQ TAB CR PO NR (15:00)
[2021-03-26 16:24] VITALS: BP 133/74
[2021-03-26] MEDS ORDERED: POTASSIUM CHLORIDE 20 MEQ TAB CR PO STA (19:34)
[2021-03-26 20:06] VITALS: BP 143/80
[2021-03-26 21:15] VITALS: BP 143/80
[2021-03-26] MEDS: HYDROCODONE/APAP 7.5MG-325MG 1 EA TAB PO PRN (23:24)
[2021-03-26] MEDS: SODIUM CHLORIDE 0.9% 1000ML 1,000 ML IV SCH (23:44)
[2021-03-27 04:53] VITALS: BP 163/56
[2021-03-27] MEDS: PIPERACILLIN/TAZOBACTAM 3.375 GM in SODIUM CHLORIDE 0.9% 50ML 50 ML IV SCH ×3 (06:25→21:16)
[2021-03-27] MEDS: INSULIN LISPRO 100 UNIT/1 ML 3ML VIAL SQ SCH ×4 (07:30→21:00)
[2021-03-27 07:33] LABS: BASOPHILS % 0.5 % (0.0-1.0); EOSINOPHILS # (AUTO) 0.1 (0.0-0.4); EOSINOPHILS % 1.5 % (0.0-6.0); HEMATOCRIT 39.9 % (34.2-44.1); HEMOGLOBIN 12.7 g/dL (12.0-16.0); LYMPHOCYTES % 25.4 % (18.0-39.1); MEAN CORPUSCULAR HEMOGLOBIN 27.3 pg (28-32); MEAN CORPUSCULAR HGB CONC 31.8 g/dL (31-35); MEAN CORPUSCULAR VOLUME 85.6 fL (81-99); MONOCYTES # (AUTO) 0.6 (0.2-0.8); MONOCYTES % 15.5 % (4.4-11.3); NEUTROPHILS # (AUTO) 2.3 (2.1-6.9); NEUTROPHILS % 56.1 % (38.7-80.0); PLATELET COUNT 252 x10e3/uL (140-360); RED BLOOD COUNT 4.66 x10e6/uL (3.6-5.1); RED CELL DISTRIBUTION WIDTH 12.6 % (11.7-14.4)
[2021-03-27 08:12] LABS: ANION GAP 16.3 mmol/L (8-16); CALCIUM 8.2 mg/dL (8.4-10.2); CREATININE, SERUM 0.61 mg/dL (0.57-1.11); MAGNESIUM 1.7 MG/DL (1.3-2.1); PHOSPHORUS 3.3 MG/DL (2.3-4.7); POTASSIUM 3.3 mmol/L (3.5-5.1)
[2021-03-27] MEDS: DIGOXIN 0.125 MG TAB PO SCH (08:16)
[2021-03-27] MEDS: AMIODARONE HCL 200 MG TAB PO SCH ×2 (08:16→21:00)
[2021-03-27] MEDS: FAMOTIDINE 20 MG TAB PO SCH ×2 (08:16→21:00)
[2021-03-27] MEDS: METOPROLOL TARTRATE 50 MG TAB PO SCH ×2 (08:16→17:00)
[2021-03-27 08:17] VITALS: BP 139/76
[2021-03-27 09:00] VITALS: BP 139/76
[2021-03-27] MEDS: INSULIN GLARGINE 100 UNITS/ML VIAL SQ SCH (09:00)
[2021-03-27] MEDS ORDERED: POTASSIUM CHLORIDE 20 MEQ TAB CR PO ONE (09:30)
[2021-03-27] MEDS: SODIUM CHLORIDE 0.9% 1000ML 1,000 ML IV SCH ×2 (11:20→19:59)
[2021-03-27 11:57] VITALS: BP 145/76
[2021-03-27] MEDS ORDERED: FENTANYL CITRATE/PF 100MCG/2 ML INJ ONE ×2 (12:30→18:43)
[2021-03-27] MEDS ORDERED: MIDAZOLAM HCL 2 MG/2 ML VIAL ONE (12:30)
[2021-03-27] MEDS ORDERED: HYDROMORPHONE 2MG/ML 2 MG/ML ML ONE (15:50)
[2021-03-27] MEDS ORDERED: ACETAMINOPHEN 1000 MG/100 ML 100 ML IV ONE (16:12)
[2021-03-27] MEDS ORDERED: ACETAMINOPHEN 1000 MG/100 ML IV PRN (18:30)
[2021-03-27] MEDS ORDERED: NALOXONE HCL INJ 0.4 MG/ML AMP IV PRN (18:30)
[2021-03-27] MEDS ORDERED: HYDROMORPHONE 0.2MG/ML-SOD CHL 30ML PCA SYRINGE IV PRN (18:30)
[2021-03-27] MEDS ORDERED: ONDANSETRON HCL INJ 2MG/ML 2ML 2 MG/ML VIAL IV PRN (18:30)
[2021-03-27] MEDS ORDERED: PROPOFOL IV EMULSION 10 MG/ML 20 ML VIAL ONE (19:26)
[2021-03-27] MEDS ORDERED: DEXAMETHASONE SOD PHOS INJ 4 MG/ML SDV ONE (19:26)
[2021-03-27] MEDS ORDERED: ONDANSETRON HCL INJ 2MG/ML 2ML 2 MG/ML VIAL ONE (19:26)
[2021-03-27] MEDS ORDERED: LIDOCAINE HCL 2% LOCAL INJ 5 ML SDV VIAL INJ ONE (19:26)
[2021-03-27] MEDS ORDERED: POVIDONE IODINE 0.05% 0.05 % ML PO ONE (19:26)
[2021-03-27] MEDS ORDERED: GLYCOPYRROLATE INJ 0.2 MG/ML VIAL ONE (19:26)
[2021-03-27] MEDS ORDERED: SEVOFLURANE INHAL SOLN 250 ML PEN BTL ONE (19:26)
[2021-03-27] MEDS ORDERED: NEOSTIGMINE 1 MG/ML 10ML VIAL ONE (19:26)
[2021-03-27] MEDS ORDERED: ROCURONIUM BROMIDE 10 MG/ML 5ML VIAL IV ONE (19:26)
[2021-03-27 19:53] VITALS: BP 144/88
[2021-03-27] MEDS: METOPROLOL TARTRATE INJ 1 MG/ML VIAL IV PRN (21:18)
[2021-03-27] MEDS ORDERED: Cefazolin 1 GM in SODIUM CHLORIDE 0.9% 50ML 50 ML IV SCH ×4 (22:00)
[2021-03-28 04:00] VITALS: BP 146/76
[2021-03-28] MEDS: PIPERACILLIN/TAZOBACTAM 3.375 GM in SODIUM CHLORIDE 0.9% 50ML 50 ML IV SCH ×3 (05:32→22:00)
[2021-03-28 05:49] LABS: BASOPHILS % 0.2 % (0.0-1.0); HEMATOCRIT 39.5 % (34.2-44.1); HEMOGLOBIN 12.1 g/dL (12.0-16.0); LYMPHOCYTES # (AUTO) 0.7 (1.0-3.2); LYMPHOCYTES % 8.2 % (18.0-39.1); MEAN CORPUSCULAR HGB CONC 30.6 g/dL (31-35); MEAN CORPUSCULAR VOLUME 88.2 fL (81-99); MONOCYTES % 11.1 % (4.4-11.3); NEUTROPHILS # (AUTO) 7.2 (2.1-6.9); NEUTROPHILS % 79.9 % (38.7-80.0); PLATELET COUNT 281 x10e3/uL (140-360); RED BLOOD COUNT 4.48 x10e6/uL (3.6-5.1); RED CELL DISTRIBUTION WIDTH 12.5 % (11.7-14.4)
[2021-03-28] MEDS: SODIUM CHLORIDE 0.9% 1000ML 1,000 ML IV SCH ×2 (05:59→15:59)
[2021-03-28 06:10] LABS: ANION GAP 18.4 mmol/L (8-16); CALCIUM 8.7 mg/dL (8.4-10.2); CREATININE, SERUM 0.68 mg/dL (0.57-1.11); POTASSIUM 4.4 mmol/L (3.5-5.1)
[2021-03-28 07:37] VITALS: BP 146/76
[2021-03-28] MEDS: AMIODARONE HCL 200 MG TAB PO SCH ×2 (08:39→17:01)
[2021-03-28] MEDS: DIGOXIN 0.125 MG TAB PO SCH (08:39)
[2021-03-28] MEDS: METOPROLOL TARTRATE 50 MG TAB PO SCH ×2 (08:40→17:01)
[2021-03-28] MEDS: FAMOTIDINE 20 MG TAB PO SCH ×2 (08:40→20:52)
[2021-03-28] MEDS: INSULIN GLARGINE 100 UNITS/ML VIAL SQ SCH (08:40)
[2021-03-28] MEDS: INSULIN LISPRO 100 UNIT/1 ML 3ML VIAL SQ SCH ×4 (08:40→20:54)
[2021-03-28 12:11] VITALS: BP 130/67
[2021-03-28] MEDS: RIVAROXABAN 10 MG TABLET PO SCH (17:01)
[2021-03-28 19:59] VITALS: BP 140/49
[2021-03-28 20:00] VITALS: BP 140/49
[2021-03-28] MEDS: ACETAMINOPHEN 325 MG TAB PO PRN (20:23)
[2021-03-28 23:55] VITALS: BP 134/68
[2021-03-29] VITALS (7 sets, daily range): BP systolic 115–147; BP diastolic 58–79
[2021-03-29] MEDS: SODIUM CHLORIDE 0.9% 1000ML 1,000 ML IV SCH ×2 (01:59→14:37)
[2021-03-29] MEDS: PIPERACILLIN/TAZOBACTAM 3.375 GM in SODIUM CHLORIDE 0.9% 50ML 50 ML IV SCH (06:00)
[2021-03-29 06:09] LABS: BASOPHILS % 0.4 % (0.0-1.0); EOSINOPHILS % 0.1 % (0.0-6.0); HEMATOCRIT 36.8 % (34.2-44.1); HEMOGLOBIN 11.4 g/dL (12.0-16.0); LYMPHOCYTES # (AUTO) 1.2 (1.0-3.2); LYMPHOCYTES % 15.6 % (18.0-39.1); MONOCYTES # (AUTO) 1.1 (0.2-0.8); MONOCYTES % 14.9 % (4.4-11.3); NEUTROPHILS # (AUTO) 5.2 (2.1-6.9); NEUTROPHILS % 68.5 % (38.7-80.0); PLATELET COUNT 295 x10e3/uL (140-360); RED BLOOD COUNT 4.23 x10e6/uL (3.6-5.1); RED CELL DISTRIBUTION WIDTH 12.9 % (11.7-14.4)
[2021-03-29 06:27] LABS: ANION GAP 14.5 mmol/L (8-16); CALCIUM 8.1 mg/dL (8.4-10.2); CREATININE, SERUM 0.58 mg/dL (0.57-1.11); POTASSIUM 3.5 mmol/L (3.5-5.1)
[2021-03-29] MEDS: AMIODARONE HCL 200 MG TAB PO SCH ×2 (09:26→16:40)
[2021-03-29] MEDS: GLIPIZIDE 5 MG TAB ER PO SCH (09:26)
[2021-03-29] MEDS: METOPROLOL TARTRATE 50 MG TAB PO SCH ×2 (09:26→16:41)
[2021-03-29] MEDS: DIGOXIN 0.125 MG TAB PO SCH (09:26)
[2021-03-29] MEDS: FAMOTIDINE 20 MG TAB PO SCH ×2 (09:26→21:35)
[2021-03-29] MEDS: INSULIN GLARGINE 100 UNITS/ML VIAL SQ SCH (10:17)
[2021-03-29] MEDS: INSULIN LISPRO 100 UNIT/1 ML 3ML VIAL SQ SCH ×4 (10:26→21:36)
[2021-03-29] MEDS: HYDROCODONE/APAP 7.5MG-325MG 1 EA TAB PO PRN (16:41)
[2021-03-29] MEDS: RIVAROXABAN 10 MG TABLET PO SCH (16:41)
[2021-03-29] MEDS: ACETAMINOPHEN/CODEINE 300MG - 30MG TAB PO PRN (21:41)
[2021-03-30] VITALS: BP 171/60
[2021-03-30 04:00] VITALS: BP 156/75
[2021-03-30 04:53] LABS: BASOPHILS % 0.4 % (0.0-1.0); EOSINOPHILS % 0.5 % (0.0-6.0); HEMATOCRIT 37.5 % (34.2-44.1); HEMOGLOBIN 11.2 g/dL (12.0-16.0); LYMPHOCYTES # (AUTO) 1.4 (1.0-3.2); MEAN CORPUSCULAR HEMOGLOBIN 27.4 pg (28-32); MEAN CORPUSCULAR HGB CONC 29.9 g/dL (31-35); MEAN CORPUSCULAR VOLUME 91.7 fL (81-99); MONOCYTES # (AUTO) 0.9 (0.2-0.8); MONOCYTES % 15.3 % (4.4-11.3); NEUTROPHILS # (AUTO) 3.3 (2.1-6.9); NEUTROPHILS % 58.3 % (38.7-80.0); PLATELET COUNT 217 x10e3/uL (140-360); RED BLOOD COUNT 4.09 x10e6/uL (3.6-5.1); RED CELL DISTRIBUTION WIDTH 12.9 % (11.7-14.4)
[2021-03-30] MEDS: HYDROCODONE/APAP 7.5MG-325MG 1 EA TAB PO PRN (05:29)
[2021-03-30 05:34] LABS: ANION GAP 15.2 mmol/L (8-16); CALCIUM 7.9 mg/dL (8.4-10.2); CREATININE, SERUM 0.53 mg/dL (0.57-1.11); POTASSIUM 4.2 mmol/L (3.5-5.1)
[2021-03-30 08:00] VITALS: BP 115/79
[2021-03-30 09:09] VITALS: BP 126/75
[2021-03-30] MEDS: INSULIN GLARGINE 100 UNITS/ML VIAL SQ SCH (09:28)
[2021-03-30] MEDS: INSULIN LISPRO 100 UNIT/1 ML 3ML VIAL SQ SCH ×2 (09:28→12:45)
[2021-03-30] MEDS: AMIODARONE HCL 200 MG TAB PO SCH (09:28)
[2021-03-30] MEDS: GLIPIZIDE 5 MG TAB ER PO SCH (09:28)
[2021-03-30] MEDS: DIGOXIN 0.125 MG TAB PO SCH (09:29)
[2021-03-30] MEDS: METOPROLOL TARTRATE 50 MG TAB PO SCH (09:29)
[2021-03-30] MEDS: FAMOTIDINE 20 MG TAB PO SCH (09:29)
[2021-03-30] MEDS: ACETAMINOPHEN/CODEINE 300MG - 30MG TAB PO PRN (09:30)
[2021-03-30 12:00] VITALS: BP 144/74
[2021-03-30] MEDS ORDERED: ONDANSETRON HCL 4 MG ORAL DISINTEGRATING TAB PO PRN (12:15)
[2021-03-30] MEDS ORDERED: DIGOXIN125 MCG PO (14:16)
[2021-03-30] MEDS ORDERED: AMIODARONE HCL200 MG PO (14:16)
[2021-03-30] MEDS ORDERED: FAMOTIDINE20 MG PO (14:17)
[2021-03-30] MEDS ORDERED: XARELTO10 MG PO (14:17)
[2021-03-30] MEDS ORDERED: LANTUS 3ML100 UNITS/ SQ (14:18)
[2021-03-30] MEDS ORDERED: HUMALOG MI100 UNIT/2 SQ (14:19)
[2021-03-30] MEDS ORDERED: GLIPIZIDE5 MG PO (14:20)
[2021-03-30] MEDS ORDERED: METOPROLOL TAR100 MG PO (14:21)
[2021-03-30] MEDS ORDERED: ACETAMINOPHEN325 M1 PO (14:22)
== END 2021-03-30 15:32 | DRG 480 ==
LOC: ER 10:51 → ERHOLD 14:35 → MED/SURG2 20:47 → ICU 03-17 14:53 → MED/SURG2 03-20 17:54
PROVIDERS: ADMIT Internal Medicine; ATTEND Internal Medicine
PROC: XW0 New Technology, Anatomical Regions, Introduction (ICD-10-PCS; 2021-03-15)
PROC: 02HV33Z Insertion of Infusion Device into Superior Vena Cava, Percutaneous Approach (ICD-10-PCS; 2021-03-16)
PROC: 0QUC0KZ Supplement Left Lower Femur with Nonautologous Tissue Substitute, Open Approach (ICD-10-PCS; 2021-03-27)
PROC: 0QSC04Z Reposition Left Lower Femur with Internal Fixation Device, Open Approach (ICD-10-PCS; principal; 2021-03-27 12:00)
DX: S72.452A Displaced supracondylar fracture without intracondylar extension of lower end of left femur, initial encounter for closed fracture (principal); U07.1 COVID-19; G92.8 Other toxic encephalopathy; I50.23 Acute on chronic systolic (congestive) heart failure; Z16.12 Extended spectrum beta lactamase (ESBL) resistance; I13.0 Hypertensive heart and chronic kidney disease with heart failure and stage 1 through stage 4 chronic kidney disease, or unspecified chronic kidney disease; M19.90 Unspecified osteoarthritis, unspecified site; M48.02 Spinal stenosis, cervical region; Z79.01 Long term (current) use of anticoagulants; E11.65 Type 2 diabetes mellitus with hyperglycemia; E66.01 Morbid (severe) obesity due to excess calories; Z68.39 Body mass index [BMI] 39.0-39.9, adult; E87.6 Hypokalemia; K58.0 Irritable bowel syndrome with diarrhea; E78.5 Hyperlipidemia, unspecified; N30.90 Cystitis, unspecified without hematuria; Z78.1 Physical restraint status; E11.22 Type 2 diabetes mellitus with diabetic chronic kidney disease; N18.30 Chronic kidney disease, stage 3 unspecified; Z91.013 Allergy to seafood; Z87.891 Personal history of nicotine dependence
CPT/HCPCS: 36415; 36569; 51700; 70450; 71045; 72125; 72170; 76000; 80048; 80053; 81001; 82542; 82550; 82553; 82948; 83605; 83735; 83880; 84100; 84439; 84443; 84484; 85025; 85610; 85730; 86850; 86900; 87040; 87086; 87186; 87493; 93005; 93306; 94799; 96372; 97139; 99284; C1713; J0690; J1100; J1160; J1650; J1815; J1885; J2001; J2250; J2270; J2405; J2543; J2710; J3010; J3475; J7030; J7050; U0002